=== PATIENT | female | born 1945 | race Caucasian/White ===

== ENCOUNTER → 2016-10-05 | Outpatient (CLI) | payer MEDICARE ==
[~2016-10-05] MED LIST: ALBU0.08 INH; ATOR10TA82 PO; ATV5 PO; CLOB-65 TOP; CLTP PO; FLUT0.15 NAE; IRBE1TAB50 PO; LEVAAER2 INH; LISI-461 PO; METO-217 PO; METO50TA7 PO; MULT-513 PO; NTRSLP4 SL; TIZA4CAP PO; VERA240T20 PO
--- NOTE | 2016-10-05 13:03 | DIAGNOSTIC IMAGING REPORT ---
CT SCAN OF THE PARANASAL SINUSES CLINICAL HISTORY: Chronic sinusitis. COMPARISON STUDY: CT scan of the paranasal sinuses dated 10/02/2008. TECHNIQUE: High-resolution CT scan of the paranasal sinuses is performed. Images are reviewed in the axial, sagittal, and coronal planes. IV contrast was not administered for this examination. The examination is performed using the fusion protocol. CT DOSE: 627.59 mGy.cm FINDINGS: Postoperative change: Findings suggest previous left maxillary antrectomy with antrostomy formation as well as bilateral ethmoid sinus resection. Maxillary antra: There is subtotal opacification of the left maxillary antrum which is somewhat hyperdense secretions. There is thickening and sclerosis of the sinus wall indicating chronicity. The right maxillary antrum is clear. Ethmoid cavities: Trace mucosal thickening is seen bilaterally. Sphenoid sinuses: Clear. Frontal sinuses: Trace mucosal thickening is similar right. Clear on the left. Ostiomeatal complexes: The left maxillary antrostomy is occluded. The right ostomy complex is patent. Frontoethmoidal and sphenoethmoidal recesses: Patent bilaterally. Carotid arteries: The carotid arteries are covered. The left carotid artery is protuberant. A septal attachment is seen on the right. Ethmoid roofs: There is slightly asymmetric elevation of the left ethmoid roof as compared to the right. Nasal turbinates: There is mild be bullosa of the right superior and middle nasal turbinates.. Nasal septum: There is rightward deviation of the bony nasal septum with a leftward projecting spur. Optic nerves: Covered. Orbits: The bony orbits are intact. Orbital contents are normal in appearance. Calvarium: The skeletal structures are osteopenic. The imaged calvarium is normal in appearance. Mastoid air cells: Well pneumatized. Brain parenchyma: Partially visualized brain parenchyma is within normal limits. IMPRESSION: 1. Chronic appearing left maxillary sinus disease as above. 2. No significant paranasal sinus disease is seen throughout the remaining paranasal sinuses. 3. Postoperative change as above. Electronically signed by: Marco Gonsales M.D. 10/05/2016 1:01 PM Dictated Date/Time: 10/05/2016 12:56 PM
[2016-10-05 16:47] LABS: BASO % 0.9 %; BASO ABS # 0.05 K/uL (0-0.2); COMPLETE YES; EOS % 3.6 %; HEMATOCRIT 42.1 % (37-47); IG% 0.2 %; LYMPH % 34.8 %; LYMPH ABS # 2.03 K/uL (1.2-3.4); MEAN CELL VOLUME 93.3 fL (80-100); MEAN CORPUSCULAR HEMOGLOBIN 31.5 pg (25-34); MEAN CORPUSCULAR HGB CONC 33.7 g/dl (32-36); MEAN PLATELET VOLUME 10.5 fL (7.4-10.4); MONO % 7.9 %; NEUT % 52.6 %; PLATELET COUNT 198 K/uL (130-400); RED BLOOD COUNT 4.51 M/uL (4.2-5.4); WHITE BLOOD COUNT 5.83 K/uL (4.8-10.8)
[2016-10-05 17:01] LABS: PROTHROMBIN TIME (PATIENT) 10.3 SECONDS (9.0-12.0)
[2016-10-05 17:16] LABS: POTASSIUM 3.7 mmol/L (3.5-5.1)
== END | disposition home or self-care (01) ==
LOC: C.CTS 12:35
DX: Z01.818 Encounter for other preprocedural examination (principal); J32.9 Chronic sinusitis, unspecified

== ENCOUNTER → 2016-10-16 | Day surgery (SDC) | payer MEDICARE, OTHER ==
[2016-10-12 08:47] VITALS: Ht 160 cm; Wt 97.7 kg
[~2016-10-16] VITALS: Ht 160 cm; Wt 97.7 kg
[~2016-10-16] MED LIST changes: -ATV5 PO; +CEFAZOLIN 2000 MG/60 ML D5W IV SCH; -CLOB-65 TOP; +DEXAMETHASONE SOD INJ 4 MG/ML VIAL ONE; +EpINEphrine INJ 1MG/ML AMP 1 MG/ML AMP ONE; +FENTANYL CITRATE INJ 50 MCG/1 ML 2 ML VIAL ONE; +HYDROCODONE/ACETAMOPHEN 5/325MG TAB PO PRN; +LACTATED RINGER'S 1000ML 1,000 ML IV SCH; +LIDOCAINE 4% MPF SOAK 5 ML = 1 DOSE TOP ONE; +LIDOCAINE HCL 2% 2 ML VIAL (20MG/ML) ONE; +LIDOCAINE/EPINEPHRINE 1% INJ 50 ML VIAL ONE; -LISI-461 PO; -METO50TA7 PO; +MIDAZOLAM HCL 1 MG/ML 2ML VIAL ONE; +ONDANSETRON INJ 2 MG/ML 2 ML VIAL IV PRN; +ONDANSETRON INJ 2 MG/ML 2 ML VIAL ONE; +OXYMETAZOLINE HCL 0.05% NA SPR 15 ML BTL PRN; +OXYMETAZOLINE HCL 0.05% NA SPR 15 ML BTL SCH; +PROPOFOL IV EMULSION 10 MG/ML 20 ML VIAL IV ONE; +SUCCINYLCHOLINE CHLORIDE 20 MG/ML 10 ML VIAL IV ONE
--- NOTE | 2016-10-16 07:30 | History & Physical Bridge - [place] ---
H&P Re-Evaluation Bridge Note: I have examined the patient, reviewed the History & Physical and in the interval since the performance of the History & Physical I have noted the following changes of clinical significance: No changes noted
--- NOTE | 2016-10-16 08:50 | Discharge Instructions ---
Discharge Instructions Date of Service October 16, 2016. Admission Reason for Admission: Chronic Sinusitis Discharge Discharge Diagnosis / Problem: SAME Discharge Goals Goal(s): Therapeutic intervention Activity Recommendations Activity Limitations: as noted below LIGHT ACTIVITY FOR 2WEEKS; NO NOSE BLOWING FOR 2WEEKS . Current Hospital Diet Patient's current hospital diet: Discharge Diet Recommended Diet: Regular Diet Procedures Procedures Performed: Left Maxillary Antrostomy Revision Pending Studies Studies pending at discharge: no Medical Emergencies . Who to Call and When: Medical Emergencies: If at any time you feel your situation is an emergency, please call 911 immediately. . Non-Emergent Contact Non-Emergency issues call your: Surgeon . . "Provider Documentation" section prepared by Ivan Torres. . VTE Core Measure Inpt VTE Proph given/why not?: SCD's
--- NOTE | 2016-10-16 09:24 | OPERATIVE REPORT ---
DATE OF OPERATION: 10/16/2016 PREOPERATIVE DIAGNOSIS: Left chronic maxillary sinusitis. POSTOPERATIVE DIAGNOSIS: Left chronic maxillary sinusitis. PROCEDURE: Revision left maxillary antrostomy with tissue removal. SURGEON: Ivan Torres MD ANESTHESIA: General endotracheal. ESTIMATED BLOOD LOSS: 50 mL. FINDINGS: Severely inflamed left maxillary sinus with purulence and inspissated secretions. SPECIMENS: 1. Left maxillary sinus mucosa for permanent pathological assessment. 2. Left maxillary sinus purulence for Gram stain, aerobic and anaerobic culture and sensitivity. COMPLICATIONS: None. INDICATIONS FOR THE PROCEDURE: The patient is a 71-year-old female with a history of chronic rhinosinusitis who underwent endoscopic sinus surgery by another physician in the past, still continued to have problems with left chronic maxillary sinusitis unresponsive to maximal medical therapy including systemic antibiotics and steroids. A posttreatment CT scan showed near total complete opacification of the left maxillary sinus with blockage of the left ostiomeatal complex. She presents for the above-mentioned procedure on an outpatient elective basis. DESCRIPTION OF PROCEDURE: After informed consent had been obtained from the patient, the patient was wheeled to the operating room and placed on the operating table in the supine position. Monitors were placed. After induction of general endotracheal anesthesia, the patient was prepped in the usual fashion for endoscopic sinus surgery. Lidocaine and epinephrine pledget was placed into the left nasal cavity and middle meatus. After allowing adequate time for vasoconstriction and anesthesia, the left-sided pledget was removed and a [place] elevator was used to medialize the left middle turbinate. The left middle turbinate and lateral nasal wall were injected with 1% lidocaine with 1:100,000 epinephrine. A lidocaine and epinephrine pledget was then placed into the left middle meatus. The left pledget was then removed and there was residual uncinate process, which was removed using a [place] elevator, straight Damir-Cut forceps, and powered instrumentation. The natural ostium of the left maxillary sinus was identified and this was enlarged anteriorly, posteriorly, and inferiorly using backbiting forceps and powered instrumentation. Immediately, there was abnormal left maxillary sinus mucosa, which was identified and several pieces of this were sent off for permanent pathological assessment due to the abnormal gross appearance of the mucosa. There is a large amount of purulence within the left maxillary sinus, which was trapped with a Lukens tube and sent off for Gram stain, aerobic and anaerobic culture and sensitivity. There was inspissated mucus, which was also embedded within the inferior aspect of the left maxillary sinus and it took a copious amount of irrigation and suction to remove the inspissated mucus in its entirety. A wide antrostomy was performed due to the severe findings, so that this can be cleaned out in the office as necessary. The sinonasal cavity on the left hand side was suctioned. Merogel was placed into the left ethmoid cavity and middle meatus. An orogastric tube was placed and the stomach was suctioned free of any stomach contents. This marked the end of the case. The patient tolerated the procedure well. There were no apparent complications. The patient was extubated and transferred to recovery room in stable condition. I attest to the content of the Intraoperative Record and any orders documented therein. Any exceptio ns are noted below.
[2016-10-16 09:33] VITALS: TEMP 36.1
--- NOTE | 2016-10-16 10:21 | Anesthesia Progress Nt - [facility] ---
Anesthesia Post Op Note Date & Time October 16, 2016 at 10:21 Vital Signs Pain Intensity: 4 Vital Signs Past 12 Hours Date Time Temp Pulse Resp B/P Pulse Ox O2 Delivery O2 Flow Rate FiO2 10/16/16 09:33 36.1 74 18 136/84 96 Room Air 10/16/16 09:30 101/54 10/16/16 09:26 72 13 97 10/16/16 09:26 72 13 10/16/16 09:25 36.6 95 Room Air 10/16/16 09:25 102/56 10/16/16 09:23 73 4 97 10/16/16 09:23 73 4 10/16/16 09:20 113/58 10/16/16 09:18 75 10 10/16/16 09:18 75 10 97 10/16/16 09:17 74 8 89 10/16/16 09:17 73 8 10/16/16 09:15 104/56 10/16/16 09:12 74 5 10/16/16 09:12 74 5 99 10/16/16 09:10 114/56 10/16/16 09:07 76 1 99 10/16/16 09:07 76 1 10/16/16 09:06 77 6 100 10/16/16 09:06 77 6 10/16/16 09:05 108/62 10/16/16 09:01 79 0 10/16/16 09:01 79 0 99 10/16/16 09:01 36 81 12 111/61 98 Mask 6 10/16/16 09:00 110/60 10/16/16 08:57 111/61 10/16/16 08:56 81 18 10/16/16 08:56 81 18 98 10/16/16 07:20 36.5 80 20 145/80 94 Room Air Notes Mental Status: alert / awake / arousable, participated in evaluation Pt Amnestic to Procedure: Yes Nausea / Vomiting: adequately controlled Pain: adequately controlled Airway Patency, RR, SpO2: stable & adequate BP & HR: stable & adequate Hydration State: stable & adequate Anesthetic Complications: no major complications apparent Pt doing well.
[2016-10-16 10:35] VITALS: BP 129/75; PULSE 76; O2SAT 94
== END | disposition home or self-care (01) ==
LOC: X.SURG 06:55
DX: J32.0 Chronic maxillary sinusitis (principal); I10 Essential (primary) hypertension; E78.5 Hyperlipidemia, unspecified; J45.909 Unspecified asthma, uncomplicated; K21.0 Gastro-esophageal reflux disease with esophagitis; F32.9 Major depressive disorder, single episode, unspecified; M81.0 Age-related osteoporosis without current pathological fracture; Z79.899 Other long term (current) drug therapy

== ENCOUNTER → 2017-03-05 | Outpatient (CLI) | payer MEDICARE ==
[~2017-03-05] MED LIST changes: -ATOR10TA82 PO; +ATOR10TA88 PO; -CEFAZOLIN 2000 MG/60 ML D5W IV SCH; -DEXAMETHASONE SOD INJ 4 MG/ML VIAL ONE; -EpINEphrine INJ 1MG/ML AMP 1 MG/ML AMP ONE; -FENTANYL CITRATE INJ 50 MCG/1 ML 2 ML VIAL ONE; -FLUT0.15 NAE; -HYDROCODONE/ACETAMOPHEN 5/325MG TAB PO PRN; -LACTATED RINGER'S 1000ML 1,000 ML IV SCH; -LIDOCAINE 4% MPF SOAK 5 ML = 1 DOSE TOP ONE; -LIDOCAINE HCL 2% 2 ML VIAL (20MG/ML) ONE; -LIDOCAINE/EPINEPHRINE 1% INJ 50 ML VIAL ONE; -MIDAZOLAM HCL 1 MG/ML 2ML VIAL ONE; -ONDANSETRON INJ 2 MG/ML 2 ML VIAL IV PRN; -ONDANSETRON INJ 2 MG/ML 2 ML VIAL ONE; -OXYMETAZOLINE HCL 0.05% NA SPR 15 ML BTL PRN; -OXYMETAZOLINE HCL 0.05% NA SPR 15 ML BTL SCH; -PROPOFOL IV EMULSION 10 MG/ML 20 ML VIAL IV ONE; -SUCCINYLCHOLINE CHLORIDE 20 MG/ML 10 ML VIAL IV ONE
== END | disposition home or self-care (01) ==
LOC: C.PATHSPEC 14:28
PROVIDERS: ATTEND Dermatology
DX: L57.0 Actinic keratosis (principal)

== ENCOUNTER 2024-07-18 09:47 | Inpatient (IN) ==
[2024-07-18] MEDS: SODIUM CHLORIDE 0.9% 500 ML IV ONE (10:47)
[2024-07-18 10:57] LABS: Basophils # (auto) 0.03 K/uL (0.00-0.20); Basophils % (auto) 0.4 %; Eosinophils # (auto) 0.15 K/uL (0.00-0.50); Hematocrit (blood only) 42.4 % (37.0-47.0); Hemoglobin 14.2 g/dl (12.0-16.0); Immature Granulocytes # (auto) 0.03 K/uL (0.01-0.20); Immature Granulocytes % (auto) 0.4 %; Lymphocytes % (auto) 20.5 %; Mean Corpuscular Hemoglobin 31.3 pg (25.0-34.0); Mean Corpuscular Hgb Conc 33.5 g/dL (32.0-36.0); Mean Corpuscular Volume 93.6 fL (80.0-100.0); Mean Platelet Volume 9.6 fL (9.4-12.4); Monocytes # (auto) 0.58 K/uL (0.11-0.59); Monocytes % (auto) 7.9 %; Neutrophils # (auto) 5.03 K/uL (1.40-6.50); Neutrophils % (auto) 68.8 %; Platelet Count 213 K/uL (130-400); RDW Coefficient of Variation 11.7 % (11.5-14.5); RDW Standard Deviation 40.5 fL (36.4-46.3); Red Blood Count 4.53 M/uL (4.20-5.40); White Blood Count 7.32 K/ul (4.8-10.8)
--- NOTE | 2024-07-18 11:00 | Emergency Department Note ---
Impression & Plan Acute pancreatitis ADMIT ED Provider Note HPI: History obtained from patient. The patient is a 79-year-old female who presents the emergency department with a chief complaint of abdominal pain. Patient states that on 07/04 she had a ultrasound-guided biopsy done of her pancreas at [facility]. Patient states that since she had her procedure she has had some abdominal pain that radiates to her left flank area. Patient states that her primary doctor was concerned that she might have a post biopsy pancreatitis and therefore she was referred to the ER for further management. Patient states she has had a CT scan done in the outpatient setting shortly after her procedure that did show evidence of pancreatitis. Patient denies any vomiting, on arrival here to the ED the patient is hypertensive but otherwise hemodynamically stable, she appears to be in no acute distress. ROS: - Per HPI Differential Diagnosis: Acute pancreatitis, gallstone pancreatitis, acute choledocholithiasis, acute gastritis, small bowel obstruction, abscess, hemorrhage from biopsy site, amongst other potential pathologies. *Outpatient medications and allergy history reviewed. PE: General: Alert HEENT: Normocephalic, trachea midline Eyes: Extraocular eye movement is intact, no scleral erythema Pulmonary: Clear to auscultation bilaterally, no wheezing Cardio: Regular rate and rhythm GI: Abdomen is soft to palpation, there is tenderness over the mid abdomen to palpation without guarding or rigidity : No suprapubic tenderness MSK: No evidence of trauma or malformation of the extremities, no edema Skin: No evidence of rash Neuro: Alert, no focal deficits Psychiatric: Cooperative INDEPENDENT INTERPRETATIONS: rework operator: (As interpreted by myself): - An order was placed for continuous cardiac monitoring - Patient was noted to be in sinus rhythm with a rate of 70 EKG: (As interpreted by myself): Rate: 72 Rhythm: Normal sinus rhythm Intervals: Within normal limits ST changes: No ST elevation Time: 1044 Interventions provided in ED: -IV fluid bolus, IV morphine, IV Zofran Medical Decision Making: IV was established lab work obtained, patient was placed on public administration teacher. Lab work shows no leukocytosis, hemoglobin is normal, platelet count is normal, CMP does not show any evidence of any critical findings, troponin is negative x 1. EKG shows normal sinus rhythm with a rate of [address] imaging of the abdomen pelvis with IV contrast was obtained, there is a nonspecific density of the pancreatic tail consistent with possible cystic lesion, pseudocyst, or postbiopsy fluid collection per the interpreting radiologist. There is also evidence of acute pancreatitis. Incidental note of pulmonary embolism in the segmental and subsegmental branches of the right lower lobe are also noted. On my reassessment the patient has some nausea but her pain is improved from previous. I discussed the patient's presentation and CT imaging findings with on-call gastroenterology, Dr. Ferreira. Following our discussion he does have suspicion that the nonspecific density noted on CT imaging is likely related to the patient's recent biopsy, this does correlate with her symptom onset as well. He recommends n.p.o. status, IV fluid resuscitation, and pain medicine as needed. At this time there is low suspicion that the density represents any acute hemorrhage therefore the patient would be considered safe for anticoagulation/heparinization given finding of pulmonary embolism on CT imaging. I discussed all of the above findings with the on-call PA for the admitting service for Beatriz Syed PA-C, the patient was placed for admission in stable condition to the service of Dr. Wallace. Will defer initiation and preferences for anticoagulation/heparinization to the admitting team following our discussion. Consultants/Discussions held with other healthcare providers: -Hospitalist, Dr. Wallace -Gastroenterology, Dr. Ferreira Disposition discussion held by myself with: -Patient Diagnosis: 1. Acute pancreatitis 2. Abdominal pain, acute 3. Pulmonary embolism, acute, right lower lobe Disposition: Admission Arian Montague DO Emergency Medicine Past Med/Surg History Problem List (Updated 07/18/24 @ 16:50 by Arian Montague DO) Acute pancreatitis (Acute) Pulmonary emboli Acute pancreatitis Cervical radiculopathy Cervicalgia Cervical postlaminectomy syndrome Cervical myofascial pain syndrome Encounter for pre-operative examination Osteoporosis (Chronic) Asthma, cough variant (Chronic) GERD (gastroesophageal reflux disease) (Chronic) Dysphagia (Chronic) HTN (hypertension) (Chronic) Dyslipidemia (Chronic) Migraine (Chronic) ACS (acute coronary syndrome) Medical History (Updated 07/18/24 @ 16:50 by Arian Montague DO) Nausea and vomiting after administration of anesthetic agent Skin cancer of breast left Pancreatitis GERD (gastroesophageal reflux disease) Migraine Gastric bezoar Hyperlipidemia Hypertension Asthma "stress induced" Surgical History Hx of Moh's micrographic surgery for skin cancer left breast skin cancer History of bilateral salpingo-oophorectomy (BSO) History of partial hysterectomy History of dilatation and curettage History of esophagogastroduodenoscopy (EGD) History of colonoscopy History of exploratory laparotomy x2 for lysis of adhesions History of Nathan fundoplication History of umbilical hernia repair History of colostomy reversal 12/2008 @ [facility] History of colectomy 10/2008--sigmoid colectomy and colostomy d/t perforation @ [facility] History of appendectomy History of cholecystectomy History of tonsillectomy and adenoidectomy History of endoscopic sinus surgery S/P cervical spinal fusion C2-5; normal ROM History of cardiac cath 2015, no stent follows with Dr. Hart Family History Aunt Breast cancer Cancer Uterine cancer Mother Parkinson disease Father Stroke Social History Smoking Status: Never smoker Second Hand Exposure: Yes (both parents smoked); Do You Dip or Chew Tobacco: No; Hx Alcohol Use: Yes Alcohol type: wine Hx Substance Use: No Preferred Language: Wolof Communication Ability: Effective Automatic Line Set Up Mechanic Required: No Beliefs That Will Affect Care: None marital status: Current Living Situation: Spouse current occupational status: retired Feels Safe at Home: Yes Assistive Devices: Glasses Allergies Allergies Allergy/AdvReac Type Severity Reaction Status Date / Time moxifloxacin [From Avelox] Allergy Severe Unknown Verified 06/09/24 09:40 barium sulfate AdvReac Severe RUPTURE OF Verified 06/09/24 09:40 BOWEL codeine AdvReac Unknown EFFECTS Verified 06/09/24 09:40 LAST ABOUT 1 WEEK LYNSEY Inhibitors AdvReac Cough Verified 06/09/24 09:40 ciprofloxacin [From Cipro] AdvReac tendon Verified 06/09/24 09:40 pain and weakness Home Meds Home Medications Medication Instructions Recorded Confirmed atorvastatin 20 mg tablet 20 mg PO PM 01/12/23 07/18/24 losartan 100 mg tablet 100 mg PO DAILY 01/12/23 07/18/24 metoprolol succinate 50 mg 50 mg PO DAILY 01/12/23 07/18/24 tablet,extended release 24 hr tizanidine 4 mg capsule 4 mg PO DAILY PRN muscle spasms 01/12/23 07/18/24 verapamil 240 mg tablet,extended 360 mg PO DAILY 02/27/24 07/18/24 release hydrocodone 5 mg-acetaminophen 325 1 tab PO Q8H 07/18/24 07/18/24 mg tablet pantoprazole 40 mg tablet,delayed 40 mg PO QAM 07/18/24 07/18/24 release Results & Data (ED) Vital Signs Vital Signs - 24 hr 07/18/24 09:52 07/18/24 10:44 07/18/24 10:44 Temperature 36.9 C Temperature Source Temporal Artery Scan Pulse Rate 79 Pulse Rate [Left Finger] 72 Respiratory Rate 18 17 Respiratory Effort / Characteristics Non-Labored Spontaneous Respiratory Depth Normal Respiratory Pattern Regular Blood Pressure 130/68 Blood Pressure [Left Arm] 159/91 H Blood Pressure Mean 88 Blood Pressure Mean [Left Arm] 113 Blood Pressure Position Sitting Blood Pressure Position [Left Arm] Pulse Oximetry 93 94 94 Oxygen Delivery Method Room Air Room Air Room Air Sepsis Recent Fever Within 48 Hours No Sepsis New/Unexplained Change in Mental Status N/A Sepsis Action Taken by Nursing No Action Required 07/18/24 12:05 07/18/24 13:13 Temperature Temperature Source Pulse Rate 64 Pulse Rate [Left Finger] 70 Respiratory Rate 16 Respiratory Effort / Characteristics Respiratory Depth Respiratory Pattern Blood Pressure Blood Pressure [Left Arm] 195/91 H Blood Pressure Mean Blood Pressure Mean [Left Arm] 125 Blood Pressure Position Blood Pressure Position [Left Arm] Semi-fowlers Pulse Oximetry 96 Oxygen Delivery Method Room Air Sepsis Recent Fever Within 48 Hours Sepsis New/Unexplained Change in Mental Status Sepsis Action Taken by Nursing Laboratory Data 07/18/24 10:34 07/18/24 10:34 Lab Results 07/18/24 07/18/24 Range/Units 10:34 12:06 WBC 7.32 (4.8-10.8) K/ul RBC 4.53 (4.20-5.40) M/uL Hgb 14.2 (12.0-16.0) g/dl Hct 42.4 (37.0-47.0) % MCV 93.6 (80.0-100.0) fL MCH 31.3 (25.0-34.0) pg MCHC 33.5 (32.0-36.0) g/dL RDW Std Deviation 40.5 (36.4-46.3) fL RDW Coeff of Nancy 11.7 (11.5-14.5) % Plt Count 213 (130-400) K/uL MPV 9.6 (9.4-12.4) fL Immature Gran % (Auto) 0.4 % Neut % (Auto) 68.8 % Lymph % (Auto) 20.5 % [place] % (Auto) 7.9 % Eos % (Auto) 2.0 % Baso % (Auto) 0.4 % Neut # (Auto) 5.03 (1.40-6.50) K/uL Lymph # (Auto) 1.50 (1.20-3.40) K/uL [place] # (Auto) 0.58 (0.11-0.59) K/uL Eos # (Auto) 0.15 (0.00-0.50) K/uL Baso # (Auto) 0.03 (0.00-0.20) K/uL Immature Gran # (Auto) 0.03 (0.01-0.20) K/uL Sodium 136 (136-145) mmol/L Potassium 4.0 (3.5-5.1) mmol/L Chloride 101 (98-107) mmol/L Carbon Dioxide 28 (21-32) mmol/L Anion Gap 7 (3-11) BUN 14 (6-23) mg/dl Creatinine 0.81 (0.6-1.2) mg/dl Est Cr Clr Drug Dosing Not Reportable eGFR 74.72 BUN/Creatinine Ratio 17.3 (10-20) Glucose 164 H (70-99(Fasting)) mg/dl Calcium 9.6 (8.6-10.3) mg/dl Total Bilirubin 0.6 (0.2-1.0) mg/dl AST 14 (13-39) U/L ALT 23 (7-52) U/L Alkaline Phosphatase 65 (34-104) U/L Troponin I High Sens 3.7 (0-14) pg/ml Total Protein 6.2 (6.0-8.3) gm/dl Albumin 3.8 (3.4-5.0) gm/dl Globulin 2.4 L (2.5-4.0) gm/dl Albumin/Globulin Ratio 1.6 (0.9-2) Lipase 15 (11-82) U/L Urine Color Dark Yellow Urine Appearance Cloudy A (Clear) Urine pH 7.0 (4.5-7.5) Ur Specific [place] 1.021 (1.000-1.030) Urine Protein 2+ H (Negative) Urine Glucose (UA) Negative (Negative) Urine Ketones Trace H (Negative) Urine Blood Negative (Negative) Urine Nitrite Negative (Negative) Urine Bilirubin Negative (Negative) Urine Urobilinogen Negative (Negative) Ur Leukocyte Esterase 1+ H (Negative) Urine WBC (Auto) 6-10 H (0-5) /hpf Urine RBC (Auto) 0-2 (0-2) /hpf U Hyaline Cast (Auto) 0-2 (0-2) /lpf U Epithel Cells (Auto) 11-20 H (0-2) /hpf Urine Bacteria (Auto) 2+ H (None Seen) Calcium Oxalate Crystal Present A (None Prsent) Urine Mucus Present A (None Prsent) Administered Medications Discontinued Medications Hydromorphone HCl (Hydromorphone Inj 0.5 Mg/0.5 Ml Syr) 0.5 mg IV NOW STA Stop: 07/18/24 13:32 Last Admin: 07/18/24 13:42 Dose: 0.5 mg Documented By: CEF Sodium Chloride (Nss) 500 mls @ 999 mls/hr IV .Q31M ONE Stop: 07/18/24 10:55 Last Infusion: 07/18/24 12:04 Dose: Infused Documented By: Admin: 07/18/24 10:47 Dose: 999 mls/hr Documented By: ML Sodium Chloride (Nss) 1,000 mls @ 999 mls/hr IV .Q1H1M ONE Stop: 07/18/24 13:55 Last Admin: 07/18/24 13:47 Dose: 999 mls/hr Documented By: CEF Ioversol (Optiray 320 100ml) 94 ml IV ONCE ONE Stop: 07/18/24 11:44 Last Admin: 07/18/24 11:43 Dose: 94 ml Documented By: SARAH Ioversol (Optiray 320 125ml) 112 ml IV ONCE ONE Stop: 07/18/24 13:59 Last Admin: 07/18/24 13:58 Dose: 112 ml Documented By: SARAH Morphine Sulfate (Morphine Sulfate 4 Mg/Ml 1 Ml Carp\\Vial) 4 mg IV NOW STA Stop: 07/18/24 10:59 Last Admin: 07/18/24 12:02 Dose: 4 mg Documented By: CEF Ondansetron HCl (Ondansetron Inj 2 Mg/Ml 2 Ml Vial) 4 mg IV NOW STA Stop: 07/18/24 10:59 Last Admin: 07/18/24 12:00 Dose: 4 mg Documented By: CEF Imaging Data Radiologist's Impression: Abdomen/Pelvis CT 07/18/24 11:[address] WITH IV CONTRAST CT DOSE: 1447.39 mGy.cm HISTORY: Acute epigastric abdominal pain with reported pancreatitis abd pain, recent pacreas biopsy TECHNIQUE: Multiaxial CT images of the abdomen and pelvis were performed following the IV administration of 94 cc of Optiray, A dose lowering technique was utilized adhering to the principles of ALARA. COMPARISON STUDY: 12/22/2022, 10/28/2022, 03/23/2009, chest CT 10/28/2018 FINDINGS: Segmental and subsegmental right lower lobe pulmonary emboli incidentally noted. Small Bochdalek hernias. No pneumatosis or pneumoperitoneum. Unremarkable spleen, adrenal glands and liver. Cholecystectomy with intrahepatic and extrahepatic biliary ductal dilation which is likely postsurgical. The common bile duct measures 1.4 cm. Ovoid circumscribed centrally hypodense lesion posterior to the pancreatic tail on image 121 series 3 redemonstrated in retrospect this is unchanged dating back to the 12/22/2022 study and is new from 10/28/2018. There is mild interstitial and peripancreatic inflammatory stranding adjacent to the pancreatic tail. Intermediate density 2.1 x 1.7 x 1.5 cm lesion involves the superior aspect of the pancreatic tail on image 107 series 3 which is new from the prior studies. This abuts the adjacent greater curvature of the stomach. No pancreatic ductal dilation. No drainable fluid collections. Mild nonspecific bilateral perinephric stranding. Mild cortical thinning of the kidneys without hydronephrosis. Probable small cyst of the lateral interpolar left kidney. Unremarkable urinary bladder. Hysterectomy. The aorta and IVC are unremarkable. No lymphadenopathy. Small hiatal hernia. Colonic diverticulosis without acute diverticulitis. Sigmoid colon anastomotic suture. Prior ventral abdominal wall herniorrhaphy repair. No acute fracture. IMPRESSION: 1. Right lower lobe segmental and subsegmental pulmonary emboli. 2. Findings suggestive of mild acute pancreatitis of the pancreatic tail with intermediate density 2.1 cm pancreatic tail lesion which is new from the prior exam abutting the adjacent greater curvature of the stomach. Differential considerations include a solid versus complex primary cystic pancreatic lesion, complex pseudocyst versus post-biopsy collection. Follow-up recommended. 3. Hypodense 1.9 cm lesion posterior to the pancreatic tail redemonstrated which is similar in appearance to the study from 12/22/2022. 4. No drainable peripancreatic fluid collections or pancreatic ductal dilation. 5. Colonic diverticulosis without acute diverticulitis. ACT 112: Negative or not required by law. The above report was generated using voice recognition software. It may contain grammatical, syntax or spelling errors. Electronically signed by: Esequiel Gaston M.D. 07/18/2024 12:28 PM Discharge Plan Visit Data Chief Complaint: Referred by Doctor Stated Complaint: PANCREATITIS, REF BY DR CRESPO ED Provider: Arian Montague Discharge Problem: Acute pancreatitis Patient Disposition: Admitted As Inpatient Discharge Instructions Interventions: ED Discharge Assessment Last Done: 07/18/24 14:51
[2024-07-18 11:07] LABS: Alanine Aminotransferase 23 U/L (7-52); Albumin Globulin Ratio 1.6 (0.9-2); Albumin Level 3.8 gm/dl (3.4-5.0); Alkaline Phosphatase 65 U/L (34-104); Anion Gap 7 (3-11); Aspartate Aminotransferase 14 U/L (13-39); BUN Creatinine Ratio 17.3 (10-20); Bilirubin,Total 0.6 mg/dl (0.2-1.0); Blood Urea Nitrogen 14 mg/dl (6-23); Calcium 9.6 mg/dl (8.6-10.3); Carbon Dioxide 28 mmol/L (21-32); Chloride 101 mmol/L (98-107); Globulin 2.4 gm/dl (2.5-4.0); Glucose 164 mg/dl (70-99(Fasting)); Lipase 15 U/L (11-82); Sodium 136 mmol/L (136-145); Total Protein 6.2 gm/dl (6.0-8.3)
[2024-07-18 11:13] LABS: Troponin I High Sensitivity 3.7 pg/ml (0-14)
[2024-07-18] MEDS: OPTIRAY 320 100ml IV ONE (11:43)
[2024-07-18] MEDS: ONDANSETRON INJ 2 MG/ML 2 ML VIAL IV STA (12:00)
[2024-07-18] MEDS: MoRPHine SULFATE 4 MG/ML 1 ML CARP\\VIAL IV STA (12:02)
--- NOTE | 2024-07-18 12:29 | CT Scan Report ---
ABDOMEN AND PELVIS CT WITH IV CONTRAST CT DOSE: 1447.39 mGy.cm HISTORY: Acute epigastric abdominal pain with reported pancreatitis abd pain, recent pacreas biopsy TECHNIQUE: Multiaxial CT images of the abdomen and pelvis were performed following the IV administrat ion of 94 cc of Optiray, A dose lowering technique was utilized adhering to the principles of ALARA. COMPARISON STUDY: 12/22/2022, 10/28/2022, 03/23/2009, chest CT 10/28/2018 FINDINGS: Segmental and subsegmental right lower lobe pulmonary emboli incidentally noted. Small Dwayne dalek hernias. No pneumatosis or pneumoperitoneum. Unremarkable spleen, adrenal glands and liver. Cholecystectomy with intrahepatic and extrahepatic vonnie iary ductal dilation which is likely postsurgical. The common bile duct measures 1.4 cm. Ovoid circum scribed centrally hypodense lesion posterior to the pancreatic tail on image 121 series 3 redemonstra narciso in retrospect this is unchanged dating back to the 12/22/2022 study and is new from 10/28/2018. Ther e is mild interstitial and peripancreatic inflammatory stranding adjacent to the pancreatic tail. Int ermediate density 2.1 x 1.7 x 1.5 cm lesion involves the superior aspect of the pancreatic tail on im age 107 series 3 which is new from the prior studies. This abuts the adjacent greater curvature of th e stomach. No pancreatic ductal dilation. No drainable fluid collections. Mild nonspecific bilateral perinephric stranding. Mild cortical thinning of the kidneys without hydro nephrosis. Probable small cyst of the lateral interpolar left kidney. Unremarkable urinary bladder. H ysterectomy. The aorta and IVC are unremarkable. No lymphadenopathy. Small hiatal hernia. Colonic div erticulosis without acute diverticulitis. Sigmoid colon anastomotic suture. Prior ventral abdominal w all herniorrhaphy repair. No acute fracture. IMPRESSION: 1. Right lower lobe segmental and subsegmental pulmonary emboli. 2. Findings suggestive of mild acute pancreatitis of the pancreatic tail with intermediate density 2. 1 cm pancreatic tail lesion which is new from the prior exam abutting the adjacent greater curvature of the stomach. Differential considerations include a solid versus complex primary cystic pancreatic lesion, complex pseudocyst versus post-biopsy collection. Follow-up recommended. 3. Hypodense 1.9 cm lesion posterior to the pancreatic tail redemonstrated which is similar in appear ance to the study from 12/22/2022. 4. No drainable peripancreatic fluid collections or pancreatic ductal dilation. 5. Colonic diverticulosis without acute diverticulitis. ACT 112: Negative or not required by law. The above report was generated using voice recognition software. It may contain grammatical, syntax o r spelling errors. Electronically signed by: Esequiel Gaston M.D. 07/18/2024 12:28 PM
--- NOTE | 2024-07-18 13:03 | History & Physical Report ---
Date of Service July 18, 2024 Assessment & Plan (1) Acute pancreatitis: (2) Pulmonary emboli: (3) HTN (hypertension): (4) Dyslipidemia: (5) GERD (gastroesophageal reflux disease): Plan -Admit to PCU with acute onset of new pulmonary emboli right lower lobe segmental and subsegmental -Obtain CT PE study -Initiate anticoagulation-Lovenox 1 mg/kgdoes not appear to have fluid collection of blood surrounding the pancreas status post biopsy on 06/30/2024. Will need to discuss DOAC therapy and CM to assist with dc planning with affordability. - Doppler BLE to r/o DVT - GI consulted-Appreciate recs - CT abdomen pelvis reviewed as above - Pain control with MS IV, oxycodone, will trial one dose of dilaudid with continued pain in the ER now - Cont LR 100mL/hr which NPO for now with pancreatitis. May have meds with sip of water. - UA appears infected, will start on ceftriaxone IV, await ucx sensitivities. DVT ppx: teds, scds, lovenox 1mg/kg Q12H Lines: PIV x 2 FEN/GI: N.p.o., IV NSS CODE: Full Dispo: From home, likely to remain in the hospital x 1-2 days A total of 78 minutes were spent with greater than 50% of that time face to face with the patient, personally reviewing all current laboratories, imaging studies, past medication reconciliation, outpatient chart review, and discussion with specialists to collaborate care for the patient with attending. Please see attending documentation for corrections and/or additions. History of Present Illness Chief Complaint: Abdominal pain Primary Care Provider: Carl Field MD This is a 79-year-old female with PMHx of acute pancreatitis, DM type II, CKD stage III, obesity, who presented to her family medicine practice this morning due to worsening abdominal pain over the past 2 weeks status post EGD with biopsy on 06/30/2024 for pancreatic cyst workup. CT on 07/04/24 confirmed mild acute pancreatitis. She has had previous episodes of pancreatitis precipitated by a gallbladder attack several years ago. She admits to being less active than normal since having biopsy completed. She has been spending a large portion of her time in recliner/seated.She has been attempting to manage in the outpatient setting with hydrocodone/acetaminophen for pain however it is progressively worsening. Epigastric, radiating to back and the left side. Today she is also noticing having R sided pain which is worsened with deep breaths. Also admits to nausea, fatigue recently also notes fever and elevated heart rate. Infrequent bowel movements which she attributes to poor p.o. intake due to pain and nausea. Patient had trial of dose of morphine sulfate in the ER, worked for some time but now is worn off. She reports that it did not affect the right sided chest pain with inspiration and is asking for a different pain medication. Patient's is present at bedside and supports the history. CT abd/pelvis reviewed this morning and has new findings of RLL pulmonary emboli segmental and subsegmental. Also shows mild acute pancreatitis of pancreatic tail with 2.1 cm pancreatic tail lesion which was evaluated by radiology on imaging and is suggestive of possible biopsy fluid collection. No drainable peripancreatic fluid collections or pancreatic ductal dilation. Colonic diverticulosis without acute diverticulitis. WBC is stable at 7.32, afebrile, lipase is 15 on admission. UA appears to be possibly infected with WBC 6-10, 1+ esterase, 2+ bacteria. Allergies Allergy/AdvReac Type Severity Reaction Status Date / Time moxifloxacin [From Avelox] Allergy Severe Unknown Verified 06/09/24 09:40 barium sulfate AdvReac Severe RUPTURE OF Verified 06/09/24 09:40 BOWEL codeine AdvReac Unknown EFFECTS Verified 06/09/24 09:40 LAST ABOUT 1 WEEK LYNSEY Inhibitors AdvReac Cough Verified 06/09/24 09:40 ciprofloxacin [From Cipro] AdvReac tendon Verified 06/09/24 09:40 pain and weakness Home Medications Medication Instructions Recorded Confirmed Type atorvastatin 20 mg tablet 20 mg PO PM 01/12/23 07/18/24 History losartan 100 mg tablet 100 mg PO DAILY 01/12/23 07/18/24 History metoprolol succinate 50 mg 50 mg PO DAILY 01/12/23 07/18/24 History tablet,extended release 24 hr tizanidine 4 mg capsule 4 mg PO DAILY PRN muscle spasms 01/12/23 07/18/24 History verapamil 240 mg tablet,extended 360 mg PO DAILY 02/27/24 07/18/24 History release hydrocodone 5 mg-acetaminophen 325 1 tab PO Q8H 07/18/24 07/18/24 History mg tablet pantoprazole 40 mg tablet,delayed 40 mg PO QAM 07/18/24 07/18/24 History release Past Med/Surg History Problem List (Updated 07/18/24 @ 16:50 by Arian Montague DO) Acute pancreatitis (Acute) Pulmonary emboli Acute pancreatitis Cervical radiculopathy Cervicalgia Cervical postlaminectomy syndrome Cervical myofascial pain syndrome Encounter for pre-operative examination Osteoporosis (Chronic) Asthma, cough variant (Chronic) GERD (gastroesophageal reflux disease) (Chronic) Dysphagia (Chronic) HTN (hypertension) (Chronic) Dyslipidemia (Chronic) Migraine (Chronic) ACS (acute coronary syndrome) Medical History (Updated 07/18/24 @ 16:50 by Arian Montague DO) Nausea and vomiting after administration of anesthetic agent Skin cancer of breast left Pancreatitis GERD (gastroesophageal reflux disease) Migraine Gastric bezoar Hyperlipidemia Hypertension Asthma "stress induced" Surgical History Hx of Moh's micrographic surgery for skin cancer left breast skin cancer History of bilateral salpingo-oophorectomy (BSO) History of partial hysterectomy History of dilatation and curettage History of esophagogastroduodenoscopy (EGD) History of colonoscopy History of exploratory laparotomy x2 for lysis of adhesions History of Nathan fundoplication History of umbilical hernia repair History of colostomy reversal 12/2008 @ [facility] History of colectomy 10/2008--sigmoid colectomy and colostomy d/t perforation @ [facility] History of appendectomy History of cholecystectomy History of tonsillectomy and adenoidectomy History of endoscopic sinus surgery S/P cervical spinal fusion C2-5; normal ROM History of cardiac cath 2016, no stent follows with Dr. Hart Family History Aunt Breast cancer Cancer Uterine cancer Mother Parkinson disease Father Stroke Social History Smoking Status: Never smoker Second Hand Exposure: Yes (both parents smoked); Do You Dip or Chew Tobacco: No; Hx Alcohol Use: No Hx Substance Use: No Preferred Language: Vietnamese Communication Ability: Effective [employer] Required: No Beliefs That Will Affect Care: None marital status: Current Living Situation: Spouse current occupational status: retired Other Information That Helps Us Care for You: No Feels Safe at Home: Yes Safety Concerns: Feels Safe At This Time Assistive Devices: None Review of Systems Review of Systems: Constitutional: No fever, sweats or chills Eyes: No diplopia, no worsening or blurred vision ENT: normal hearing, no trouble swallowing Respiratory: No cough, sputum, dyspnea at rest or on exertion, + pain in R chest with deep inspiration Cardiovascular: No chest pain, tightness or palpitations Abdomen: As per HPI, + epigastric pain radiating to back and Left flank, +nausea, no vomiting, no diarrhea or constipation Musculoskeletal: No joint pain, calf pain, swelling Neurologic: + generalized weakness, no numbness/tingling, or balance problems Psychiatric: No anxiety or depression Skin: No rash or itch Physical Exam Physical Exam: General: awake, alert, no apparent distress, Obese white female Head: Normocephalic, atraumatic ENT: PERRL, EOMI, no pharyngeal exudate, mucous membranes moist Chest: Clear to auscultation, on room air,O2 sats 97% no adventitious breath sounds Cardiac: Regular rate and rhythm, no murmur, no JVD, normal peripheral pulses, good capillary refill Abdominal: NABS x 4 quadrants, soft, nondistended, + Epigastric tenderness with palpation, no rebound or guarding Extremities: Normal inspection, RLE possible slightly larger than the LLE, no peripheral edema or erythema, calfs nontender to palpation Psych: Normal mood and affect Neuro: AAO x 3, strength intact bilaterally and rated 5/5, no motor deficits, speech is clear, no peripheral sensory deficits Results & Data Results & Data Vital Signs (Past 12 Hours) Vital Signs Temp Pulse Pulse Resp BP BP Pulse Ox 07/18/24 12:05 70 16 195/91 H 96 07/18/24 10:44 94 07/18/24 10:44 72 17 159/91 H 94 07/18/24 09:52 36.9 C 79 18 130/68 93 O2 Del Method 07/18/24 12:05 Room Air 07/18/24 10:44 Room Air 07/18/24 10:44 Room Air 07/18/24 09:52 Room Air Laboratory Results 07/18/24 10:34 WBC 7.32 RBC 4.53 Hgb 14.2 Hct 42.4 MCV 93.6 MCH 31.3 MCHC 33.5 RDW Std Deviation 40.5 RDW Coeff of Nancy 11.7 Plt Count 213 MPV 9.6 Immature Gran % (Auto) 0.4 Neut % (Auto) 68.8 Lymph % (Auto) 20.5 Pike % (Auto) 7.9 Eos % (Auto) 2.0 Baso % (Auto) 0.4 Neut # (Auto) 5.03 Lymph # (Auto) 1.50 Pike # (Auto) 0.58 Eos # (Auto) 0.15 Baso # (Auto) 0.03 Immature Gran # (Auto) 0.03 Sodium 136 Potassium 4.0 Chloride 101 Carbon Dioxide 28 Anion Gap 7 BUN 14 Creatinine 0.81 Est Cr Clr Drug Dosing Not Reportable eGFR 74.72 BUN/Creatinine Ratio 17.3 Glucose 164 H Calcium 9.6 Total Bilirubin 0.6 AST 14 ALT 23 Alkaline Phosphatase 65 Troponin I High Sens 3.7 Total Protein 6.2 Albumin 3.8 Globulin 2.4 L Albumin/Globulin Ratio 1.6 Lipase 15 Diagnostic Findings Abdomen/Pelvis CT 07/18/24 11:[address] WITH IV CONTRAST CT DOSE: 1447.39 mGy.cm HISTORY: Acute epigastric abdominal pain with reported pancreatitis abd pain, recent pacreas biopsy TECHNIQUE: Multiaxial CT images of the abdomen and pelvis were performed following the IV administration of 94 cc of Optiray, A dose lowering technique was utilized adhering to the principles of ALARA. COMPARISON STUDY: 12/22/2022, 10/28/2022, 03/23/2009, chest CT 10/28/2018 FINDINGS: Segmental and subsegmental right lower lobe pulmonary emboli inc identally noted. Small Bochdalek hernias. No pneumatosis or pneumoperitoneum. Unremarkable spleen, adrenal glands and liver. Cholecystectomy with intrahepatic and extrahepatic biliary ductal dilation which is likely postsurgical. The common bile duct measures 1.4 cm. Ovoid circumscribed centrally hypodense lesion posterior to the pancreatic tail on image 121 series 3 redemonstrated in retrospect this is unchanged dating back to the 12/22/2022 study and is new from 10/28/2018. There is mild interstitial and peripancreatic inflammatory stranding adjacent to the pancreatic tail. Intermediate density 2.1 x 1.7 x 1.5 cm lesion involves the superior aspect of the pancreatic tail on image 107 series 3 which is new from the prior studies. This abuts the adjacent greater curvature of the stomach. No pancreatic ductal dilation. No drainable fluid collections. Mild nonspecific bilateral perinephric stranding. Mild cortical thinning of the kidneys without hydronephrosis. Probable small cyst of the lateral interpolar left kidney. Unremarkable urinary bladder. Hysterectomy. The aorta and IVC are unremarkable. No lymphadenopathy. Small hiatal hernia. Colonic diverticulosis without acute diverticulitis. Sigmoid colon anastomotic suture. Prior ventral abdominal wall herniorrhaphy repair. No acute fracture. IMPRESSION: 1. Right lower lobe segmental and subsegmental pulmonary emboli. 2. Findings suggestive of mild acute pancreatitis of the pancreatic tail with intermediate density 2.1 cm pancreatic tail lesion which is new from the prior exam abutting the adjacent greater curvature of the stomach. Differential considerations include a solid versus complex primary cystic pancreatic lesion, complex pseudocyst versus post-biopsy collection. Follow-up recommended. 3. Hypodense 1.9 cm lesion posterior to the pancreatic tail redemonstrated which is similar in appearance to the study from 12/22/2022. 4. No drainable peripancreatic fluid collections or pancreatic ductal dilation. 5. Colonic diverticulosis without acute diverticulitis. ACT 112: Negative or not required by law. The above report was generated using voice recognition software. It may contain grammatical, syntax or spelling errors. Electronically signed by: Esequiel Gaston M.D. 07/18/2024 12:28 PM Code Status & VTE Plan Code Status Full code-discussed with the patient and her at bedside Supervising Physician Co-Signing Physician Notes Patient seen and examined independently. Discussed with above provider. Patient presents with abdominal pain secondary to pancreatitis for which she is on IV fluids, analgesics and bowel rest. She was incidentally found to have PE for which she was started on Lovenox. She had biopsy of the pancreas lesion done as outpatient on June 30; reached out to so that he can discuss results with her. Inpatient GI consulted for comanagement. I have reviewed the advanced practitioner's documentation, and I agree with, and take responsibility for the plan of care I spent a total of 30 minutes coordinating, documenting, and providing care for this patient excluding time spent in the performance of separately billed services. All of the aforementioned completed while collaborating with the assigned advanced practitioner for a full treatment plan
[2024-07-18 13:15] LABS: Appearance Urine Cloudy (Clear); Bacteria Urine Automated 2+ (None Seen); Bilirubin Urine Negative (Negative); Blood Urine Negative (Negative); Calcium Oxalate Crystals Urine Present (None Prsent); Cast Urine Automated 0-2 /lpf (0-2); Color Urine Dark Yellow; Glucose Urine UA Negative (Negative); Ketones Urine Trace (Negative); Leukocyte Esterase Urine 1+ (Negative); Mucus Urine Present (None Prsent); Nitrite Urine Negative (Negative); Protein Urine 2+ (Negative); RBC Urine Automated 0-2 /hpf (0-2); Specific Gravity Urine 1.021 (1.000-1.030); Urobilinogen Urine Negative (Negative)
[2024-07-18] MEDS: HYDROmorphone INJ 0.5 MG/0.5 ML SYR IV STA (13:42)
[2024-07-18] MEDS: SODIUM CHLORIDE 0.9% 1,000 ML IV ONE (13:47)
[2024-07-18] MEDS: OPTIRAY 320 125ml IV ONE (13:58)
--- OUTSIDE RECORDS SUMMARY | 2024-07-18 14:15 | External Medical Summary | Summary of Care ---
Author Name Unknown Organization [facility] Address [address] [facility] [place] [address] Phone [phone] Care Team Providers Care Salon Assistant Name Role Phone Anderson Harshadmerrick JULIUS Primary Care Provider Reason for Visit * Reason Onset Date Comments Test Results 07/04/2024 Encounter Details Date Type Department Care Team (Late st Contact Info) Description 07/04/2024 Telephone Family Practice [facility] [address] [place] [address] Jamie Del Castillo MD [address] [place] [address] Test Results Allergies Active Allergy Reactions Criticality Noted Date Comments Alex Inhibitors Cough 11/25/2015 Barium Sulfate 12/14/2008 Secondary bowel obstruction following barium swallow Ciprofloxacin 08/30/2018 Tendon pain/weakness x2 Morphine And Codeine 07/22/1997 sleepy documented as of this encounter (statuses as of 07/04/2024) Medications CALCIUM + D 600-200 MG-UNIT PO TABS Take by mouth every evening. Active Multiple Vitamin (MULTIVITAMINS) Capsule Take 1 Capsule by mouth every evening. Active Tylenol PM Extra Strength 500-25 MG Oral Tablet (diphenhydrAMINE -APAP (sleep)) Take 1 Tablet by mouth as needed for Sleep. Uses around three times a week Active Atorvastatin Calcium 20 MG Oral Tablet (Lipitor)Indicat ions:Hyperlipide michael, unspecified TAKE 1 TABLET BY MOUTH EVERY DAY 90 Tablet 3 4 Active Additional Information Patient taking differently: TAKE 1 TABLET BY MOUTH EVERY DAY-in evening, Reported on 07/04/2024 Clobetasol Propionate 0.05 % External Cream (Temovate)Indica tions:Lichenific ation,Eczema, unspecified type Apply thin layer topically to affected area twice daily as needed. 60 g 1 4 Active Verapamil HCl ER 240 MG Oral Tablet Extended Release (Isoptin SR) TAKE 1.5 TABLETS BY MOUTH IN THE MORNING 135 Tablet 1 4 Active Losartan Potassium 100 MG Oral Tablet (Cozaar)Indicati ons:Essential hypertension with goal blood pressure less than 140/90 TAKE 1 TABLET BY MOUTH EVERY DAY 90 Tablet 3 4 Active tiZANidine HCl 4 MG Oral CapsuleIndicatio ns:Cervicalgia TAKE 1 CAPSULE BY MOUTH EVERY DAY NEEDED FOR MUSCLE SPASMS 90 Capsule 1 4 Active Pantoprazole Sodium 40 MG Oral Tablet Delayed Release (Protonix)Indica tions:Gastroesop hageal reflux disease with esophagitis without hemorrhage Take 1 Tablet by mouth in the morning. 180 Tablet 3 4 Active Metoprolol Succinate ER 50 MG Oral Tablet Extended Release 24 Hour (toPROL XL)Indications:E ssential hypertension with goal blood pressure less than 140/90 TAKE 1 TABLET BY MOUTH EVERY DAY 90 Tablet 3 4 Active HYDROcodone-Acet aminophen 5-325 MG Oral Tablet Take 1 Tablet by mouth every 8 hours as needed for Pain, Mild or Pain, Breakthrough. 12 Tablet 5 Active Ondansetron HCl 4 MG Oral Tablet Take 1 Tablet by mouth every 8 hours as needed for Nausea. 20 Tablet 5 Active Hospital, Clinic, or Other Facility Administered Medication Ordered Dose Route Frequency Start Date End Date Status sodium chloride 0.9 % flush/inj 10 mL 10 mL IV PUSH ONCE 07/04/2024 07/05/2024 Active documented as of this encounter (statuses as of 07/04/2024) Active Problems Problem Noted Date Diagnosed Date Erythema migrans (Lyme disease) 12/20/2022 Malaise and fatigue 12/20/2022 Coronary artery disease invo lving [place] coronary artery of [place] heart without angina pectoris 08/03/2021 Chronic kidney disease, stage 3a 02/28/2021 Overview: Per CKD protocol [place] (myocardial infarction) 01/28/2021 Gastric dysmotility 07/26/2020 History of colon polyps 08/20/2018 Palpitations 07/10/2018 Well adult exam 02/28/2018 Overview (04/28/2024): 05/11 EGD suspic for Richard's==PATH metaplasia only 04/09 EGD-+hyperplastic polyp w/metaplasia. Mild-mod active gastritis. 02/07 TTE normal EF + Grade 2 DDys. EGD + hyperplastic polyp--rec removal. 01/06 DEXA osteopenia 09/06 FOB WNL 06/07 EGD mild chronic carditis 2008 Needed emergency surgery post barium swallow-"peritonitis"/ hardened barium. 07/26/20 FOB WNL. Scan. 06/06 EGD , dilated. Swallow study. [facility] Board. 08/2019 FOB/FIT WNL 06/06 EGD hyperplastic polyps. 11/03 FOB WNL 2016 had elev a1c AFTER rounds of steroids. Repeat 2018 6.3 Hx bezoar, fundiplication. 2008 Needed emergency surgery post barium swallow-"peritonitis"/ hardened barium. 2008 colonoscopy WNL. Type 2 diabetes mellitus wit h hemoglobin A1c goal of less than 8.0% 02/28/2018 Dyslipidemia, goal LDL below 100 04/03/2017 Severe obesity with body mas s index (BMI) of 35.0 to 39.9 with serious comorbidity 04/12/2016 Overview (04/03/2018): ICD-10 update of inactive diagnosis Essential hypertension with goal blood pressure less than 140/90 07/13/2015 Asthma (cough variant) 03/28/2004 Diaphragmatic hernia 09/03/2002 GERD (gastroesophageal reflux disease) 3 Dysphagia 06/23/2002 Overview (09/21/2015): ICD-10 update of inactive term CIRCUMSCRIBE SCLERODERMA 03/09/2000 COMMON MIGRAINE WITHOUT MENTION OF INTRACTABLE M IGRAINE Adopted documented as of this encounter (statuses as of 07/04/2024) Resolved Problems Problem Noted Date Diagnosed Date Resolved Date More than 50 percent stenosi s of right internal carotid artery 03/28/2023 03/28/2023 Subclavian arterial stenosis 03/28/2023 03/28/2023 NSTEMI (non-ST elevated myoc ardial infarction) 11/19/2015 12/16/2015 Dyslipidemia, goal LDL below 100 11/17/2010 09/27/2016 Asthma with severity to be determined 12/09/2009 07/15/2013 Overview (09/27/2015): Per Asthma Taxonomy ICD-10 update of inactive term ADVANCE DIRECTIVE INFORMATION 11/03/2008 04/21/2024 Overview (11/03/2008): Yes, Patient instructed to provide copy of advance directive for provider to review and to be scanned into Electronic Medical Record BENIGN NEOPLASM LG BOWEL 05/03/200510/2018 DIVERTICULITIS OF COLON 05/03/200509/16 Abdominal pain, epigastric 03/28/2004 0 10/30/2016 EXTRINSIC ASTHMA, UNSPEC 02/24/2004 HYPERPLASTIC COLON POLYP 06/25/200205/2017 HTN, goal below 130/80 09/27 documented as of this encounter (statuses as of 07/04/2024) Immunizations Name Administration Dates Next Due COVID-19 mRNA, LNP-s, No Pre serve, 2-Dose Series ([employer]) 05/05/2021,08/02/2020,07/12/2020 COVID-19, MRNA-LNP, PF, 30 M CG/0.3 mL, 12 YRS AND ABOVE, IM ([facility]) 04/02/2023 Covid-19, Mrna, Lnp-s, Pf, B ivalent, 30 Mcg, IM, 12 yrs and above ([employer]) 04/13/2022 PPD 06/25/2006 Pneumococcal Conjugate Vacc, 13 Valent (Prevnar) 02/28/2015 Pneumococcal Polysaccharide PPV23 (Pneumovax) 03/29/2016,02/17/2011,04/01/2006 Season Influenza, Quad, PF, Adjuvanted, 65+ Yrs, IM (FLUAD) 04/13/2020 Seasonal Influenza Vac., MDV , IM, 0.5 mL (Fluzone) 02/28/2015,04/18/2014,03/24/2013,04/17,02/17/2011,03/22/2010,03/22/2009 ,03/18/2008,05/07/2007,04/01/2006 Seasonal Influenza, High Dos e, Trivalent, PF, IM (Fluzone HD) 05/01/2024 Seasonal Influenza, PF, 6 M & above, IM , (FluLaval or Fluzone) 02/28/2018,04/03/2017 Seasonal Influenza, Quadriva lent Hd (Fluzone Hd) 03/27/2023,04/12/2022,03/16/2021 Seasonal Influenza, Quadriva lent, No Preserve, IM 03/29/2016 Seasonal Influenza, Trivalen t, Adjuvanted, 65+ YRS, PF, (Fluad) 03/25/2019 TDAP (age 10 and older)(Boostrix) 08/03/2021 TDAP, Age 7 and older, IM (Adacel) 06/30/2011 Tetanus Toxid Adsorbed 02/23/2006 Varicella Zoster Vaccine (Adult) 07/01/2012 Zoster Vaccine Recombinant (Shingrix) 04/30/2019 ,03/31/2019,02/11/2019 documented as of this encounter Social History Tobacco Use Types Packs/Day Years Used Date Smoking Tobacco: Never Smokeless Tobacco: Never Alcohol Use Standard Drinks/Week Comments Yes 0 (1 standard drink = 0.6 oz pur e alcohol) 2-3 /month if that PHQ-2 Answer Date Recorded PHQ Adult Total Score 0 11/02/2023 Hunger Vital Sign Answer Date Recorded Within the past 12 months, y ou worried that your food would run out before you got the money to buy more. Never true 04/17/20 24 Within the past 12 months, t he food you bought just didn't last and you didn't have money to get more. Never true 04/17/2024 Childcare Answer Date Recorded Do you feel overwhelmed with taking care of a child, family member or friend? No 04/17/2024 Does your family need help f inding childcare? (Household - for ages 0-17 years) Not on file 04/17/2024 Clothing Answer Date Recorded Have you been unable to get clothing when it was really needed? No 04/17/2024 Is your family able to get c lothes or diapers when needed? (Household - for ages 0-17 years) Not on file 04/17/2024 Personal Safety Answer Date Recorded Do you feel unsafe or have concerns for your saf ety? No 04/17/2024 Do you have concerns for you r family's safety? (Household - for ages 0-17 years) Not on file 04/17/2024 Utilities Answer Date Recorded Do you have trouble paying y our heating, water, or electric bill? No 04/17/2024 Is your family able to pay t he heat, water, or electric bill? (Household - for ages 0-17 years) Not on file 04/17/2024 Does your family have access to good internet? (Household - for ages 0-17 years) Not on file 04/17/2024 Employment Status Answer Date Recorded Are you unemployed or without regular income? No 04/17/2024 Does the household have a [facility] source of income? (Household - for ages 0-17 years) Not on file 04/17/2024 Social Connections Answer Date Recorded How often do you feel lonely or isolated from th ose around you? Never 04/17/2024 Financial Resource Strain Answer Date R ecorded Do you have any trouble payi ng for your medications, or do you think you might in the future? No 04/17/2024 Does your family have troubl e paying for medicine? (Household - for ages 0-17 years) Not on file 04/17/2024 Transportation Needs Answer Date Record ed Do you have trouble getting a ride to medical visits or work? (Adult - for ages 18 years and over) Not on file 04/17/2024 Does your family have a hard time getting a ride to doctors visits? (Household - for ages 0-17 years) Not on file 04/17/2024 Has lack of transportation k ept you from medical appointments, meetings, work, or from getting things needed for daily living? Check all that apply. No 04/17/2024 Do you (or your family) have trouble finding or paying for a ride (transportation)? (Household - for ages 0-17 years) Not on file 04/17/2024 Housing Stability Answer Date Recorded Do you currently live in a s helter or have no steady place to sleep at night? No 04/17/2024 Do you think you are at risk of becoming homeless? (Adult - for ages 18 years and over) Not on file 04/17/2024 Does your family worry about paying for your home or becoming homeless? (Household - for ages 0-17 years) Not on file 1 Are you homeless or worried that you might be in the future? No 04/17/2024 Are you (or your family) srinath eless or worried that you might be in the future? (Household - for ages 0-17 years) Not on file Food Insecurity Answer Date Recorded Do you need food for this week? No 04/17/2024 Are you able to get enough f ood for your family? (Household - for ages 0-17 years) Not on file 04/17/2024 Does your family need food t his week? (Household - for ages 0-17 years) Not on file 04/17/2024 Do you always have enough fo od for your family? (Household - for ages 0-17 years) Not on file 04/17/2024 Comments No Sex and Gender Information Value Date Recorded Sex Assigned at Female 07/26/2020 9:08 AM EST Legal Sex Female 5:56 AM EST Gender Identity Female 07/26/2020 9:08 AM EST Sexual Orientation Straight 07/26/2020 9: 08 AM EST Occupation Industry Job Start Date Job End Date retired Not on file Not on file [facility] Not on file Not on file Not on file documented as of this encounter Miscellaneous Notes * Telephone Encounter - Jamie Del Castillo MD - 07/04/2024 2:49 PM EST I sent patient a [employer] message but in case she has not checked it can you please call her with the below message: Myranda - Your CT report is back and you do indeed have some pancreatitis at the tail of your pancreas. This is from the biopsy. It is mild and should resolve in a week or so. Please take the pain medication and anti-nausea meds and let me know if things worsen (or call the compliance professional team over the weekend). Your labs looked fine - with no elevated white count (the lipase level is still pending but id expect it to be mildly elevated). documented in this encounter Plan of Treatment Upcoming Encounters Date Type Department Care Team (Late st Contact Info) Description 08/13/2024 10:30 AM EST Office Visit Gastroenterology, [facility] [address] [address] Jenni Simons CRNP [address] [place] [address] 11/13/2024 10:00 AM EDT Office Visit Family Practice [facility] [address] [place] [address] Carl Field MD [address] [place] [address] 06/05/2025 10:00 AM EST Imaging Radiology [facility] [address] [place] [phone] Health Maintenance Due Date Last Done Comments Adult Wellness Visit 09/10/2015 09/09/2014 FOBT ANNUALLY,AGES 18-90 08/23/2023 023, 09/07/2021, 07/26/2020, Additional history exists HbA1c 10/27/2024 04/29/2024, 10/16, 01/23/2023, Additional history exists Albumin/Creatinine Ratio 10/29/2024 024, 08/09/2022, 08/09/2021 Depression Screening 11/01/2024 11/02/2023 Diabetic Foot Exam 11/01/2024 11/02/2023, 0 02/03/2022, 12/24/2017 GFR 01/01/2025 07/04/2024, 04/18, 10/30/2023, Additional history exists CKD PHOS USE SMARTSET 51767 04/29/202504/18, 04/29/2024, 08/04/2022 Diabetic Eye Exam 05/01/2025 05/01/2024, 07/25/2022 Mammogram 06/04/2025 06/04/2024, 05/18, 04/27/2022, Additional history exists CKD HGB USE SMARTSET 24746 07/04/202507/04, 07/04/2024, 12/20/2022, Additional history exists DXA Scan 01/10/2029 01/10/2022, 07/19, 07/28/2013, Additional history exists DTap/Tdap Vaccines (3 - Td or Tdap) 08/03/2031 08/03/2021, 06/30/2011, 11/26/1997 Colonoscopy Discontinued 12/30/2008, 11/2004, 05/27/2002 Pneumococcal Vaccine: 50+ Years Completed 03/29/2016, 02/28/2015, 02/17/2011, Additional history exists Zoster Vaccines Completed 04/30/2019, 03/18, 02/11/2019, Additional history exists Fecal Occult Blood Test Discontinued 08/23/19, 09/07/2021, 07/26/2020, Additional history exists COVID-19 Vaccine Discontinued 04/02/2023, , 05/05/2021, Additional history exists Influenza Vaccine (FLU shot) Completed 05/01/2024, 03/27/2023, 04/12/2022, Additional history exists HPV (Gardasil) Vaccine Aged Out No lo nger eligible based on patient's age to complete this topic Hepatitis B Vaccine Aged Out No longe r eligible based on patient's age to complete this topic MENINGOCOCCAL (MENACTRA/MENVEO) Aged Out No longer eligible based on patient's age to complete this topic documented as of this encounter Medical Devices Implanted Type Area Sales Support Associate Device Identifier Shelf Expiration Date Model / Serial / Lot Hemostatic Clip Res 235cm - [id number] Implanted:Qty: 4 on 04/12/2023 by Amalia Vance MD at ENDOSCOPY [facility] : ENDOSCOPY 02/05/2026 [id number] / / documented as of this encounter Care Teams Salon Assistant Relationship Specialty Start Date End Date Bhavna Barron CRNP [address] [place] [address] PCP - General Nurse Practitioner 06/25/24 documented as of this encounter
--- OUTSIDE RECORDS SUMMARY | 2024-07-18 14:15 | External Medical Summary | Summary of Care ---
Author Name Unknown Organization [facility] Address [address] [facility] [place] [address] Phone [phone] Care Team Providers Care Rn Internship Name Role Phone Anderson Harshadmerrick JULIUS Primary Care Provider [phone] Reason for Visit * Reason Onset Date Comments Test Results 07/04/2024 Encounter Details Date Type Department Care Team (Late st Contact Info) Description 07/04/2024 Telephone Family Practice [facility] [address] [place] [address] Jamie Del Castillo MD [address] [place] [id number] Test Results Allergies Active Allergy Reactions Criticality Noted Date Comments Alex Inhibitors Cough 11/25/2015 Barium Sulfate 12/14/2008 Secondary bowel obstruction following barium swallow Ciprofloxacin 08/30/2018 Tendon pain/weakness x2 Morphine And Codeine 07/22/1997 sleepy documented as of this encounter (statuses as of 07/07/2024) Medications CALCIUM + D 600-200 MG-UNIT PO [...] 10 mL IV PUSH ONCE 07/04/2024 07/05/2024 Ended documented as of this encounter (statuses as of 07/07/2024) Active Problems Problem Noted Date Diagnosed Date Erythema migrans (Lyme disease) 12/20/2022 Malaise and fatigue 12/20/2022 Coronary artery disease invo lving [place] coronary artery of [place] heart without angina pectoris 08/03/2021 Chronic kidney disease, stage 3a 02/28/2021 Overview: Per CKD protocol [place] (myocardial infarction) 01/28/2021 Gastric dysmotility 07/26/2020 History [...] Scan. 06/06 EGD , dilated. Swallow study. [facility] Board. 08/2019 FOB/FIT WNL 06/06 EGD [...] as of this encounter (statuses as of 07/07/2024) Resolved Problems Problem Noted Date Diagnosed Date [...] as of this encounter (statuses as of 07/07/2024) Immunizations Name Administration Dates Next Due COVID-19 mRNA, LNP-s, No Pre serve, 2-Dose Series ([employer]) 05/05/2021,08/02/2020,07/12/2020 COVID-19, MRNA-LNP, PF, 30 M CG/0.3 mL, 12 YRS AND ABOVE, IM ([facility]) 04/02/2023 Covid-19, Mrna, Lnp-s, Pf, B ivalent, 30 Mcg, IM, 12 yrs and above ([employer]) 04/13/2022 Diptheria/Tetanus (Adult) 11/26/1997 PPD 06/25/2006 Pneumococcal Conjugate Vacc, 13 Valent (Prevnar) 02/28/2015 Pneumococcal Polysaccharide PPV23 (Pneumovax) 03/29/2016,02/17/2011,04/01/2006,03/18 Season Influenza, Quad, PF, Adjuvanted, 65+ Yrs, IM (FLUAD) 04/13/2020 Seasonal Influenza Vac., MDV , IM, 0.5 mL (Fluzone) 02/28/2015,04/18/2014,03/24/2013,04/17,02/17/2011,03/22/2010,03/22/2009 ,03/18/2008,05/07/2007,04/01/2006,03/19,04/27/2004,03/24/2003 Seasonal Influenza, High Dos e, Trivalent, PF, [...] No 04/17/2024 Does the household have a re lar source of income? (Household - for ages [...] file Not on file Not on file [facility] board. Not on file Not on file Not on file documented as of this encounter Miscellaneous Notes * Telephone Encounter - Pamela Rodriguez LPN - 07/07/2024 8:53 AM EST Pt read myg message. * Telephone Encounter - Jamie Del Castillo MD - 07/04/2024 2:49 PM EST I sent patient a [employer] message but in case she has not [...] know if things worsen (or call the higher education administrator team over the weekend). Your labs looked fine - with no elevated white count (the lipase level is still pending but id expect it to be mildly elevated). documented in this encounter Plan of Treatment Upcoming Encounters Date Type Department Care Team (Late st Contact Info) Description 08/13/2024 10:30 AM EST Office Visit Gastroenterology, [facility] [address] [address] Jenni Simons CRNP [address] [address] 11/13/2024 10:00 AM EDT Office Visit Family Practice [facility] [address] [address] Carl Field MD [address] [place] [address] 06/05/2025 10:00 AM EST Imaging Radiology [address] [place] [phone] Health Maintenance Due Date Last Done Comments Adult Wellness Visit 09/10/2015 09/09/2014 FOBT ANNUALLY,AGES 18-90 08/23/2023 023, 09/07/2021, 07/26/2020, Additional history exists HbA1c 10/27/2024 04/29/2024, 10/16, 01/23/2023, Additional history exists Albumin/Creatinine Ratio 10/29/2024 024, 08/09/2022, 08/09/2021 Depression Screening 11/01/2024 11/02/2023 Diabetic Foot Exam 11/01/2024 11/02/2023, 0 02/03/2022, 12/24/2017 GFR 01/01/2025 07/04/2024, 04/18, 10/30/2023, Additional history exists CKD PHOS USE SMARTSET 80594 04/29/202504/18, 04/29/2024, 08/04/2022 Diabetic Eye Exam 05/01/2025 05/01/2024, 07/25/2022 Mammogram 06/04/2025 06/04/2024, 05/18, 04/27/2022, Additional history exists CKD HGB USE SMARTSET 68463 07/04/202507/04, 07/04/2024, 12/20/2022, Additional history exists DXA Scan 01/10/2029 01/10/2022, 07/19, 07/28/2013, Additional history exists DTap/Tdap Vaccines (3 - Td or Tdap) 08/03/2031 08/03/2021, 06/30/2011, 11/26/1997 Colonoscopy Discontinued 12/30/2008, 11/2004, 05/27/2002 Pneumococcal Vaccine: 50+ Years Completed 03/29/2016, 02/28/2015, 02/17/2011, Additional history exists Zoster Vaccines Completed 04/30/2019, 03/18, 02/11/2019, Additional history exists Fecal Occult Blood Test Discontinued 08/23/19 23, 09/07/2021, 07/26/2020, Additional history exists COVID-19 Vaccine [...] this encounter Medical Devices Implanted Type Area Sewing Machine Operator Semiautomatic Device Identifier Shelf Expiration Date Model / Serial / Lot Hemostatic Clip Res 235cm - [id number] Implanted:Qty: 4 on 04/12/2023 by Amalia Vance MD at ENDOSCOPY [facility] : ENDOSCOPY 02/05/2026 [id number] / / documented as of this encounter Care Teams Rn Internship Relationship Specialty Start Date End Date Bhavna Barron CRNP [address] [place] [address] PCP - General Nurse Practitioner 06/25/24 documented as of this encounter
--- OUTSIDE RECORDS SUMMARY | 2024-07-18 14:15 | External Medical Summary | Summary of Care ---
Author Name Unknown Organization [facility] Address [address] [facility] [place] [address] Phone [phone] Care Team Providers Care Polls Or Surveys Interviewer Name Role Phone Bhavna Barron Primary Care Provider [phone] Reason for Visit * Reason Comments Outpatient Testing Encounter Details Date Type Department Care Team (Late st Contact Info) Description 07/04/2024 1:10 PM EST Laboratory Laboratory, [facility] [address] [facility] [place] [id number] [facility] [address] Acute epigastric pain; Abdominal pain with radiation to back; History of pancreatitis Allergies Active Allergy Reactions Criticality Noted Date [...] needed for Nausea. 20 Tablet 5 Active documented as of this encounter (statuses as of 07/04/2024) Active Problems Problem Noted Date Diagnosed Date Erythema migrans (Lyme disease) 12/20/2022 Malaise and fatigue 12/20/2022 Coronary artery disease invo lving [place] coronary artery of [place] heart without angina pectoris 08/03/2021 Chronic kidney disease, stage 3a 02/28/2021 Overview: Per CKD protocol Old [place] (myocardial infarction) 01/28/2021 Gastric dysmotility 07/26/2020 History [...] Scan. 06/06 EGD , dilated. Swallow study. [facility] Board. 08/2019 FOB/FIT WNL 06/06 EGD hyperplastic [...] mRNA, LNP-s, No Pre serve, 2-Dose Series ([employer]) 05/05/2021,08/02/2020,07/12/2020 COVID-19, MRNA-LNP, PF, 30 M CG/0.3 mL, 12 YRS AND ABOVE, IM ([facility]) 04/02/2023 Covid-19, Mrna, Lnp-s, Pf, B ivalent, 30 Mcg, IM, 12 yrs and above ([employer]) 04/13/2022 PPD 06/25/2006 Pneumococcal Conjugate Vacc, 13 [...] Not on file Not on file president Count includes the [facility]. Not on file Not on file Not on file documented as of this encounter Plan of Treatment Upcoming Encounters Date Type Department Care Team (Late st Contact Info) Description 07/04/2024 2:15 PM EST Imaging Radiology [facility] 1st Floor, [place] [address] [place] [phone] Arrived 08/13/2024 10:30 AM EST Office Visit Gastroenterology, [facility] [address] [place] [address] Jenni Simons CRNP [address] [place] [address] 11/13/2024 10:00 AM EDT Office Visit Family Practice [facility] [address] [place] [phone] Carl Field MD [address] [place] [phone] 06/05/2025 10:00 AM EST Imaging Radiology [address] [place] [phone] Pending Results Name Type Priority Associated Diagnoses Date /Time LIPASE Lab STAT Acute epigastric pain Abdominal pain with radiation to back 07/04/2024 1:13 PM EST COMPREHENSIVE METABOLIC PANEL Lab STAT Acute epigastric pain Abdominal pain with radiation to back 07/04/2024 1:13 PM EST Health Maintenance Due Date Last Done Comments Adult Wellness Visit 09/10/2015 09/09/2014 FOBT ANNUALLY,AGES 18-90 08/23/2023 023, 09/07/2021, 07/26/2020, Additional history exists GFR 10/27/2024 04/29/2024, 10/16, 12/20/2022, Additional history exists HbA1c 10/27/2024 04/29/2024, 10/16, 01/23/2023, Additional history exists Albumin/Creatinine Ratio 10/29/2024 024, 08/09/2022, 08/09/2021 Depression Screening 11/01/2024 11/02/2023 Diabetic Foot Exam 11/01/2024 11/02/2023, 0 02/03/2022, 12/24/2017 CKD PHOS USE SMARTSET 36941 04/29/202504/18, 04/29/2024, 08/04/2022 Diabetic Eye Exam 05/01/2025 05/01/2024, 07/25/2022 Mammogram 06/04/2025 06/04/2024, 05/18, 04/27/2022, Additional history exists CKD HGB USE SMARTSET 18637 07/04/202507/04, 07/04/2024, 12/20/2022, Additional history exists DXA Scan 01/10/2029 01/10/2022, 07/19, 07/28/2013, Additional history exists DTap/Tdap Vaccines (3 - Td or Tdap) 08/03/2031 08/03/2021, 06/30/2011, 11/26/1997 Colonoscopy Discontinued 12/30/2008, 1211/2004, 05/27/2002 Pneumococcal Vaccine: 50+ Years Completed 03/29/2016, [...] this encounter Medical Devices Implanted Type Area Bridge Crane Operator Device Identifier Shelf Expiration Date Model / Serial / Lot Hemostatic Clip Res 235cm - [id number] Implanted:Qty: 4 on 04/12/2023 by Amalia Vance MD at ENDOSCOPY [facility] : ENDOSCOPY 02/05/2026 [id number] / / documented as of this encounter Procedures Procedure Name Priority Date/Time Associated Diagnosis Comments DIFFERENTIAL, AUTOMATED STAT 07/04/2024 1:13 PM EST Acute epigastric pain Abdominal pain with radiation to back CBC STAT 07/04/2024 1:13 PM EST Acute epigastric pain Abdominal pain with radiation to back CBC STAT 07/04/2024 1:13 PM EST Acute epigastric pain Abdominal pain with radiation to back documented in this encounter Results * DIFFERENTIAL, AUTOMATED (07/04/2024 1:13 PM EST) WBC 7.26 4.00 - 10.80 K/uL 07/04/2024 1:23 PM EST [facility] [place] [facility] Neutrophils % 69.3 40.0 - 75.0 % 07/04/2024 1:23 PM EST [facility] [place] [facility] Lymphocytes % 18.6 18.0 - 42.0 % 07/04/2024 1:23 PM EST [facility] [place] [facility] Monocytes % 9.2 1.0 - 11.0 % 07/04/2024 1:23 PM EST [facility] [place] [facility] Eosinophils % 2.8 0.0 - 6.0 % 07/04/2024 1:23 PM EST [facility] [place] [facility] Basophils % 0.1 0.0 - 2.0 % 07/04/2024 1:23 PM EST [facility] [place] [facility] Absolute Neutrophils 5.03 1.80 - 7.70 K/uL 07/04/2024 1:23 PM EST [facility] [place] [facility] Absolute Lymphocytes 1.35 1.00 - 4.80 K/ul 07/04/2024 1:23 PM EST [facility] [place] [facility] Absolute Monocytes 0.67 0.00 - 1.10 K/uL 07/04/2024 1:23 PM EST [facility] [place] [facility] Absolute Eosinophils 0.20 0.00 - 0.70 K/uL 07/04/2024 1:23 PM EST [facility] [place] [facility] Absolute Basophils 0.01 0.00 - 0.20 K/uL 07/04/2024 1:23 PM EST [facility] [place] [facility] Blood Venous blood specimen / Unknown Venipuncture / Unknown 07/04/2024 1:13 PM EST 07/04/2024 1:13 PM EST us Jamie Del Castillo MD LAB BLOOD ORDERABLES F inal Result [facility] [place] [facility] [address] [facility] [place] [id number] * CBC (07/04/2024 1:13 PM EST) WBC 7.26 4.00 - 10.80 K/uL 07/04/2024 1:23 PM EST [facility] [place] [facility] RBC 4.32 3.85 - 5.15 M/uL 07/04/2024 1:23 PM EST [facility] [place] [facility] HGB 14.0 12.0 - 15.3 g/dL 07/04/2024 1:23 PM EST [facility] [place] [facility] HCT 41.9 36.0 - 45.2 % 07/04/2024 1:23 PM EST [facility] [place] [facility] MCV 97.0 81.5 - 97.5 fL 07/04/2024 1:23 PM EST [facility] [place] [facility] MCH 32.4 27.0 - 34.0 pg 07/04/2024 1:23 PM EST [facility] [place] [facility] MCHC 33.4 32.0 - 36.0 g/dL 07/04/2024 1:23 PM EST [facility] [place] [facility] RDW 11.9 11.5 - 15.5 % 07/04/2024 1:23 PM EST [facility] [place] [facility] PLT 168 140 - 400 K/uL 07/04/2024 1:23 PM EST [facility] [place] [facility] MPV 9.6 6.6 - 11.1 fL 07/04/2024 1:23 PM EST [facility] [place] [facility] Blood Venous blood specimen / Unknown Venipuncture / Unknown 07/04/2024 1:13 PM EST 07/04/2024 1:13 PM EST us Jamie Del Castillo MD LAB BLOOD ORDERABLES F inal Result [facility] [place] [facility] [address] [facility] [place] [id number] documented in this encounter Visit Diagnoses Diagnosis Acute epigastric pain Abdominal pain, epigastric Abdominal pain with radiation to back History of pancreatitis Personal history of other diseases of digestive system Screening mammogram for breast cancer documented in this encounter Care Teams Polls Or Surveys Interviewer Relationship Specialty Start Date End Date Bhavna Barron CRNP [address] [place] [address] PCP - General Nurse Practitioner 06/25/24 documented as of this encounter
--- OUTSIDE RECORDS SUMMARY | 2024-07-18 14:16 | External Medical Summary | Summary of Care ---
Author Name Unknown Organization [facility] Address [address] [facility] [place] [address] Phone [phone] Care Team Providers Care Trade Clerk Name Role Phone Bhavna Barron Primary Care Provider Reason for Referral * Precert (Within 24 hrs (call dept; emergent)) - Authorized Specialty Diagnoses / Procedures Referred By Contac t Referred To Contact Radiology Diagnoses Acute epigastric pain Abdominal pain with radiation to back History of pancreatitis Procedures CT ABD/PELVIS W IV CONTRAST - WO ORAL CONTRAST Jamie Del Castillo MD [address] [place] [address] Phone: tel: fax: Referral ID Status Reason Start Date Expiration Date V isits Requested Visits Authorized [id number] Authorized 07/04/2024 999 999 Reason for Visit * Reason Comments Acute Pt here for c/o left sided abdominal pain that wraps around to back. Pt denies any trauma to the area. Pt had an endoscopy on Sunday not sure if related. Pt states that it is painful to take a deep breath Encounter Details Date Type Department Care Team (Late st Contact Info) Description 07/04/2024 11:40 AM EST Office Visit [facility] [address] [place] [phone] Jamie Del Castillo MD [address] [place] [address] Acute epigastric pain*; Abdominal pain with radiation to back; History of pancreatitis; Severe obesity with body mass index (BMI) of 35.0 to 39.9 with serious comorbidity (HCC); Type 2 diabetes mellitus with hemoglobin A1c goal of less than 8.0% ([facility]); Chronic kidney disease, stage 3a ([facility]) Allergies Active Allergy Reactions Criticality Noted Date [...] BY MOUTH EVERY DAY 90 Tablet 3 08/07/19 24 Active Additional Information Patient taking differently: TAKE 1 TABLET BY MOUTH EVERY DAY-in evening, Reported on 07/04/2024 Clobetasol Propionate 0.05 % External Cream (Temovate)Indica tions:Lichenific ation,Eczema, unspecified type Apply thin layer topically to affected area twice daily as needed. 60 g 1 08/16/19 24 Active Verapamil HCl ER 240 MG Oral Tablet Extended Release (Isoptin SR) TAKE 1.5 TABLETS BY MOUTH IN THE MORNING 135 Tablet 1 02/14/20 24 Active Losartan Potassium 100 MG Oral Tablet (Cozaar)Indicati ons:Essential hypertension with goal blood pressure less than 140/90 TAKE 1 TABLET BY MOUTH EVERY DAY 90 Tablet 3 02/19/20 24 Active tiZANidine HCl 4 MG Oral CapsuleIndicatio ns:Cervicalgia TAKE 1 CAPSULE BY MOUTH EVERY DAY NEEDED FOR MUSCLE SPASMS 90 Capsule 1 04/11/20 24 Active Pantoprazole Sodium 40 MG Oral Tablet Delayed Release (Protonix)Indica tions:Gastroesop hageal reflux disease with esophagitis without hemorrhage Take 1 Tablet by mouth in the morning. 180 Tablet 3 05/01/20 24 Active Metoprolol Succinate ER 50 MG Oral Tablet Extended Release 24 Hour (toPROL XL)Indications:E ssential hypertension with goal blood pressure less than 140/90 TAKE 1 TABLET BY MOUTH EVERY DAY 90 Tablet 3 05/16/20 24 Active HYDROcodone-Acet aminophen 5-325 MG Oral Tablet Take 1 Tablet by mouth every 8 hours as needed for Pain, Mild or Pain, Breakthrough. 12 Tablet 07/04/19 25 Active Ondansetron HCl 4 MG Oral Tablet Take 1 Tablet by mouth every 8 hours as needed for Nausea. 20 Tablet 07/04/19 25 Active LORazepam 1 MG Oral Tablet (Ativan) Take 1 Tablet by mouth as needed for Anxiety or Other (1 tab 1 hour before MRI repeat if needed.). 2 Tablet 01/15/20 24 025 Discontin ued(Medic ation List Clean Up) Lubiprostone 24 MCG Oral Capsule (Amitiza) Take 1 Capsule by mouth 2 times a day with morning and evening meals. 60 Capsule 3 02/06/20 24 025 Discontin ued(Medic ation List Clean Up) documented as of this encounter (statuses as of 07/04/2024) Active Problems Problem Noted Date Diagnosed Date Erythema migrans (Lyme disease) 12/20/2022 Malaise and fatigue 12/20/2022 Coronary artery disease invo lving [place] coronary artery of [place] heart without angina pectoris 08/03/2021 Chronic kidney disease, stage 3a 02/28/2021 Overview: Per CKD protocol Old [place] (myocardial infarction) 01/28/2021 Gastric dysmotility 07/26/2020 History [...] Scan. 06/06 EGD , dilated. Swallow study. [facility] Board. 08/2019 FOB/FIT WNL 06/06 EGD hyperplastic [...] mRNA, LNP-s, No Pre serve, 2-Dose Series ([employer]) 05/05/2021,08/02/2020,07/12/2020 COVID-19, MRNA-LNP, PF, 30 M CG/0.3 mL, 12 YRS AND ABOVE, IM ([facility]) 04/02/2023 Covid-19, Mrna, Lnp-s, Pf, B ivalent, 30 Mcg, IM, 12 yrs and above ([employer]) 04/13/2022 PPD 06/25/2006 Pneumococcal Conjugate Vacc, 13 [...] Date Smoking Tobacco: Never Smokeless Tobacco: Never Tobacco Cessation:Counseling Given: Not Answered Alcohol Use Standard Drinks/Week Comments Yes 0 [...] 04/17/2024 Does the household have a re gular source of income? (Household - for ages [...] Not on file Not on file president [facility] board. Not on file Not on file Not on file documented as of this encounter Last Filed Vital Signs Vital Sign Reading Time Taken Comments Blood Pressure 160/90 07/04/2024 12:05 PM EST Pulse 81 07/04/2024 12:05 PM EST Temperature 36.6 C (97.9 F) 07/04/2024 12:[address] Respiratory Rate 16 07/04/2024 12:05 PM EST Oxygen Saturation 95% 07/04/2024 12:05 PM EST Inhaled Oxygen Concentration - - Weight 97.1 kg (214 lb) 07/04/2024 12:05 PM EST Height 160 cm (5' 2.99") 07/04/2024 12:05 PM EST Body Mass Index 37.92 07/04/2024 12:05 PM EST documented in this encounter Progress Notes * Jamie Del Castillo MD - 07/04/2024 12:44 PM EST Images from the original note were not included. History of Present Illness Myranda Duran is a 79 year old female that presents for Acute (Pt here for c/o left sided abdominalpain that wraps around to back. Pt denies any trauma to the area. Pt had an endoscopy on Sunday notsure if related. 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 A few days after procedure she had a loose bowel movement but has had no BM since. She trypically has bowel movements daily. She has not had much appetite at all. She is drinking fluids ok. She does have some pain that is worse with positioning. Most of the pain is upper abdominal, more on the left side and radiating through and around to her back. No vomiting. Physical Exam BP 160/90 (BP Site: Left Arm, BP Position: Sitting, BP Cuff Size: Regular) | Pulse 81 | Temp 97.9 F (36.6 C) (Tympanic) | Resp 16 | Ht 5' 2.99" (1.6 m) | Wt 214 lb (97.1 kg) | SpO2 95% | BMI 37.92 kg/m | BSA 2.08 m AAOx3 Mild ill appearing Uncomfortable appearance in setting, slow to stand from seated position NCAT/ PERRL Neck supple Throat clear RRR Lungs CTABL Abdomen soft with bloating + tenderness in epigastrium and in left upper quadrant Ext warm and well perfused No gross neuro deficits I have reviewed most recent labs None Assessment and Plan Acute epigastric pain - - LIPASE; Future - COMPREHENSIVE METABOLIC PANEL; Future - CBC WITH WBC DIFFERENTIAL; Future - CT ABD/PELVIS W IV CONTRAST - WO ORAL CONTRAST - CREATININE; Future Abdominal pain with radiation to back - - LIPASE; Future - COMPREHENSIVE METABOLIC PANEL; Future - CBC WITH WBC DIFFERENTIAL; Future - CT ABD/PELVIS W IV CONTRAST - WO ORAL CONTRAST - CREATININE; Future History of pancreatitis - remote hx of gallstone pancreatitis s/o leah - this feels quite similar - CT ABD/PELVIS W IV CONTRAST - WO ORAL CONTRAST - CREATININE; Future Severe obesity with body mass index (BMI) of 35.0 to 39.9 with serious comorbidity (HCC) - same Type 2 diabetes mellitus with hemoglobin A1c goal of less than 8.0% (HCC) - RF for pancreatitis Chronic kidney disease, stage 3a (HCC) - check renal function prior to CT with contrast. Labs - lipase, CMP, CBC w/ diff CT of A/P w/ IV contrast Pain control - hydrocodone Anti-emetics Liquid diet over weekend Await results I will communicate with other staff/special education assistant doc tonight If she develops fever or cannot tolerate PO should present to hospital Wrap-Up Tbd based on results Time: I spent a total of 30-39 minutes (exact time 35 mins) on the date of service in preparation, delivery, and documentation of the care provided to Myranda Duran excluding any time spent in the performance of separately billed services. documented in this encounter Plan of Treatment Upcoming Encounters Date Type Department Care Team (Late st Contact Info) Description 08/13/2024 10:30 AM EST Office Visit Gastroenterology, [facility] [address] [place] [phone] Jenni Simons CRNP [address] [place] [address] 11/13/2024 10:00 AM EDT Office Visit Family Practice [facility] [address] [place] [address] Carl Field MD [address] [place] [address] 06/05/2025 10:00 AM EST Imaging Radiology [facility] 1st Floor, [place] [address] [place] [phone] Pending Results Name Type Priority Associated Diagnoses Date /Time LIPASE Lab STAT Acute epigastric pain Abdominal pain with radiation to back 07/04/2024 1:13 PM EST COMPREHENSIVE METABOLIC PANEL Lab STAT Acute epigastric pain Abdominal pain with radiation to back 07/04/2024 1:13 PM EST CBC WITH WBC DIFFERENTIAL Lab STAT Acute epigastric pain Abdominal pain with radiation to back 07/04/2024 1:13 PM EST Scheduled Orders Name Type Priority Associated Diagnoses Orde r Schedule LIPASE Lab STAT Acute epigastric pain Abdominal pain with radiation to back Expected: 07/04/2024 (Approximate), Expires: 07/04/2025 COMPREHENSIVE METABOLIC PANEL Lab STAT Acute epigastric pain Abdominal pain with radiation to back Expected: 07/04/2024 (Approximate), Expires: 07/04/2025 CBC WITH WBC DIFFERENTIAL Lab STAT Acute epigastric pain Abdominal pain with radiation to back Expected: 07/04/2024 (Approximate), Expires: 07/04/2025 CT ABD/PELVIS W IV CONTRAST - WO ORAL CONTRAST Medical Imaging STAT Acute epigastric pain Abdominal pain with radiation to back History of pancreatitis Ordered: 07/04/2024 Health Maintenance Due Date Last Done Comments Adult Wellness Visit 09/10/2015 09/09/2014 FOBT ANNUALLY,AGES 18-90 08/23/2023 023, 09/07/2021, 07/26/2020, Additional history exists CKD HGB USE SMARTSET 63308 12/21/202312/20, 12/20/2022, 08/04/2022, Additional history exists GFR 10/27/2024 04/29/2024, 10/16, 12/20/2022, Additional history exists HbA1c 10/27/2024 04/29/2024, 10/16, 01/23/2023, Additional history exists Albumin/Creatinine Ratio 10/29/2024 024, 08/09/2022, 08/09/2021 Depression Screening 11/01/2024 11/02/2023 Diabetic Foot Exam 11/01/2024 11/02/2023, 0 02/03/2022, 12/24/2017 CKD PHOS USE SMARTSET 65905 04/29/202504/18, 04/29/2024, 08/04/2022 Diabetic Eye Exam 05/01/2025 05/01/2024, 07/25/2022 Mammogram 06/04/2025 06/04/2024, 05/18, 04/27/2022, Additional history exists DXA Scan 01/10/2029 01/10/2022, 07/19, 07/28/2013, Additional history exists DTap/Tdap Vaccines (3 - Td or Tdap) 08/03/2031 08/03/2021, 06/30/2011, 11/26/1997 Colonoscopy Discontinued 12/30/2008, 12/11/2004, 05/27/2002 Pneumococcal Vaccine: 50+ Years Completed 03/29/2016, [...] this encounter Medical Devices Implanted Type Area Plant Senior Manager Device Identifier Shelf Expiration Date Model / Serial / Lot Hemostatic Clip Res 235cm - [id number] Implanted:Qty: 4 on 04/12/2023 by Amalia Vance MD at ENDOSCOPY [facility] : ENDOSCOPY 02/05/2026 [id number] / / documented as of this encounter Visit Diagnoses Diagnosis Acute epigastric pain- Primary Abdominal pain, epigastric Abdominal pain with radiation to back History of pancreatitis Personal history of other diseases of digestive system Severe obesity with body mass index (BMI) of 35.0 to 39.9 with serious comorbidity (HCC) Type 2 diabetes mellitus with hemoglobin A1c goal of less than 8.0% (HCC) Chronic kidney disease, stage 3a (HCC) Screening mammogram for breast cancer documented in this encounter Care Teams Trade Clerk Relationship Specialty Start Date End Date Bhavna Barron CRNP [address] [place] [address] PCP - General Nurse Practitioner 06/25/24 documented as of this encounter
--- OUTSIDE RECORDS SUMMARY | 2024-07-18 14:16 | External Medical Summary ---
Author Name Unknown Address Unknown Organization [id number] [address] [place] [address] Laboratory Report Ordering Provider Test Date Status IHSAN SILVA 07/04/2024 13:13:50 Final Observation Date Value Abnormality Reference (Units ) Status WBC, Total 07/04/2024 13:13:50 7.26 4.00-10.8 0 (K/uL) Final RBC 07/04/2024 13:13:50 4.32 3.85-5.15 (M/uL) Final Hemoglobin 07/04/2024 13:13:50 14.0 12.0-15.3 (g/dL) Final HCT 07/04/2024 13:13:50 41.9 36.0-45.2 (%) Final MCV 07/04/2024 13:13:50 97.0 81.5-97.5 (fL) Final MCH 07/04/2024 13:13:50 32.4 27.0-34.0 (pg) Final MCHC 07/04/2024 13:13:50 33.4 32.0-36.0 (g/dL) Final RDW 07/04/2024 13:13:50 11.9 11.5-15.5 (%) Final Platelets 07/04/2024 13:13:50 168 140-400 (K /uL) Final MPV 07/04/2024 13:13:50 9.6 6.6-11.1 ( fL) Final Performing Location [facility] [address] [place] [address]
--- OUTSIDE RECORDS SUMMARY | 2024-07-18 14:16 | External Medical Summary | Summary of Care ---
Author Name Unknown Organization [facility] Address [address] [facility] [place] [address] Phone [phone] Care Team Providers Care Warper Tender Name Role Phone Bhavna Barron Primary Care Provider [phone] Reason for Visit * Auth/Cert Specialty Diagnoses / Procedures Referred By Haley ochoa Referred To Contact Diagnoses Gastric polyps Intestinal metaplasia of stomach Gastric polyps [K31.7] Intestinal metaplasia of stomach [K31.A0] Procedures EGD, W/ENDOSCOPIC US EGD, FLEXIBLE, DIAGNOSTIC ESOPHAGOGASTRODUODENOSCOPY (EGD), FLEXIBLE, TRANSORAL, ENDOSCOPIC ULTRASOUND ESOPHAGOGASTRODUODENOSCOPY (EGD), FLEXIBLE, TRANSORAL, DIAGNOSTIC Amalia Vance MD [address] [facility] [place] [address] Phone: tel: fax: ENDO [facility], Endoscopy Room OSS [address] [facility] [place] [address] Phone: tel: Referral ID Status Reason Start Date Expiration Date Visits Re quested Visits Authorized [id number] Encounter Details Date Type Department Care Team (Latest Contact Info) Description 06/30/2024 9:08 AM EST - 06/30/2024 11:04 AM EST Hospital Encounter ENDO [facility], Endoscopy Room [facility] [address] [facility] [place] [phone] Amalia Vance MD [address] [facility] [place] [address] Upper Endoscopic US Discharge Disposition: Home - Self Care Allergies Active Allergy Reactions Criticality Noted Date Comments Alex Inhibitors Cough 11/25/2015 Barium Sulfate 12/14/2008 Secondary bowel obstruction following barium swallow Ciprofloxacin 08/30/2018 Tendon pain/weakness x2 Morphine And Codeine 07/22/1997 sleepy documented as of this encounter (statuses as of 06/30/2024) Medications CALCIUM + D 600-200 MG-UNIT PO [...] BY MOUTH EVERY DAY-in evening, Reported on 06/30/2024 Clobetasol Propionate 0.05 % External Cream (Temovate)Indica tions:Lichenific ation,Eczema, unspecified type Apply thin layer topically to affected area twice daily as needed. 60 g 1 4 Active LORazepam 1 MG Oral Tablet (Ativan) Take 1 Tablet by mouth as needed for Anxiety or Other (1 tab 1 hour before MRI repeat if needed.). 2 Tablet 4 Active Lubiprostone 24 MCG Oral Capsule (Amitiza) Take 1 Capsule by mouth 2 times a day with morning and evening meals. 60 Capsule 3 4 Active Additional Information Patient not taking.Reported on 06/30/2024 Verapamil HCl ER 240 MG Oral Tablet [...] EVERY DAY 90 Tablet 3 4 Active documented as of this encounter (statuses as of 06/30/2024) Active Problems Problem Noted Date Diagnosed Date Erythema migrans (Lyme disease) 12/20/2022 Malaise and fatigue 12/20/2022 Coronary artery disease invo lving barrow coronary artery of barrow heart without angina pectoris 08/03/2021 Chronic kidney disease, stage 3a 02/28/2021 Overview: Per CKD protocol Old IA (myocardial infarction) 01/28/2021 Gastric dysmotility 07/26/2020 History [...] Scan. 06/06 EGD , dilated. Swallow study. [facility] [place] [facility]. 08/2019 FOB/FIT WNL 06/06 EGD hyperplastic [...] as of this encounter (statuses as of 06/30/2024) Resolved Problems Problem Noted Date Diagnosed Date [...] as of this encounter (statuses as of 06/30/2024) Immunizations Name Administration Dates Next Due COVID-19 mRNA, LNP-s, No Pre serve, 2-Dose Series ([facility]) 05/05/2021,08/02/2020,07/12/2020 COVID-19, MRNA-LNP, PF, 30 M CG/0.3 mL, 12 YRS AND ABOVE, IM ([facility]) 04/02/2023 Covid-19, Mrna, Lnp-s, Pf, B ivalent, 30 Mcg, IM, 12 yrs and above (Pfizer) 04/13/2022 PPD 06/25/2006 Pneumococcal Conjugate Vacc, 13 [...] Not on file Not on file president [facility]. Not on file Not on file Not on file documented as of this encounter Last Filed Vital Signs Vital Sign Reading Time Taken Comments Blood Pressure 148/79 06/30/2024 10:49 AM EST Pulse 71 06/30/2024 10:49 AM EST Temperature 36.1 C (97 F) 06/30/2024 10:49 AM EST Respiratory Rate 16 06/30/2024 10:49 AM EST Oxygen Saturation 97% 06/30/2024 10:49 AM EST Inhaled Oxygen Concentration - - Weight - - Height - - Body Mass Index - - documented in this encounter H&P Notes * Amalia Vance MD - 06/30/2024 9:14 AM EST Endoscopy Pre-Procedure Assessment Name: Myranda Duran Date: 06/30/2024 Time: 9:14 AM Procedure(s): Endoscopic Ultrasound; with Indication(s) of evaluation and management of pancreatic cysts Endoscopy Pre-Procedure Assessment: Prior to the procedure, the patient was identified. The patient's history, medications and allergies were reviewed as per the Anesthesia Assessment. The patient is competent. The risks and benefits of the proposed procedure and the planned sedation were discussed with the patient. All questions were answered and informed consent for the procedure was obtained. There were no vitals taken for this visit. Review of patient's allergies indicates: Allergen Reactions Alex Inhibitors Cough Barium Sulfate Secondary bowel obstruction following barium swallow Ciprofloxacin Tendon pain/weakness x2 Morphine And Codeine sleepy Prior to Admission medications Medication Sig Last Dose Discont. Metoprolol Succinate ER 50 MG Oral Tablet Extended Release 24 Hour (toPROL XL) TAKE 1 TABLET BY MOUTH EVERY DAY 06/25/2024 Bedtime Pantoprazole Sodium 40 MG Oral Tablet Delayed Release (Protonix) Take 1 Tablet by mouth in the morning. 06/26/2024 Morning tiZANidine HCl 4 MG Oral Capsule TAKE 1 CAPSULE BY MOUTH EVERY DAY NEEDED FOR MUSCLE SPASMS PastMonth Losartan Potassium 100 MG Oral Tablet (Cozaar) TAKE 1 TABLET BY MOUTH EVERY DAY 06/25/2024 Bedtime Verapamil HCl ER 240 MG Oral Tablet Extended Release (Isoptin SR) TAKE 1.5 TABLETS BY MOUTH IN THE MORNING 06/26/2024 Atorvastatin Calcium 20 MG Oral Tablet (Lipitor) TAKE 1 TABLET BY MOUTH EVERY DAY Patient taking differently: TAKE 1 TABLET BY MOUTH EVERY DAY-in evening 06/25/2024 Evening Tylenol PM Extra Strength 500-25 MG Oral Tablet (diphenhydrAMINE-APAP (sleep)) Take 1 Tablet by mouth as needed for Sleep. Uses around three times a week 06/25/2024 Multiple Vitamin (MULTIVITAMINS) Capsule Take 1 Capsule by mouth every evening. 06/25/2024 CALCIUM + D 600-200 MG-UNIT PO TABS Take by mouth every evening. 06/25/2024 Lubiprostone 24 MCG Oral Capsule (Amitiza) Take 1 Capsule by mouth 2 times a day with morning and evening meals. Patient not taking: Reported on 04/15/2024 LORazepam 1 MG Oral Tablet (Ativan) Take 1 Tablet by mouth as needed for Anxiety or Other (1 tab 1 hour before MRI repeat if needed.). Over 30 Days Clobetasol Propionate 0.05 % External Cream (Temovate) Apply thin layer topically to affected area twice daily as needed. Physical Exam: Mental Status Examination: alert and oriented. Airway Examination: normal oropharyngeal airway and neck mobility. Respiratory Examination: clear to auscultation. CV Examination: Regular rate and rythm, no murmurs. ASA Grade: II - A patient with mild systemic disease. After reviewing the risks and benefits, the patient was deemed in satisfactory condition to undergothe procedure. The anesthesia plan was to use sedation. Patient was explained in detail regarding risks, benefits, limitations and alternatives of the above endoscopic procedure. Risks of intravenous sedation used for procedure were also explained. Risks include, but not limited to perforation, bleeding, infection, respiratory distress, cardiac arrest and . Risk of acute pancreatitis and necrosis if ERCP is done. Patient is also aware about the possibility of missed lesion. Patient's questions were answered. The patient verbalized understandingthe information and agreed to undergo the procedure. Discussed with the patient that he/she is at an explicit higher risk for complications in comparison to other patients Amalia Vance MD 06/30/2024 documented in this encounter Procedure Notes * Bhavna Barron CRNP - 06/30/2024 9:14 AM ESTAssociated Order(s): UPPER ENDOSCOPIC [facility] Patient Name: Myranda Duran Procedure Date: 06/30/2024 9:14 AM Date of : 1945 Admit Type: Outpatient Note Status: Finalized Date of : 1945 Admit Type: Outpatient Age: 79 Room: Advanced Endo Gender: Female Note Status: Finalized Procedure: Upper EUS Indications: Pancreatic cyst on MRI Providers: Amalia Vance MD (Doctor), Carl Andres RN Referring MD: Bhavna Barron (Referring MD) Medicines: Propofol per Anesthesia Complications: No immediate complications. Procedure: Pre-Anesthesia Assessment: - Prior to the procedure, a History and Physical was performed, and patient medications, allergies and sensitivities were reviewed. The patient's tolerance of previous anesthesia was reviewed. - The risks and benefits of the procedure and the sedation options and risks were discussed with the patient. All questions were answered and informed consent was obtained. - Patient identification and proposed procedure were verified prior to the procedure by the physician and the nurse. The procedure was verified in the procedure room. - Pre-procedure physical examination revealed no contraindications to sedation. After obtaining informed consent, the endoscope was passed under direct vision. All instruments were visually inspected immediately before and after removal from the patient to ensure they are fully intact. Throughout the procedure, the patient's blood pressure, pulse, and oxygen saturations were monitored continuously. The Endoscope was introduced through the mouth, and advanced to the second part of duodenum. The upper EUS was accomplished without difficulty. The patient tolerated the procedure well. Findings & Specimens: ENDOSONOGRAPHIC FINDING: : There was no sign of significant endosonographic abnormality in the ampulla. No masses were identified. There was no sign of significant endosonographic abnormality in the common bile duct. The maximum diameter of the duct was 6 mm. Evidence of a previous cholecystectomy was identified endosonographically. There was no sign of significant endosonographic abnormality in the visualized portion of the liver. Homogeneous parenchyma was identified. There was no sign of significant endosonographic abnormality in the entire pancreas. The pancreatic duct measured up to 2 mm in diameter. An anechoic lesion suggestive of a cyst was identified in the pancreatic tail. The lesion measured 14 mm by 10 mm in maximal cross-sectional diameter. There was a single compartment without septae. The outer wall of the lesion was thin. There was no associated mass. There was no internal debris within the fluid-filled cavity. Diagnostic needle aspiration for fluid was performed. Color Doppler imaging was utilized prior to needle puncture to confirm a lack of significant vascular structures within the needle path. One pass was made with the 19 gauge needle using a transgastric approach. A stylet was used. The amount of fluid collected was 1 mL. The fluid was clear and viscous. Sample(s) were sent for cytology. Verification of patient identification for the specimen was done by the physician and nurse using the patient's name and date. Impression: - There was no sign of significant pathology in the ampulla. - There was no sign of significant pathology in the common bile duct. - Evidence of a cholecystectomy. - There was no evidence of significant pathology in the visualized portion of the liver. - There was no sign of significant pathology in the entire pancreas. 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 Fine needle aspiration for fluid performed. Recommendation: - Discharge patient to home. - Await cytology results. - Perform magnetic resonance imaging (MRI) in 1 year for surveillance. - Return to referring physician. Amalia Vance MD 06/30/2024 10:00:28 AM This report has been signed electronically. documented in this encounter Nursing Notes * Kina Leroy RN - 06/30/2024 11:08 AM EST Patient is alert, pain free, passing flatus and tolerating po fluids prior to discharge. Patient has been visited by Dr. Vance. Patient has received and demonstrates understanding of discharge instructions. Patient ambulated to private auto accompanied by endo staff. * Kina Leroy RN - 06/30/2024 10:40 AM EST VSS, Pt/spouse spoke to Dr. Vance. Pt denies pain or nausea and tolerating po fluids. * Kina Leroy RN - 06/30/2024 10:04 AM EST Patient transferred to post endo s/p EUS/EGD. Patient awake Respirations are even and unlabored on room air. NSR in the 70s on the monitor. Abdomen soft and non distended. Vital signs stable. * Carl Andres RN - 06/30/2024 9:58 AM EST See anesthesia record for medication administered during procedure. Carl Andres RN Specimen(s) and location(s) verified with physician post procedure 9:58 AM Carl Andres RN Pre cleaning of scope at the bedside started by senior service technician. FNA performed on pancreatic cyst by Dr Griffin using a [employer] 19 gauge needle. One pass made, specimen collected for cytology per order. Pt tolerated well. * Tereza Black RN - 06/30/2024 9:26 AM EST The following pt discharge instructions reviewed with pt prior to prodedure: No driving today. No alcohol today. No signing of legal documents. Rest as much as possible today and can return to normal activities tomorrow. No operating any heavy equipment today. Diet as tolerated. Pt verbalized understanding. documented in this encounter Plan of Treatment Upcoming Encounters Date Type Department Care Team (Late st Contact Info) Description 08/13/2024 10:30 AM EST Office Visit Gastroenterology, [facility] [address] [place] [address] Jenni Simons CRNP [address] [place] [address] 11/13/2024 10:00 AM EDT Office Visit Family Practice [facility] [address] [place] [phone] Carl Field MD [address] [place] [address] 06/05/2025 10:00 AM EST Imaging Radiology [address] [place] [phone] Pending Results Name Type Priority Associated Diagnoses Date /Time CYTOLOGY Pathology Routine 06/30/2024 10: 00 AM EST Scheduled Orders Name Type Priority Associated Diagnoses Orde r Schedule CYTOLOGY Pathology Routine One Time for 1 Occurrences starting 06/30/2024 until 06/30/2024 Scheduled Procedures Name Priority Associated Diagnoses Date/Ti me ESOPHAGOGASTRODUODENOSCOPY ( EGD), FLEXIBLE, TRANSORAL, ENDOSCOPIC ULTRASOUND Recall Gastric polyps Intestinal metaplasia of stomach 06/30/2024 9:43 AM EST ESOPHAGOGASTRODUODENOSCOPY ( EGD), FLEXIBLE, TRANSORAL, DIAGNOSTIC Recall Gastric polyps Intestinal metaplasia of stomach 06/30/2024 9:43 AM EST Health Maintenance Due Date Last Done Comments Adult Wellness Visit 09/10/2015 09/09/2014 FOBT ANNUALLY,AGES 18-90 08/23/20232 023, 09/07/2021, 07/26/2020, Additional history exists CKD HGB USE SMARTSET 63069 12/21/202312/20, 12/20/2022, 08/04/2022, Additional history exists COVID-19 Vaccine ( season) 2024 04/02/2023, 04/13/2022, 05/05/2021, Additional history exists GFR 10/27/2024 04/29/2024, 10/16, 12/20/2022, Additional history exists HbA1c 10/27/2024 04/29/2024, 10/16, 01/23/2023, Additional history exists Albumin/Creatinine Ratio 10/29/2024 024, 08/09/2022, 08/09/2021 Depression Screening 11/01/2024 11/02/2023 Diabetic Foot Exam 11/01/2024 11/02/2023, 0 02/03/2022, 12/24/2017 CKD PHOS USE SMARTSET 91187 04/29/202504/18, 04/29/2024, 08/04/2022 Diabetic Eye Exam 05/01/2025 [...] Discontinued 08/23/19, 09/07/2021, 07/26/2020, Additional history exists Influenza Vaccine (FLU shot) [...] this encounter Medical Devices Implanted Type Area Ug Designer Device Identifier Shelf Expiration Date Model / Serial / Lot Hemostatic Clip Res 235cm - [id number] Implanted:Qty: 4 on 04/12/2023 by Amalia Vance MD at ENDOSCOPY [facility] : ENDOSCOPY 02/05/2026 [id number] / / documented as of this encounter Procedures Procedure Name Priority Date/Time Associated Diagnosis Comments UPPER ENDOSCOPIC U/S 06/30/2024 9:14 AM EST documented in this encounter Results * UPPER ENDOSCOPIC U/S (06/30/2024 9:14 AM EST) 06/30/2024 9:14 AM EST Narrative Procedure Note Bhavna Barron CRNP - 06/30/2024 9:14 AM EST [facility] Patient Name: Myranda Duran Procedure Date: 06/30/2024 9:14 AM Date of : 1945 Admit Type: Outpatient Note Status:Finalized Date of : 1945 Admit Type: Outpatient Age: 79 Room: Advanced Endo Gender: Female Note Status: Finalized Procedure: Upper EUS Indications: Pancreatic cyst on MRI Providers: Amalia Vance MD (Doctor), Carl Andres RN Referring MD: Bhavna Barron (Referring MD) Medicines: Propofol per Anesthesia Complications: No immediate complications. Procedure: Pre-Anesthesia Assessment: - Prior to the procedure, a History and Physicalwas performed, and patient medications, allergies and sensitivities werereviewed. The patient's tolerance of previous anesthesia was reviewed. - The risks and benefits of the procedure and thesedation options and risks were discussed with the patient. All questions wereanswered and informed consent was obtained. - Patient identification and proposed procedurewere verified prior to the procedure by the physician and the nurse. The procedure wasverified in the procedure room. - Pre-procedure physical examination revealed nocontraindications to sedation. After obtaining informed consent, the endoscope waspassed under direct vision. All instruments were visually inspected immediatelybefore and after removal from the patient to ensure they are fully intact. Throughout the procedure, the patient's bloodpressure, pulse, and oxygen saturations were monitored continuously. The Endoscope wasintroduced through the mouth, and advanced to the second part of duodenum. The upperEUS was accomplished without difficulty. The patient tolerated the procedurewell. Findings & Specimens: ENDOSONOGRAPHIC FINDING: : There was no sign of significant endosonographic abnormality in theampulla. No masses were identified. There was no sign of significant endosonographic abnormality in thecommon bile duct. The maximum diameter of the duct was 6 mm. Evidence of a previous cholecystectomy was identifiedendosonographically. There was no sign of significant endosonographic abnormality in thevisualized portion of the liver. Homogeneous parenchyma was identified. There was no sign of significant endosonographic abnormality in theentire pancreas. The pancreatic duct measured up to 2 mm in diameter. An anechoic lesion suggestive of a cyst was identified in thepancreatic tail. The lesion measured 14 mm by 10 mm in maximal cross-sectional diameter. There was a singlecompartment without septae. The outer wall of the lesion was thin. There was no associated mass.There was no internal debris within the fluid-filled cavity. Diagnostic needle aspiration for fluid wasperformed. Color Doppler imaging was utilized prior to needle puncture to confirm a lack ofsignificant vascular structures within the needle path. One pass was made with the 19 gauge needle using atransgastric approach. A stylet was used. The amount of fluid collected was 1 mL. The fluid was clear andviscous. Sample(s) were sent for cytology. Verification of patient identification for the specimen wasdone by the physician and nurse using the patient's name and date. Impression: - There was no sign of significant pathology in theampulla. - There was no sign of significant pathology in thecommon bile duct. - Evidence of a cholecystectomy. - There was no evidence of significant pathology inthe visualized portion of the liver. - There was no sign of significant pathology in theentire pancreas. - A 14 mm cyst was seen in the pancreatic taillikely a side branch IPMN. Fine needle aspiration for fluid performed. Recommendation: - Discharge patient to home. - Await cytology results. - Perform magnetic resonance imaging (MRI) in 1year for surveillance. - Return to referring physician. Amalia Vance MD 06/30/2024 10:00:28 AM This report has been signed electronically. Bhavna MADRID GASTRO UPPER Final Result documented in this encounter Visit Diagnoses Diagnosis Pancreatic cyst- Primary Cyst and pseudocyst of pancreas Screening mammogram for breast cancer documented in this encounter Administered Medications Inactive Administered Medications - up to 3 most recent administrations Medication Order MAR Action Action Date Dose Rate Site Acetaminophen (Tylenol) tab 650 mg 650 mg, Oral, PRN Pain, Mild, Starting on Sun06/30/24 at 1010, Until Sun06/30/24 at 1509, For 1 dose, Maximum of 4 grams (4000 mg) per day., Post-op Isolyte-S pH 7.4 infusion Intravenous, at 100 mL/hr, Plasma-LYTE 148, isolyte-S, and isolyte-S pH 7.4 are considered equivalent - including for MAR barcode scanning., CONTINUOUS, Starting on Sun06/30/24 at 1015, Until Sun06/30/24 at 1509, Pre-Op Continue from Pre-Op 06/30/2024 9:42 AM EST 100 mL/hr New Bag 06/30/2024 9:34 AM EST 100 mL/hr documented in this encounter Active and Recently Administered Medications Times are shown in EST. Scheduled Medication Order 06/28/2024 06/29/2024 06/30/2024 ceFAZolin in dextrose (Ancef) ivpb 2 g (COMPLETED) 2 g, IV Piggyback, ONCE, 1 dose, On Sun06/30/24 at 0945 0952 (Given - Provid er: Rodney Higginbotham CRNA) Continuous Medication Order 06/28/2024 06/29/2024 06/30/2024 Isolyte-S pH 7.4 infusion Intravenous, at 100 mL/hr, Plasma-LYTE 148, isolyte-S, and isolyte-S pH 7.4 are considered equivalent - including for MAR barcode scanning., CONTINUOUS, Starting on Sun06/30/24 at 1015, Until Sun06/30/24 at 1509, Pre-Op 0934 (New Bag - Prov ider: Tereza Black RN)0942 (Continue from Pre-Op - Provider: Rodney Higginbotham CRNA)1001 (Anes Intra-Op Fluid - Provider: Rodney Higginbotham CRNA) PRN Medication Order 06/28/2024 06/29/2024 06/30/2024 Acetaminophen (Tylenol) tab 650 mg 650 mg, Oral, PRN Pain, Mild, Starting on Sun06/30/24 at 1010, Until Sun06/30/24 at 1509, For 1 dose, Maximum of 4 grams (4000 mg) per day., Post-op documented in this encounter Care Teams Warper Tender Relationship Specialty Start Date End Date Bhavna Barron CRNP [address] [place] [id number] PCP - General Nurse Practitioner 06/25/24 documented as of this encounter
--- OUTSIDE RECORDS SUMMARY | 2024-07-18 14:16 | External Medical Summary ---
Author Name Unknown Address Unknown Organization [id number]:[facility] [place] [address] [place] [address] Laboratory Report Ordering Provider Test Date Status IHSAN SILVA 07/04/2024 13:13:50 Final Observation Date Value Abnormality Reference (Units ) Status Lipase 07/04/2024 13:13:50 38 13-60 (U/L ) Final Performing Location LABORATORY [facility] - [address] [place] [address]
--- OUTSIDE RECORDS SUMMARY | 2024-07-18 14:16 | External Medical Summary ---
Author Name Unknown Address Unknown Organization [id number]:[facility] [place] [address] - [address] [place] [address] Laboratory Report Ordering Provider Test Date Status IHSAN SILVA 07/04/2024 13:13:50 Final Observation Date Value Abnormality Reference (Units ) Status SYNC LEUKOCYTES IN BLOOD BY AUTOMATED COUNT 07/04/2024 13:13:50 7.26 4.00-10.80 (K/uL) Final Segs 07/04/2024 13:13:50 69.3 40.0-75.0 (%) Final Lymphs % 07/04/2024 13:13:50 18.6 18.0-42.0 (%) Final Monos 07/04/2024 13:13:50 9.2 1.0-11.0 (%) Final Eosinophils 07/04/2024 13:13:50 2.8 0.0-6.0 (%) Final Basos 07/04/2024 13:13:50 0.1 0.0-2.0 (%) Final Absolute Segs 07/04/2024 13:13:50 5.03 1.80-7.70 (K/uL) Final Lymphs, absolute 07/04/2024 13:13:50 1.35 1.00-4.80 (K/ul) Final Monos, Abs 07/04/2024 13:13:50 0.67 0.00-1.10 (K/uL) Final Eos, Abs 07/04/2024 13:13:50 0.20 0.00-0.70 (K/uL) Final Basos, Abs 07/04/2024 13:13:50 0.01 0.00-0.20 (K/uL) Final [facility] [address] [place] [address]
--- OUTSIDE RECORDS SUMMARY | 2024-07-18 14:16 | External Medical Summary ---
Author Name Unknown Address Unknown Organization [id number] [address] [place] [address] Laboratory Report Ordering Provider Test Date Status IHSAN SILVA 07/04/2024 13:13:50 Final Observation Date Value Abnormality Reference (Units ) Status BUN 07/04/2024 13:13:50 15 6-20 (mg/dL) Final Creatinine 07/04/2024 13:13:50 0.9 0.5-1.0 (mg/dL) Final Glomerular filtration rate/1.73 sq M.predicted [Volume Rate/Area] in Serum, Plasma or Blood by Creatinine-based formula (CKD-EPI) 07/04/2024 13:13:50 70 >=60 (mL/min) Final eGFR is calculated based on the CKD-EPI 2020 equation. Sodium 07/04/2024 13:13:50 135 135-146 (m mol/L) Final Potassium 07/04/2024 13:13:50 4.7 3.5-5.1 (m mol/L) Final Cl 07/04/2024 13:13:50 100 98-107 (mm ol/L) Final CO2 07/04/2024 13:13:50 26 22-32 (mmo l/L) Final Anion gap 07/04/2024 13:13:50 9 7-15 (mmol /L) Final Glucose 07/04/2024 13:13:50 209 Above high normal 70 -120 (mg/dL) Final Albumin 07/04/2024 13:13:50 3.7 Below low normal 3.8 -5.0 (g/dL) Final AST (Aspartate aminotransferase) 07/04/2024 13:13:50 13 10-35 (U/L) Fin al Alk Phos 07/04/2024 13:13:50 72 35-130 (U/ L) Final Bilirubin, Total 07/04/2024 13:13:50 0.4 <=1 .2 (mg/dL) Final Calcium 07/04/2024 13:13:50 9.8 8.4-10.2 ( mg/dL) Final Protein 07/04/2024 13:13:50 6.3 6.0-8.3 (g /dL) Final ALT (Alanine aminotransferase) 07/04/2024 13:13:50 23 10-35 (U/L) Hugo reyes Performing Location [facility] [address] [place] [address]
--- NOTE | 2024-07-18 14:18 | CT Scan Report ---
CT angio chest PE protocol CT DOSE: 966.48 mGy.cm HISTORY: PE. TECHNIQUE: Multiple CTA images of the chest were obtained after the intravenous administration of 112 ml Optiray. Coronal and sagittal MIPS were obtained from the axial data set and were submitted for review. All measurements were obtained according to NASCET criteria. A dose lowering technique was u tilized adhering to the principles of ALARA. COMPARISON STUDY: 10/28/2018 FINDINGS: There is no pulmonary consolidation or pleural effusion. No pneumothorax. No enlarged adeno shikha. No pericardial effusion. No thoracic aortic dissection or aneurysm. There is small volume acut e pulmonary embolism at a few subsegmental right upper and lower lobe pulmonary artery branches. RV L V ratio is less than 1. No acute osseous findings. IMPRESSION: Small volume acute pulmonary embolism with no evidence of right heart strain. ACT 112: Negative or not required by law. The above report was generated using voice recognition software. It may contain grammatical, syntax o r spelling errors. Electronically signed by: Robson Frank M.D. 07/18/2024 2:15 PM
--- NOTE | 2024-07-18 14:44 | Electrocardiogram Report ---
Test Reason : Blood Pressure : */* mmHG Vent. Rate : 72 BPM Atrial Rate : 72 BPM P-R Int : 186 ms QRS Dur : 76 ms QT Int : 414 ms P-R-T Axes : 10 -4 24 degrees QTcB Int : 453 ms Normal sinus rhythm Normal ECG When compared with ECG of 12-Jan-2023 12:53, No significant change was found Confirmed by Tip Morrell ([id number]) on 07/18/2024 2:43:25 PM Referred By: Carl Field Confirmed By: Tip Morrell
--- NOTE | 2024-07-18 14:45 | Gastrointestinal Consultation ---
Date of Consultation July 18, 2024 Assessment & Plan (1) Acute pancreatitis: 79-year-old female with PMHx of acute pancreatitis, DM type II, CKD stage III, obesity, who presented to her family medicine practice this morning due to worsening abdominal pain over the past 2 weeks status post EUS FNA at [facility] facility on 06/30/2024. Patient states that she has had cystic lesions and has been followed by MRCP. She was scheduled at [facility] in June 30 for a follow-up of these pancreatic cystic lesion 1.9 cm. She underwent an EUS FNA in the tail and mid body of the pancreas (we actually do not have the actual report). Postop had some pain which worsened over time. LFTs amylase lipase normal but CT here shows pancreatitis with a small fluid collection in the pancreatic tail abutting the greater curvature consistent with likely a postbiopsy pancreatitis/phlegmon. She also was found to have an acute PE and a UTI. She is safe for anticoagulation from a GI perspective. For now I would keep her n.p.o. with IV fluids lactated Ringer's between 100- 150 cc/h and we will reasse ss tomorrow to see if she can tolerate a liquid diet. Supportive care for the pancreatitis with pain control and IV fluids. (2) Pulmonary emboli: As per primary team History of Present Illness Reason for Consultation: Acute pancreatitis History of Present Illness 79-year-old female with PMHx of acute pancreatitis, DM type II, CKD stage III, obesity, who presented to her family medicine practice this morning due to worsening abdominal pain over the past 2 weeks status post EUS FNA at [facility] facility on 06/30/2024. Patient states that she has had cystic lesions and has been followed by MRCP. She was scheduled at [facility] in June 30 for a follow-up of these pancreatic cystic lesion 1.9 cm. She underwent an EUS FNA in the tail and mid body of the pancreas (we actually do not have the actual report). Postop had some pain which worsened over time -- went to see her PCP. CT on 07/04/24 confirmed mild acute pancreatitis. She has had previous episodes of pancreatitis precipitated by a gallbladder attack several years ago. Over the week went on liquid diet but still had pain. The pain progressively worsened until she came in today with some nausea and epigastric right-sided and left-sided abdominal pain radiating into her back. She was found to have an acute PE, UTI and findings consistent with pancreatitis. CT done here showed: Findings suggestive of mild acute pancreatitis of the pancreatic tail with intermediate density 2.1 cm pancreatic tail lesion which is new from the prior exam abutting the adjacent greater curvature of the stomach. Appears to be a post-biopsy collection. 3. Hypodense 1.9 cm lesion posterior to the pancreatic tail redemonstrated which is similar in appearance to the study from 12/22/2022. 4. No drainable peripancreatic fluid collections or pancreatic ductal dilation. Allergies Allergy/AdvReac Type Severity Reaction Status Date / Time moxifloxacin [From Avelox] Allergy Severe Unknown Verified 06/09/24 09:40 barium sulfate AdvReac Severe RUPTURE OF Verified 06/09/24 09:40 BOWEL codeine AdvReac Unknown EFFECTS Verified 06/09/24 09:40 LAST ABOUT 1 WEEK LYNSEY Inhibitors AdvReac Cough Verified 06/09/24 09:40 ciprofloxacin [From Cipro] AdvReac tendon Verified 06/09/24 09:40 pain and weakness Home Medications Medication Instructions Recorded Confirmed Type atorvastatin 20 mg tablet 20 mg PO PM 01/12/23 07/18/24 History losartan 100 mg tablet 100 mg PO DAILY 01/12/23 07/18/24 History metoprolol succinate 50 mg 50 mg PO DAILY 01/12/23 07/18/24 History tablet,extended release 24 hr tizanidine 4 mg capsule 4 mg PO DAILY PRN muscle spasms 01/12/23 07/18/24 History verapamil 240 mg tablet,extended 360 mg PO DAILY 02/27/24 07/18/24 History release hydrocodone 5 mg-acetaminophen 325 1 tab PO Q8H 07/18/24 07/18/24 History mg tablet pantoprazole 40 mg tablet,delayed 40 mg PO QAM 07/18/24 07/18/24 History release Patient History Medical History (Updated 07/18/24 @ 12:59 by Yvonne Cannon PA-C) Nausea and vomiting after administration of anesthetic agent Skin cancer of breast left Pancreatitis GERD (gastroesophageal reflux disease) Migraine Gastric bezoar Hyperlipidemia Hypertension Asthma "stress induced" Surgical History Hx of Moh's micrographic surgery for skin cancer left breast skin cancer History of bilateral salpingo-oophorectomy (BSO) History of partial hysterectomy History of dilatation and curettage History of esophagogastroduodenoscopy (EGD) History of colonoscopy History of exploratory laparotomy x2 for lysis of adhesions History of Nathan fundoplication History of umbilical hernia repair History of colostomy reversal 12/2008 @ [facility] History of colectomy 10/2008--sigmoid colectomy and colostomy d/t perforation @ [facility] History of appendectomy History of cholecystectomy History of tonsillectomy and adenoidectomy History of endoscopic sinus surgery S/P cervical spinal fusion C2-5; normal ROM History of cardiac cath 2016, no stent follows with Dr. Hart Family History Aunt Breast cancer Cancer Uterine cancer Mother Parkinson disease Father Stroke Social History Smoking Status: Never smoker Second Hand Exposure: Yes (both parents smoked); Do You Dip or Chew Tobacco: No; Hx Alcohol Use: Yes Alcohol type: wine Hx Substance Use: No Preferred Language: Mosotho Communication Ability: Effective Wheel Presser Required: No Beliefs That Will Affect Care: None marital status: Current Living Situation: Spouse current occupational status: retired Feels Safe at Home: Yes Assistive Devices: Glasses Review of Systems Review of Systems: All systems reviewed & are unremarkable except as noted in HPI & below Physical Exam Physical Exam: Physical Exam: General: Well nourished and well developed in NAD HEENT: EOMI, PERRL Neck: trachea midline, no lad Lungs: CTA b, bilateral bs present Heart: RRR, no M and no edema Abd: soft, tender in the periumbilical epigastric region, mild-moderate distention normal active bowel sounds Musculoskeletal: no c/c/e, normal strength B Neuro: CN2-12 intact, normal gait, normal strength Psych: normal affect and mood, euthymic. Results & Data Vital Signs (Past 12 Hours) Vital Signs Temp Pulse Pulse Resp BP BP Pulse Ox 07/18/24 14:30 68 15 159/67 H 92 07/18/24 14:23 152/66 H 07/18/24 13:13 64 07/18/24 12:05 70 16 195/91 H 96 07/18/24 10:44 94 07/18/24 10:44 72 17 159/91 H 94 07/18/24 09:52 36.9 C 79 18 130/68 93 O2 Del Method O2 Flow Rate 07/18/24 14:30 Nasal Cannula 2 07/18/24 14:23 07/18/24 13:13 07/18/24 12:05 Room Air 07/18/24 10:44 Room Air 07/18/24 10:44 Room Air 07/18/24 09:52 Room Air Laboratory Results Lab Results 07/18/24 07/18/24 Range/Units 10:34 12:06 WBC 7.32 (4.8-10.8) K/ul RBC 4.53 (4.20-5.40) M/uL Hgb 14.2 (12.0-16.0) g/dl Hct 42.4 (37.0-47.0) % MCV 93.6 (80.0-100.0) fL MCH 31.3 (25.0-34.0) pg MCHC 33.5 (32.0-36.0) g/dL RDW Std Deviation 40.5 (36.4-46.3) fL RDW Coeff of Nancy 11.7 (11.5-14.5) % Plt Count 213 (130-400) K/uL MPV 9.6 (9.4-12.4) fL Immature Gran % (Auto) 0.4 % Neut % (Auto) 68.8 % Lymph % (Auto) 20.5 % [place] % (Auto) 7.9 % Eos % (Auto) 2.0 % Baso % (Auto) 0.4 % Neut # (Auto) 5.03 (1.40-6.50) K/uL Lymph # (Auto) 1.50 (1.20-3.40) K/uL [place] # (Auto) 0.58 (0.11-0.59) K/uL Eos # (Auto) 0.15 (0.00-0.50) K/uL Baso # (Auto) 0.03 (0.00-0.20) K/uL Immature Gran # (Auto) 0.03 (0.01-0.20) K/uL Sodium 136 (136-145) mmol/L Potassium 4.0 (3.5-5.1) mmol/L Chloride 101 (98-107) mmol/L Carbon Dioxide 28 (21-32) mmol/L Anion Gap 7 (3-11) BUN 14 (6-23) mg/dl Creatinine 0.81 (0.6-1.2) mg/dl Est Cr Clr Drug Dosing Not Reportable eGFR 74.72 BUN/Creatinine Ratio 17.3 (10-20) Glucose 164 H (70-99(Fasting)) mg/dl Calcium 9.6 (8.6-10.3) mg/dl Total Bilirubin 0.6 (0.2-1.0) mg/dl AST 14 (13-39) U/L ALT 23 (7-52) U/L Alkaline Phosphatase 65 (34-104) U/L Troponin I High Sens 3.7 (0-14) pg/ml Total Protein 6.2 (6.0-8.3) gm/dl Albumin 3.8 (3.4-5.0) gm/dl Globulin 2.4 L (2.5-4.0) gm/dl Albumin/Globulin Ratio 1.6 (0.9-2) Lipase 15 (11-82) U/L Urine Color Dark Yellow Urine Appearance Cloudy A (Clear) Urine pH 7.0 (4.5-7.5) Ur Specific [place] 1.021 (1.000-1.030) Urine Protein 2+ H (Negative) Urine Glucose (UA) Negative (Negative) Urine Ketones Trace H (Negative) Urine Blood Negative (Negative) Urine Nitrite Negative (Negative) Urine Bilirubin Negative (Negative) Urine Urobilinogen Negative (Negative) Ur Leukocyte Esterase 1+ H (Negative) Urine WBC (Auto) 6-10 H (0-5) /hpf Urine RBC (Auto) 0-2 (0-2) /hpf U Hyaline Cast (Auto) 0-2 (0-2) /lpf U Epithel Cells (Auto) 11-20 H (0-2) /hpf Urine Bacteria (Auto) 2+ H (None Seen) Calcium Oxalate Crystal Present A (None Prsent) Urine Mucus Present A (None Prsent) Diagnostic Findings Abdomen/Pelvis CT 07/18/24 11:[address] WITH IV CONTRAST CT DOSE: 1447.39 mGy.cm HISTORY: Acute epigastric abdominal pain with reported pancreatitis abd pain, recent pacreas biopsy TECHNIQUE: Multiaxial CT images of the abdomen and pelvis were performed following the IV administration of 94 cc of Optiray, A dose lowering technique was utilized adhering to the principles of ALARA. COMPARISON STUDY: 12/22/2022, 10/28/2022, 03/23/2009, chest CT 10/28/2018 FINDINGS: Segmental and subsegmental right lower lobe pulmonary emboli incidentally noted. Small Bochdalek hernias. No pneumatosis or pneumoperitoneum. Unremarkable spleen, adrenal glands and liver. Cholecystectomy with intrahepatic and extrahepatic biliary ductal dilation which is likely postsurgical. The common bile duct measures 1.4 cm. Ovoid circumscribed centrally hypodense lesion posterior to the pancreatic tail on image 121 series 3 redemonstrated in retrospect this is unchanged dating back to the 12/22/2022 study and is new from 10/28/2018. There is mild interstitial and peripancreatic inflammatory stranding adjacent to the pancreatic tail. Intermediate density 2.1 x 1.7 x 1.5 cm lesion involves the superior aspect of the pancreatic tail on image 107 series 3 which is new from the prior studies. This abuts the adjacent greater curvature of the stomach. No pancreatic ductal dilation. No drainable fluid collections. Mild nonspecific bilateral perinephric stranding. Mild cortical thinning of the kidneys without hydronephrosis. Probable small cyst of the lateral interpolar left kidney. Unremarkable urinary bladder. Hysterectomy. The aorta and IVC are unremarkable. No lymphadenopathy. Small hiatal hernia. Colonic diverticulosis without acute diverticulitis. Sigmoid colon anastomotic suture. Prior ventral abdominal wall herniorrhaphy repair. No acute fracture. IMPRESSION: 1. Right lower lobe segmental and subsegmental pulmonary emboli. 2. Findings suggestive of mild acute pancreatitis of the pancreatic tail with intermediate density 2.1 cm pancreatic tail lesion which is new from the prior exam abutting the adjacent greater curvature of the stomach. Differential considerations include a solid versus complex primary cystic pancreatic lesion, complex pseudocyst versus post-biopsy collection. Follow-up recommended. 3. Hypodense 1.9 cm lesion posterior to the pancreatic tail redemonstrated which is similar in appearance to the study from 12/22/2022. 4. No drainable peripancreatic fluid collections or pancreatic ductal dilation. 5. Colonic diverticulosis without acute diverticulitis. ACT 112: Negative or not required by law. The above report was generated using voice recognition software. It may contain grammatical, syntax or spelling errors. Electronically signed by: Esequiel Gaston M.D. 07/18/2024 12:28 PM Chest CTA 07/18/24 13:27 CT angio chest PE protocol CT DOSE: 966.48 mGy.cm HISTORY: PE. TECHNIQUE: Multiple CTA images of the chest were obtained after the intravenous administration of 112 ml Optiray. Coronal and sagittal MIPS were obtained from the axial data set and were submitted for review. All measurements were obtained according to NASCET criteria. A dose lowering technique was utilized adhering to the principles of ALARA. COMPARISON STUDY: 10/28/2018 FINDINGS: There is no pulmonary consolidation or pleural effusion. No pneumothorax. No enlarged adenopathy. No pericardial effusion. No thoracic aortic dissection or aneurysm. There is small volume acute pulmonary embolism at a few subsegmental right upper and lower lobe pulmonary artery branches. RV LV ratio is less than 1. No acute osseous findings. IMPRESSION: Small volume acute pulmonary embolism with no evidence of right heart strain. ACT 112: Negative or not required by law. The above report was generated using voice recognition software. It may contain grammatical, syntax or spelling errors. Electronically signed by: Robson Frank M.D. 07/18/2024 2:15 PM PG Care Time/CCT Total # of Minutes Spent Total Time Spent with Patient: Total time spent is greater than 50% in coordination of care (as documented) at patient's floor/unit and/or counseling patient: Coding Level of Care Code 57939 INT INP/OBS CARE 2/55MIN Diagnoses Acute pancreatitis K85.90 Pulmonary emboli I26.99
--- NOTE | 2024-07-18 15:47 | Ultrasound Report ---
BILATERAL LOWER EXTREMITY VENOUS DOPPLER HISTORY: Screening the patient with pulmonary emboli Eval for DVT, confirmed PE COMPARISON STUDY: CTA chest of same day FINDINGS: There is normal compressibility, flow, and augmentation within the bilateral lower extremit y deep venous systems. IMPRESSION: No DVT within the right or left lower extremity. ACT 112: Negative or not required by law. Electronically signed by: Esequiel Gaston M.D. 07/18/2024 3:46 PM
[2024-07-18] MEDS ORDERED: ENOXAPARIN 1 MG/KG SQ SCH (17:00)
[2024-07-18] MEDS ORDERED: MoRPHine SULFATE 2 MG/ML CARP IV PRN (17:00)
[2024-07-18] MEDS: LACTATED RINGER'S 1,000 ML IV SCH (17:26)
[2024-07-18] MEDS: ONDANSETRON INJ 2 MG/ML 2 ML VIAL IV PRN (17:49)
[2024-07-18] MEDS: cefTRIAXone SODIUM 1,000 MG/50 ML BAG IV SCH (17:49)
[2024-07-18] MEDS: ENOXAPARIN 100 MG/1ML SYR SQ SCH (17:49)
[2024-07-18] MEDS: oxyCODONE HCL IR 5 MG TAB (IMMEDIATE RELEASE) PO PRN (19:49)
[2024-07-18] MEDS: ATORVASTATIN 20 MG TAB PO SCH (19:49)
[2024-07-19] MEDS: ACETAMINOPHEN 325 MG TAB PO PRN (03:04)
--- OUTSIDE RECORDS SUMMARY | 2024-07-19 04:07 | External Medical Summary | Summary of Care ---
Author Name Unknown Organization [facility] Address [address] [facility] [place] [address] Phone [phone] Care Team Providers Care Dyer Helper Name Role Phone Bhavna Barron Primary Care Provider [phone] Reason for Visit * Reason Comments Acute Pancreatitis, dx 06/18 3. Severe abdominal pain, nausea Encounter Details Date Type Department Care Team (Late st Contact Info) Description 07/18/2024 8:40 AM EST Office Visit Family [facility] [address] [place] [address] Bhavna Barron CRNP [address] [place] [address] Other acute pancreatitis, unspecified complication status*; Abdominal pain with radiation to back; Pancreas cyst; Type 2 diabetes mellitus with hemoglobin A1c goal of less than 8.0% ([facility]); Severe obesity with body mass index (BMI) of 35.0 to 39.9 with serious comorbidity ([facility]); Chronic kidney disease, stage 3a ([facility]) Allergies Active Allergy Reactions Criticality Noted Date Comments Alex Inhibitors Cough 11/25/2015 Barium Sulfate 12/14/2008 Secondary bowel obstruction following barium swallow Ciprofloxacin 08/30/2018 Tendon pain/weakness x2 Morphine And Codeine 07/22/1997 sleepy documented as of this encounter (statuses as of 07/18/2024) Medications CALCIUM + D 600-200 MG-UNIT PO [...] BY MOUTH EVERY DAY-in evening, Reported on 07/18/2024 Clobetasol Propionate 0.05 % External Cream (Temovate)Indica [...] as of this encounter (statuses as of 07/18/2024) Active Problems Problem Noted Date Diagnosed Date Erythema migrans (Lyme disease) 12/20/2022 Malaise and fatigue 12/20/2022 Coronary artery disease invo lving [place] coronary artery of [place] heart without angina pectoris 08/03/2021 Chronic kidney disease, stage 3a 02/28/2021 Overview: Per CKD protocol Old ID (myocardial infarction) 01/28/2021 Gastric dysmotility 07/26/2020 History [...] Scan. 06/06 EGD , dilated. Swallow study. [facility] Board. 08/2019 FOB/FIT WNL 06/06 EGD [...] as of this encounter (statuses as of 07/18/2024) Resolved Problems Problem Noted Date Diagnosed Date [...] as of this encounter (statuses as of 07/18/2024) Immunizations Name Administration Dates Next Due COVID-19 mRNA, LNP-s, No Pre serve, 2-Dose Series ([employer]) 05/05/2021,08/02/2020,07/12/2020 COVID-19, MRNA-LNP, PF, 30 M CG/0.3 mL, 12 YRS AND ABOVE, IM ([employer]) 04/02/2023 Covid-19, Mrna, Lnp-s, Pf, B ivalent, 30 Mcg, IM, 12 yrs and above ([employer]) 04/13/2022 PPD 06/25/2006 Pneumococcal Conjugate Vacc, 13 [...] No 04/17/2024 Does the household have a [facility] source [facility] income? (Household - for ages [...] Not on file Not on file president [facility] board. Not on file Not on file Not on file documented as of this encounter Last Filed Vital Signs Vital Sign Reading Time Taken Comments Blood Pressure 148/82 07/18/2024 8:30 AM EST Pulse 100 07/18/2024 8:30 AM EST Temperature 37.2 C (99 F) 07/18/2024 8:30 AM EST Respiratory Rate - - Oxygen Saturation 96% 07/18/2024 8:30 AM EST Inhaled Oxygen Concentration - - Weight 95.3 kg (210 lb 1.6 oz) 07/18/2024 8:30 A M EST Height 160 cm (5' 3") 07/18/2024 8:30 AM EST Body Mass Index 37.22 07/18/2024 8:30 AM EST documented in this encounter Progress Notes * Bhavna Barron CRNP - 07/18/2024 8:51 AM EST Images from the original note were not included. Subjective Myranda Duran is a 79 year old female that presents for Acute (Pancreatitis, dx 06/30. Severe abdominal pain, nausea) History of Present Illness The patient presents with worsening abdominal pain over the past two weeks since EGD with biopsy on06/30/24. CT on 07/04/24 confirmed acute pancreatitis. She reports that the pain is similar to her previous episode of pancreatitis, which was precipitated by a gallbladder attack several years ago. She was given hydrocodone-acetaminophen for pain. However, the pain is progressively worse. Pain islocated in the middle of her back, radiating around to the left side of her upper abdomen and occasionally up to her shoulder blades. She also reports feeling nauseated and having a lack of energy, to the point where she struggles to walk from her living room to her kitchen. She also reports havinga fever and a fast heart rate. She has been having infrequent bowel movements, which she attributesto not eating much due to the pain and nausea. When she does have a bowel movement, it is often difficult and hard, and she has had two episodes of diarrhea. Objective Vitals: 07/18/24 0830 Temp: 99 F (37.2 C) Pulse: 100 SpO2: 96% BP: 148/82 BMI: 37.23 Physical Exam VITALS: T- 99F, P- fast ABDOMEN: Tenderness in the left upper quadrant and back Physical Exam Constitutional: Appearance: Normal appearance. HENT: Head: Normocephalic. Cardiovascular: Rate and Rhythm: Normal rate and regular rhythm. Pulmonary: Effort: Pulmonary effort is normal. Breath sounds: Normal breath sounds. Abdominal: General: Bowel sounds are normal. Tenderness: There is abdominal tenderness in the left upper quadrant. There is left CVA tenderness. Musculoskeletal: General: No swelling. Cervical back: Neck supple. Skin: General: Skin is warm. Neurological: Mental Status: She is alert and oriented to person, place, and time. Psychiatric: Mood and Affect: Mood normal. I have reviewed the following results: Results RADIOLOGY CT scan: Diagnosed pancreatitis (07/04/2024) DIAGNOSTIC Endoscopic ultrasound: Performed biopsies from the pancreas (06/30/2024) Assessment and Plan Assessment & Plan Pancreatitis Persistent abdominal pain for two weeks, worse than initial presentation. History of pancreatitis secondary to gallstones. Recent endoscopy with ultrasound and biopsies from pancreas. Pain is uncontrolled with hydrocodone. Mild fever and tachycardia present. -Recommend to go ER for further management, pt will go [facility] -Offered ambulance, pt declined - will drive. Constipation Infrequent bowel movements with occasional hard stools and episodes of diarrhea. Likely secondary to decreased oral intake and pancreatitis. General Fatigue Decreased energy and inability to perform usual activities. Likely secondary to ongoing illness anddecreased oral intake. -Management to be addressed during hospital admission. Other acute pancreatitis, unspecified complication status (Primary) Abdominal pain with radiation to back Pancreas cyst Type 2 diabetes mellitus with hemoglobin A1c goal of less than 8.0% (HCC) Severe obesity with body mass index (BMI) of 35.0 to 39.9 with serious comorbidity (HCC) Chronic kidney disease, stage 3a (HCC) Wrap-Up Time: I spent a total of 20-29 minutes (exact time 25 mins) on the date of service in preparation, delivery, and documentation of the care provided to Myranda Duran excluding any time spent in the performance of separately billed services. Text in this note was generated using an ambient documentation service. I discussed the use of a device to record and summarize our discussion today. All persons present during the encounter consented to its use. documented in this encounter Nursing Notes * Ariana Van CMA - 07/18/2024 8:30 AM EST The patient has been properly identified by confirmation of name and date of . Chief Complaint Patient presents with Acute Pancreatitis, dx 06/30. Severe abdominal pain, nausea documented in this encounter Plan of Treatment Upcoming Encounters Date Type Department Care Team (Late st Contact Info) Description 08/13/2024 10:30 AM EST Office Visit Gastroenterology, [facility] [address] [place] [address] Jenni Simons CRNP [address] [place] [address] 11/13/2024 10:00 AM EDT Office Visit Family Practice [facility] [address] [place] [address] Carl Field MD [address] [place] [address] 06/05/2025 10:00 AM EST Imaging Radiology [facility] 1st [facility] [place] [address] [place] [phone] Health Maintenance Due Date Last Done Comments Adult Wellness Visit 09/10/2015 09/09/2014 FOBT ANNUALLY,AGES 18-90 08/23/2023 023, 09/07/2021, 07/26/2020, Additional history exists HbA1c 10/27/2024 04/29/2024, 10/16, 01/23/2023, Additional history exists Albumin/Creatinine Ratio 10/29/2024 024, 08/09/2022, 08/09/2021 Depression Screening 11/01/2024 11/02/2023 Diabetic Foot Exam 11/01/2024 11/02/2023, 0 02/03/2022, 12/24/2017 GFR 01/01/2025 07/04/2024, 04/18, 10/30/2023, Additional history exists CKD PHOS USE SMARTSET 04265 04/29/202504/18, 04/29/2024, 08/04/2022 Diabetic Eye Exam 05/01/2025 05/01/2024, 07/25/2022 Mammogram 06/04/2025 06/04/2024, 05/18, 04/27/2022, Additional history exists CKD HGB USE SMARTSET 54224 07/04/202507/04, 07/04/2024, 12/20/2022, Additional history exists DXA [...] this encounter Medical Devices Implanted Type Area Street Inspector Device Identifier Shelf Expiration Date Model / Serial / Lot Hemostatic Clip Res 235cm - [id number] Implanted:Qty: 4 on 04/12/2023 by Amalia Vance MD at ENDOSCOPY [facility] : ENDOSCOPY 02/05/2026 [id number] / / documented as of this encounter Visit Diagnoses Diagnosis Other acute pancreatitis, unspecified complication status- Primary Abdominal pain with radiation to back Pancreas cyst Cyst and pseudocyst of pancreas Type 2 diabetes mellitus with hemoglobin A1c goal of less than 8.0% (HCC) Severe obesity with body mass index (BMI) of 35.0 to 39.9 with serious comorbidity (HCC) Chronic kidney disease, stage 3a (HCC) Screening mammogram for breast cancer documented in this encounter Care Teams Dyer Helper Relationship Specialty Start Date End Date Bhavna Barron CRNP [address] [place] [address] PCP - General Nurse Practitioner 06/25/24 documented as of this encounter
--- OUTSIDE RECORDS SUMMARY | 2024-07-19 04:07 | External Medical Summary | Summary of Care ---
Author Name Unknown Organization [facility] Address [address] [facility] [place] [address] Phone [phone] Care Team Providers Care Bessemer Regulator Name Role Phone Bhavna Barron Primary Care Provider [phone] Reason for Visit * Reason Comments Acute Pancreatitis, dx 06/18 3. Severe abdominal pain, nausea Encounter Details Date Type Department Care Team (Late st Contact Info) Description 07/18/2024 8:40 AM EST Office Visit Family [facility] [address] [place] [address] Bhavna Barron CRNP [address] [place] [address] Other acute pancreatitis, unspecified complication status*; Abdominal pain with radiation to back; Pancreas cyst; Type 2 diabetes mellitus with hemoglobin A1c goal of less than 8.0% ([facility]); Severe obesity with body mass index (BMI) of 35.0 to 39.9 with serious comorbidity ([facility]); Chronic kidney disease, stage 3a ([facility]) Allergies Active Allergy Reactions Criticality Noted Date [...] fatigue 12/20/2022 Coronary artery disease invo lving [place] coronary artery of [place] heart without angina pectoris 08/03/2021 Chronic kidney disease, stage 3a 02/28/2021 Overview: Per CKD protocol Old [place] (myocardial infarction) 01/28/2021 Gastric dysmotility 07/26/2020 History [...] 06/06 EGD , dilated. Swallow study. [facility] Board. 08/2019 FOB/FIT WNL 06/06 EGD [...] mRNA, LNP-s, No Pre serve, 2-Dose Series ([employer]) 05/05/2021,08/02/2020,07/12/2020 COVID-19, MRNA-LNP, PF, 30 M CG/0.3 mL, 12 YRS AND ABOVE, IM ([employer]) 04/02/2023 Covid-19, Mrna, Lnp-s, Pf, B ivalent, 30 Mcg, IM, 12 yrs and above ([employer]) 04/13/2022 PPD 06/25/2006 Pneumococcal Conjugate Vacc, 13 [...] No 04/17/2024 Does the household have a [facility]? (Household - [...] Not on file Not on file [facility] board. Not on file [...] ER for further management, pt will go [facility] -Offered ambulance, pt declined - will drive. [...] 08/13/2024 10:30 AM EST Office Visit Gastroenterology, [facility] [address] [place] [address] Jenni Simons CRNP [address] [place] [phone] 11/13/2024 10:00 AM EDT Office Visit Family Practice [facility] [address] [place] [address] Carl Field MD [address] [place] [address] 06/05/2025 10:00 AM EST Imaging Radiology [facility]st [facility] [address] [place] [phone] Health Maintenance Due Date Last Done Comments Adult Wellness Visit 09/10/2015 09/09/2014 FOBT ANNUALLY,AGES 18-90 08/23/2023 023, 09/07/2021, 07/26/2020, Additional history exists HbA1c 10/27/2024 04/29/2024, 10/16, 01/23/2023, Additional history exists Albumin/Creatinine Ratio 10/29/2024 024, 08/09/2022, 08/09/2021 Depression Screening 11/01/2024 11/02/2023 Diabetic Foot Exam 11/01/2024 11/02/2023, 0 02/03/2022, 12/24/2017 GFR 01/01/2025 07/04/2024, 04/18, 10/30/2023, Additional history exists CKD PHOS USE SMARTSET 62429 04/29/202504/18, 04/29/2024, 08/04/2022 Diabetic Eye Exam 05/01/2025 05/01/2024, 07/25/2022 Mammogram 06/04/2025 06/04/2024, 05/18, 04/27/2022, Additional history exists CKD HGB USE SMARTSET 16007 07/04/202507/04, 07/04/2024, 12/20/2022, Additional history exists DXA [...] this encounter Medical Devices Implanted Type Area Rabbit Fancier Device Identifier Shelf Expiration Date Model / Serial / Lot Hemostatic Clip Res 235cm - [id number] Implanted:Qty: 4 on 04/12/2023 by Amalia Vance MD at ENDOSCOPY [facility] : ENDOSCOPY 02/05/2026 [id number] / / documented as of this encounter [...] cancer documented in this encounter Care Teams Bessemer Regulator Relationship Specialty Start Date End Date Bhavna Barron CRNP [address] [place] [address] PCP - General Nurse Practitioner 06/25/24 documented as of this encounter
[2024-07-19 07:26] LABS: Hematocrit (blood only) 37.3 % (37.0-47.0); Hemoglobin 12.4 g/dl (12.0-16.0); Mean Corpuscular Hemoglobin 31.4 pg (25.0-34.0); Mean Corpuscular Hgb Conc 33.2 g/dL (32.0-36.0); Mean Corpuscular Volume 94.4 fL (80.0-100.0); Mean Platelet Volume 9.8 fL (9.4-12.4); Platelet Count 172 K/uL (130-400); RDW Coefficient of Variation 11.9 % (11.5-14.5); RDW Standard Deviation 41.5 fL (36.4-46.3); Red Blood Count 3.95 M/uL (4.20-5.40); White Blood Count 3.58 K/ul (4.8-10.8)
[2024-07-19 07:43] LABS: BUN Creatinine Ratio 15.3 (10-20); Calcium 8.9 mg/dl (8.6-10.3); Creatinine Clr Calc Pharmacy 87.4 ml/min; Potassium 3.8 mmol/L (3.5-5.1)
--- NOTE | 2024-07-19 07:57 | Hospitalist Progress Note ---
Date of Service July 19, 2024 Assessment & Plan (1) Acute pancreatitis: (2) Pulmonary emboli: (3) HTN (hypertension): (4) Dyslipidemia: (5) GERD (gastroesophageal reflux disease): Plan PE -Admitted to PCU with acute onset of new pulmonary emboli right lower lobe segmental and subsegmental -Lovenox 1 mg/kg started on admission, will continue -does not appear to have fluid collection of blood surrounding the pancreas status post biopsy on 06/30/2024. Will need to discuss DOAC therapy and CM to assist with dc planning with affordability. - Doppler BLE to r/o DVT - no DVT Pancreatitis - GI consulted-Appreciate recs - CT abdomen pelvis reviewed as above - Pain control, IVF, npo poss. UTI - UA concerning for UTI - ceftriaxone started on admission, will cont. for now - follow ucx DVT ppx: teds, scds, lovenox 1mg/kg Q12H FEN/GI: N.p.o., IV NSS CODE: Full Dispo: From home, likely to remain in the hospital x 1-2 days Admission and Anticipated Discharge Date Admission Date: July 18, 2024 Subjective Pt seen in follow up of PE and pancreatitis s/p procedure w/ GI earlier in June Currently sitting up in bed in [facility], pt's present at the bedside Continues to have abd. discomfort radiating to back No shortness of breath No fever, chills Review of Systems Review of Systems: All systems reviewed & are unremarkable except as noted in Subjective Physical Exam Physical Exam: General: awake, alert, no apparent distress, Obese white female Head: Normocephalic, atraumatic ENT: PERRL, EOMI, mucous membranes moist Chest: Clear to auscultation, on room air Cardiac: Regular rate and rhythm, no murmur Abdominal: NABS x 4 quadrants, soft, nondistended, + Epigastric tenderness with palpation, no rebound or guarding Extremities: Normal inspection, moves extremities Psych: Normal mood and affect Neuro: AAO x 3, strength intact bilaterally and rated 5/5, no motor deficits, speech is clear Results & Data Results & Data Vital Signs (Past 12 Hours) Vital Signs Temp Pulse Pulse Resp BP Pulse Ox O2 Del Method 07/19/24 07:30 36.6 C 84 19 181/78 H 96 Room Air 07/19/24 03:13 36.7 C 75 18 184/82 H 96 Room Air 07/18/24 23:40 36.7 C 75 16 178/72 H 92 Room Air 07/18/24 22:04 93 H 07/18/24 20:00 Room Air Laboratory Results 07/19/24 07/18/24 07/18/24 Range/Units 06:47 12:06 10:34 WBC 3.58 L 7.32 (4.8-10.8) K/ul RBC 3.95 L 4.53 (4.20-5.40) M/uL Hgb 12.4 14.2 (12.0-16.0) g/dl Hct 37.3 42.4 (37.0-47.0) % MCV 94.4 93.6 (80.0-100.0) fL MCH 31.4 31.3 (25.0-34.0) pg MCHC 33.2 33.5 (32.0-36.0) g/dL RDW Std Deviation 41.5 40.5 (36.4-46.3) fL RDW Coeff of Nancy 11.9 11.7 (11.5-14.5) % Plt Count 172 213 (130-400) K/uL MPV 9.8 9.6 (9.4-12.4) fL Immature Gran % (Auto) 0.4 % Neut % (Auto) 68.8 % Lymph % (Auto) 20.5 % Delta % (Auto) 7.9 % Eos % (Auto) 2.0 % Baso % (Auto) 0.4 % Neut # (Auto) 5.03 (1.40-6.50) K/uL Lymph # (Auto) 1.50 (1.20-3.40) K/uL Delta # (Auto) 0.58 (0.11-0.59) K/uL Eos # (Auto) 0.15 (0.00-0.50) K/uL Baso # (Auto) 0.03 (0.00-0.20) K/uL Immature Gran # (Auto) 0.03 (0.01-0.20) K/uL Sodium 137 136 (136-145) mmol/L Potassium 3.8 4.0 (3.5-5.1) mmol/L Chloride 103 101 (98-107) mmol/L Carbon Dioxide 28 28 (21-32) mmol/L Anion Gap 6 7 (3-11) BUN 9 14 (6-23) mg/dl Creatinine 0.59 L 0.81 (0.6-1.2) mg/dl Est Cr Clr Drug Dosing 87.4 Not Reportable eGFR 92.76 74.72 BUN/Creatinine Ratio 15.3 17.3 (10-20) Glucose 102 H 164 H (70-99(Fasting)) mg/dl Calcium 8.9 9.6 (8.6-10.3) mg/dl Total Bilirubin 0.6 (0.2-1.0) mg/dl AST 14 (13-39) U/L ALT 23 (7-52) U/L Alkaline Phosphatase 65 (34-104) U/L Troponin I High Sens 3.7 (0-14) pg/ml Total Protein 6.2 (6.0-8.3) gm/dl Albumin 3.8 (3.4-5.0) gm/dl Globulin 2.4 L (2.5-4.0) gm/dl Albumin/Globulin Ratio 1.6 (0.9-2) Lipase 15 (11-82) U/L Urine Color Dark Yellow Urine Appearance Cloudy A (Clear) Urine pH 7.0 (4.5-7.5) Ur Specific Douglass 1.021 (1.000-1.030) Urine Protein 2+ H (Negative) Urine Glucose (UA) Negative (Negative) Urine Ketones Trace H (Negative) Urine Blood Negative (Negative) Urine Nitrite Negative (Negative) Urine Bilirubin Negative (Negative) Urine Urobilinogen Negative (Negative) Ur Leukocyte Esterase 1+ H (Negative) Urine WBC (Auto) 6-10 H (0-5) /hpf Urine RBC (Auto) 0-2 (0-2) /hpf U Hyaline Cast (Auto) 0-2 (0-2) /lpf U Epithel Cells (Auto) 11-20 H (0-2) /hpf Urine Bacteria (Auto) 2+ H (None Seen) Calcium Oxalate Crystal Present A (None Prsent) Urine Mucus Present A (None Prsent) Medications Administered Current Inpatient Medications Acetaminophen (Acetaminophen 325 Mg Tab) 650 mg PO Q4H PRN PRN Reason: Moderate Pain (Scale 4, 5, 6) Stop: 08/17/24 16:59 Last Admin: 07/19/24 03:04 Dose: 650 mg Atorvastatin Calcium (Atorvastatin 20 Mg Tab) 20 mg PO PM [facility] Stop: 08/17/24 20:59 Last Admin: 07/18/24 19:49 Dose: 20 mg Enoxaparin Sodium (Enoxaparin 100 Mg/1ml Syr) 100 mg SQ Q12H [facility] Stop: 08/17/24 17:14 Last Admin: 07/19/24 04:42 Dose: 100 mg Lactated Ringer's (Lr) 1,000 mls @ 100 mls/hr IV .Q10H [facility] Stop: 07/19/24 12:59 Last Infusion: 07/19/24 07:18 Dose: Infused Ceftriaxone Sodium (Rocephin) 1,000 mg in 50 mls @ 100 mls/hr IV Q24H [facility] Stop: 07/23/24 16:59 Last Infusion: 07/18/24 18:19 Dose: Infused Losartan Potassium (Losartan Potassium 50 Mg Tab) 100 mg PO DAILY [facility] Stop: 08/18/24 08:59 Metoprolol Succinate (Metoprolol Succ 50mg Ext Rel Tab) 50 mg PO DAILY [facility] Stop: 08/18/24 08:59 Morphine Sulfate (Morphine Sulfate 2 Mg/Ml Carp) 2 mg IV Q4H PRN PRN Reason: Severe Pain (Scale 7, 8, 9,10) Stop: 08/01/24 16:59 Ondansetron HCl (Ondansetron Inj 2 Mg/Ml 2 Ml Vial) 4 mg IV Q4H PRN PRN Reason: Nausea And Vomiting Stop: 08/17/24 16:59 Last Admin: 07/18/24 22:20 Dose: 4 mg Oxycodone HCl (Oxycodone Hcl Ir 5 Mg Tab (Immediate Release)) 5 mg PO Q4H PRN PRN Reason: Moderate Pain (Scale 4, 5, 6) Stop: 08/01/24 16:59 Last Admin: 07/18/24 19:49 Dose: 5 mg Pantoprazole Sodium (Pantoprazole 40 Mg Tab) 40 mg PO QAM [facility] Stop: 08/18/24 08:59 Verapamil HCl (Verapamil Hcl 180 Mg Tabcr) 360 mg PO DAILY [facility] Stop: 08/18/24 08:59
[2024-07-19] MEDS: LOSARTAN POTASSIUM 50 MG TAB PO SCH (08:42)
[2024-07-19] MEDS: METOPROLOL SUCC 50MG EXT REL TAB PO SCH (08:42)
[2024-07-19] MEDS: VERAPAMIL HCL 180 MG TABCR PO SCH (08:42)
[2024-07-19] MEDS: PANTOprazole 40 MG TAB PO SCH (08:42)
--- NOTE | 2024-07-19 08:55 | Gastroenterology Progress Note ---
Date of Service July 19, 2024 Assessment & Plan (1) Acute pancreatitis: Plan: Back pain could be pancreatic or it could be from laying in bed. A little worried about drop in H/H so need to watch this. Would keep her NPO for today and have her get out of bed some to see what happens with back pain. Will reassess in am. Admission and Anticipated Discharge Date Admission Date: July 18, 2024 Subjective Belly feels better but having left back and flank pain. She says this started after procedure also. H/H down a little Physical Exam Physical Exam: She looks well Constitutional: WD/WN, vitals as above Results & Data Vital Signs (Past 12 Hours) Vital Signs Temp Pulse Pulse Resp BP Pulse Ox O2 Del Method 07/19/24 07:30 36.6 C 84 19 181/78 H 96 Room Air 07/19/24 03:13 36.7 C 75 18 184/82 H 96 Room Air 07/18/24 23:40 36.7 C 75 16 178/72 H 92 Room Air 07/18/24 22:04 93 H
[2024-07-19] MEDS ORDERED: tiZANidine HCL 4 MG TABLET PO PRN (13:45)
[2024-07-19] MEDS: HYDROCODONE/ACETAMOPHEN 5/325MG TAB PO SCH (14:14)
[2024-07-19] MEDS: SODIUM CHLORIDE 0.9% 1,000 ML IV ONE (14:15)
[2024-07-20] MEDS: hydrALAZINE HCL 20 MG/ML VIAL IV ONE ×2 (05:03→23:45)
[2024-07-20 07:44] LABS: Hematocrit (blood only) 41.7 % (37.0-47.0); Hemoglobin 13.8 g/dl (12.0-16.0); Mean Corpuscular Hemoglobin 31.2 pg (25.0-34.0); Mean Corpuscular Hgb Conc 33.1 g/dL (32.0-36.0); Mean Corpuscular Volume 94.1 fL (80.0-100.0); Mean Platelet Volume 9.6 fL (9.4-12.4); Platelet Count 194 K/uL (130-400); RDW Standard Deviation 41.6 fL (36.4-46.3); Red Blood Count 4.43 M/uL (4.20-5.40); White Blood Count 4.18 K/ul (4.8-10.8)
[2024-07-20 08:12] LABS: Albumin Globulin Ratio 1.4 (0.9-2); Albumin Level 3.6 gm/dl (3.4-5.0); BUN Creatinine Ratio 12.3 (10-20); Bilirubin,Total 0.6 mg/dl (0.2-1.0); Calcium 9.4 mg/dl (8.6-10.3); Creatinine Clr Calc Pharmacy 90.5 ml/min; Globulin 2.5 gm/dl (2.5-4.0); Magnesium 1.7 mg/dl (1.7-2.4); Phosphorus 2.9 mg/dl (2.5-4.9); Potassium 3.9 mmol/L (3.5-5.1); Total Protein 6.1 gm/dl (6.0-8.3)
--- NOTE | 2024-07-20 08:32 | Hospitalist Progress Note ---
Date of Service July 20, 2024 Assessment & Plan (1) Acute pancreatitis: (2) Pulmonary emboli: (3) HTN (hypertension): (4) Dyslipidemia: (5) GERD (gastroesophageal reflux disease): Plan PE -Admitted to PCU with acute onset of new pulmonary emboli right lower lobe segmental and subsegmental -Lovenox 1 mg/kg started on admission, will continue -does not appear to have fluid collection of blood surrounding the pancreas s/p biopsy on 06/30/2024. Will need to discuss DOAC therapy and CM to assist with dc planning with affordability. - Doppler BLE to r/o DVT - no DVT Pancreatitis - GI consulted-Appreciate recs - CT abdomen pelvis reviewed as above - Pain control, IVF, npo -> start clear liquids poss. UTI - UA concerning for UTI - ceftriaxone started on admission, will cont. for now - follow ucx DVT ppx: teds, scds, lovenox 1mg/kg Q12H CODE: Full Dispo: From home, likely to remain in the hospital x 1-2 days Admission and Anticipated Discharge Date Admission Date: July 18, 2024 Subjective Pt seen in follow up of PE and pancreatitis s/p procedure w/ GI earlier in June Currently sitting up in chair in [facility], pt's present at the bedside Abd. pain much improved - pain also taking hydrocodone No shortness of breath No fever, chills Seen by GI - started on clear liquid diet Review of Systems Review of Systems: All systems reviewed & are unremarkable except as noted in Subjective Physical Exam Physical Exam: General: awake, alert, no apparent distress, Obese white female Head: Normocephalic, atraumatic ENT: PERRL, EOMI, mucous membranes moist Chest: Clear to auscultation, on room air Cardiac: Regular rate and rhythm, no murmur Abdominal: NABS x 4 quadrants, soft, nondistended, + Epigastric tenderness with palpation - much improved, no rebound or guarding Extremities: Normal inspection, moves extremities Psych: Normal mood and affect Neuro: AAO x 3, strength intact bilaterally and rated 5/5, no motor deficits, speech is clear Results & Data Results & Data Vital Signs (Past 12 Hours) Vital Signs Temp Pulse Pulse Resp BP Pulse Ox O2 Del Method 07/20/24 07:53 36.7 C 79 19 192/84 H 96 Room Air 07/20/24 05:40 75 16 185/84 H 07/20/24 04:37 76 188/98 H 07/20/24 04:30 77 190/102 H 07/20/24 03:00 36.7 C 77 16 192/79 H 94 Room Air 07/19/24 22:37 36.8 C 72 17 180/81 H 94 Room Air 07/19/24 21:49 73 Laboratory Results 07/20/24 Range/Units 07:18 WBC 4.18 L (4.8-10.8) K/ul RBC 4.43 (4.20-5.40) M/uL Hgb 13.8 (12.0-16.0) g/dl Hct 41.7 (37.0-47.0) % MCV 94.1 (80.0-100.0) fL MCH 31.2 (25.0-34.0) pg MCHC 33.1 (32.0-36.0) g/dL RDW Std Deviation 41.6 (36.4-46.3) fL RDW Coeff of Nancy 12.0 (11.5-14.5) % Plt Count 194 (130-400) K/uL MPV 9.6 (9.4-12.4) fL Sodium 137 (136-145) mmol/L Potassium 3.9 (3.5-5.1) mmol/L Chloride 102 (98-107) mmol/L Carbon Dioxide 26 (21-32) mmol/L Anion Gap 9 (3-11) BUN 7 (6-23) mg/dl Creatinine 0.57 L (0.6-1.2) mg/dl Est Cr Clr Drug Dosing 90.5 ml/min eGFR 93.54 BUN/Creatinine Ratio 12.3 (10-20) Glucose 74 (70-99(Fasting)) mg/dl Calcium 9.4 (8.6-10.3) mg/dl Phosphorus 2.9 (2.5-4.9) mg/dl Magnesium 1.7 (1.7-2.4) mg/dl Total Bilirubin 0.6 (0.2-1.0) mg/dl AST 82 H (13-39) U/L ALT 243 H (7-52) U/L Alkaline Phosphatase 102 (34-104) U/L Total Protein 6.1 (6.0-8.3) gm/dl Albumin 3.6 (3.4-5.0) gm/dl Globulin 2.5 (2.5-4.0) gm/dl Albumin/Globulin Ratio 1.4 (0.9-2) Medications Administered Current Inpatient Medications Acetaminophen (Acetaminophen 325 Mg Tab) 650 mg PO Q4H PRN PRN Reason: Moderate Pain (Scale 4, 5, 6) Stop: 08/17/24 16:59 Last Admin: 07/19/24 08:46 Dose: 650 mg Hydrocodone Bitart/Acetaminophen (Hydrocodone/Acetamophen 5/325mg Tab) 1 tab PO Q8H [facility] Stop: 08/02/24 13:44 Last Admin: 07/20/24 04:26 Dose: 1 tab Atorvastatin Calcium (Atorvastatin 20 Mg Tab) 20 mg PO PM [facility] Stop: 08/17/24 20:59 Last Admin: 07/19/24 20:55 Dose: 20 mg Enoxaparin Sodium (Enoxaparin 100 Mg/1ml Syr) 100 mg SQ Q12H [facility] Stop: 08/17/24 17:14 Last Admin: 07/20/24 04:27 Dose: 100 mg Ceftriaxone Sodium (Rocephin) 1,000 mg in 50 mls @ 100 mls/hr IV Q24H [facility] Stop: 07/23/24 16:59 Last Infusion: 07/19/24 17:33 Dose: Infused Losartan Potassium (Losartan Potassium 50 Mg Tab) 100 mg PO DAILY [facility] Stop: 08/18/24 08:59 Last Admin: 07/20/24 07:06 Dose: 100 mg Metoprolol Succinate (Metoprolol Succ 50mg Ext Rel Tab) 50 mg PO DAILY [facility] Stop: 08/18/24 08:59 Last Admin: 07/20/24 07:06 Dose: 50 mg Morphine Sulfate (Morphine Sulfate 2 Mg/Ml Carp) 2 mg IV Q4H PRN PRN Reason: Severe Pain (Scale 7, 8, 9,10) Stop: 08/01/24 16:59 Ondansetron HCl (Ondansetron Inj 2 Mg/Ml 2 Ml Vial) 4 mg IV Q4H PRN PRN Reason: Nausea And Vomiting Stop: 08/17/24 16:59 Last Admin: 07/19/24 20:55 Dose: 4 mg Pantoprazole Sodium (Pantoprazole 40 Mg Tab) 40 mg PO QAM [facility] Stop: 08/18/24 08:59 Last Admin: 07/20/24 07:06 Dose: 40 mg Tizanidine HCl (Tizanidine Hcl 4 Mg Tablet) 4 mg PO DAILY PRN PRN Reason: muscle spasms Stop: 08/18/24 13:44 Verapamil HCl (Verapamil Hcl 180 Mg Tabcr) 360 mg PO DAILY [facility] Stop: 08/18/24 08:59 Last Admin: 07/20/24 07:06 Dose: 360 mg
--- NOTE | 2024-07-20 09:27 | Gastroenterology Progress Note ---
Date of Service July 20, 2024 Assessment & Plan (1) Acute pancreatitis: Plan: She seems to be improving from pancreatitis standpoint. Nausea may be related to meds. Will start liquids Admission and Anticipated Discharge Date Admission Date: July 18, 2024 Subjective Feeling better with regards to pain. It is all gone. Now with nausea. Wants to try liquids. Labs are good Physical Exam Physical Exam: She looks well Constitutional: WD/WN, vitals as above Results & Data Vital Signs (Past 12 Hours) Vital Signs Temp Pulse Pulse Resp BP Pulse Ox O2 Del Method 07/20/24 08:29 85 07/20/24 07:53 36.7 C 79 19 192/84 H 96 Room Air 07/20/24 05:40 75 16 185/84 H 07/20/24 04:37 76 188/98 H 07/20/24 04:30 77 190/102 H 07/20/24 03:00 36.7 C 77 16 192/79 H 94 Room Air 07/19/24 22:37 36.8 C 72 17 180/81 H 94 Room Air 07/19/24 21:49 73
[2024-07-20] MEDS: HYDROCODONE/ACETAMOPHEN 5/325MG TAB PO PRN (18:34)
[2024-07-21 06:08] LABS: Hemoglobin 13.9 g/dl (12.0-16.0); Mean Corpuscular Hemoglobin 31.2 pg (25.0-34.0); Mean Corpuscular Hgb Conc 33.9 g/dL (32.0-36.0); Mean Corpuscular Volume 92.1 fL (80.0-100.0); Mean Platelet Volume 9.5 fL (9.4-12.4); Platelet Count 187 K/uL (130-400); RDW Coefficient of Variation 11.9 % (11.5-14.5); Red Blood Count 4.45 M/uL (4.20-5.40); White Blood Count 4.31 K/ul (4.8-10.8)
[2024-07-21 06:21] LABS: Albumin Globulin Ratio 1.5 (0.9-2); Albumin Level 3.5 gm/dl (3.4-5.0); BUN Creatinine Ratio 12.3 (10-20); Bilirubin,Total 0.4 mg/dl (0.2-1.0); Calcium 9.2 mg/dl (8.6-10.3); Globulin 2.3 gm/dl (2.5-4.0); Magnesium 1.7 mg/dl (1.7-2.4); Phosphorus 2.7 mg/dl (2.5-4.9); Potassium 3.3 mmol/L (3.5-5.1); Total Protein 5.8 gm/dl (6.0-8.3)
[2024-07-21] MEDS: PROMETHAZINE 6.25 MG/50.25 ML BAG IV STA (08:51)
[2024-07-21] MEDS: POTASSIUM CHLORIDE / WTR 10 MEQ/100 ML PLCT IV SCH (09:11)
--- NOTE | 2024-07-21 11:44 | Hospitalist Progress Note ---
Date of Service July 21, 2024 Assessment & Plan (1) Acute pancreatitis: (2) Pulmonary emboli: (3) HTN (hypertension): (4) Dyslipidemia: (5) GERD (gastroesophageal reflux disease): Plan PE -Admitted to PCU with acute onset of new pulmonary emboli right lower lobe segmental and subsegmental -Lovenox 1 mg/kg started on admission, will continue -does not appear to have fluid collection of blood surrounding the pancreas s/p biopsy on 06/30/2024. Will need to discuss DOAC therapy and CM to assist with dc planning with affordability. - Doppler BLE to r/o DVT - no DVT Pancreatitis - GI consulted-Appreciate recs - CT abdomen pelvis reviewed as above - Pain control, IVF, npo -> started clear liquids, ghada w/ nausea poss. UTI - UA concerning for UTI - ceftriaxone started on admission, will cont. for now - follow ucx DVT: lovenox 1mg/kg Q12H CODE: Full Dispo: From home, likely to remain in the hospital x 1-2 days Admission and Anticipated Discharge Date Admission Date: July 18, 2024 Subjective Pt seen in follow up of PE and pancreatitis s/p procedure w/ GI earlier in June Currently laying in bed Abd. pain much improved - but pt has a lot of nausea No shortness of breath No fever, chills Seen by GI - started on clear liquid diet yesterday LFTs up from previous but stable from yesterday - contacted GI again to discuss Review of Systems Review of Systems: All systems reviewed & are unremarkable except as noted in Subjective Physical Exam Physical Exam: General: awake, alert, no apparent distress, Obese white female Head: Normocephalic, atraumatic ENT: PERRL, EOMI, mucous membranes moist Chest: Clear to auscultation, on room air Cardiac: Regular rate and rhythm, no murmur Abdominal: NABS x 4 quadrants, soft, nondistended, + mild Epigastric tenderness with palpation - much improved, no rebound or guarding Extremities: Normal inspection, moves extremities Psych: Normal mood and affect Neuro: AAO x 3, strength intact bilaterally and rated 5/5, no motor deficits, speech is clear Results & Data Results & Data Vital Signs (Past 12 Hours) Vital Signs Temp Pulse Pulse Resp BP Pulse Ox O2 Del Method 07/21/24 11:29 36.8 C 84 18 145/73 H 91 Room Air 07/21/24 07:53 36.8 C 90 19 180/94 H 95 Room Air 07/21/24 07:14 88 07/21/24 03:35 36.6 C 80 17 173/78 H 95 Room Air 07/21/24 00:32 180/81 H 07/21/24 00:11 65 Laboratory Results 07/21/24 Range/Units 05:43 WBC 4.31 L (4.8-10.8) K/ul RBC 4.45 (4.20-5.40) M/uL Hgb 13.9 (12.0-16.0) g/dl Hct 41.0 (37.0-47.0) % MCV 92.1 (80.0-100.0) fL MCH 31.2 (25.0-34.0) pg MCHC 33.9 (32.0-36.0) g/dL RDW Std Deviation 40.0 (36.4-46.3) fL RDW Coeff of Nancy 11.9 (11.5-14.5) % Plt Count 187 (130-400) K/uL MPV 9.5 (9.4-12.4) fL Sodium 136 (136-145) mmol/L Potassium 3.3 L (3.5-5.1) mmol/L Chloride 103 (98-107) mmol/L Carbon Dioxide 26 (21-32) mmol/L Anion Gap 7 (3-11) BUN 7 (6-23) mg/dl Creatinine 0.57 L (0.6-1.2) mg/dl Est Cr Clr Drug Dosing 90.0 ml/min eGFR 93.54 BUN/Creatinine Ratio 12.3 (10-20) Glucose 125 H (70-99(Fasting)) mg/dl Calcium 9.2 (8.6-10.3) mg/dl Phosphorus 2.7 (2.5-4.9) mg/dl Magnesium 1.7 (1.7-2.4) mg/dl Total Bilirubin 0.4 (0.2-1.0) mg/dl AST 83 H (13-39) U/L ALT 241 H (7-52) U/L Alkaline Phosphatase 103 (34-104) U/L Total Protein 5.8 L (6.0-8.3) gm/dl Albumin 3.5 (3.4-5.0) gm/dl Globulin 2.3 L (2.5-4.0) gm/dl Albumin/Globulin Ratio 1.5 (0.9-2) Medications Administered Current Inpatient Medications Acetaminophen (Acetaminophen 325 Mg Tab) 650 mg PO Q4H PRN PRN Reason: Moderate Pain (Scale 4, 5, 6) Stop: 08/17/24 16:59 Last Admin: 07/20/24 17:54 Dose: 650 mg Hydrocodone Bitart/Acetaminophen (Hydrocodone/Acetamophen 5/325mg Tab) 1 tab PO Q8H PRN PRN Reason: pain Stop: 08/02/24 13:44 Last Admin: 07/20/24 18:34 Dose: 1 tab Atorvastatin Calcium (Atorvastatin 20 Mg Tab) 20 mg PO PM [facility] Stop: 08/17/24 20:59 Last Admin: 07/20/24 21:10 Dose: Not Given Enoxaparin Sodium (Enoxaparin 100 Mg/1ml Syr) 100 mg SQ Q12H [facility] Stop: 08/17/24 17:14 Last Admin: 07/21/24 05:31 Dose: 100 mg Ceftriaxone Sodium (Rocephin) 1,000 mg in 50 mls @ 100 mls/hr IV Q24H [facility] Stop: 07/23/24 16:59 Last Infusion: 07/20/24 16:40 Dose: Infused Losartan Potassium (Losartan Potassium 50 Mg Tab) 100 mg PO DAILY [facility] Stop: 08/18/24 08:59 Last Admin: 07/21/24 07:55 Dose: 100 mg Metoprolol Succinate (Metoprolol Succ 50mg Ext Rel Tab) 50 mg PO DAILY [facility] Stop: 08/18/24 08:59 Last Admin: 07/21/24 07:55 Dose: 50 mg Morphine Sulfate (Morphine Sulfate 2 Mg/Ml Carp) 2 mg IV Q4H PRN PRN Reason: Severe Pain (Scale 7, 8, 9,10) Stop: 08/01/24 16:59 Ondansetron HCl (Ondansetron Inj 2 Mg/Ml 2 Ml Vial) 4 mg IV Q4H PRN PRN Reason: Nausea And Vomiting Stop: 08/17/24 16:59 Last Admin: 07/21/24 05:34 Dose: 4 mg Pantoprazole Sodium (Pantoprazole 40 Mg Tab) 40 mg PO QAM [facility] Stop: 08/18/24 08:59 Last Admin: 07/21/24 07:55 Dose: 40 mg Tizanidine HCl (Tizanidine Hcl 4 Mg Tablet) 4 mg PO DAILY PRN PRN Reason: muscle spasms Stop: 08/18/24 13:44 Verapamil HCl (Verapamil Hcl 180 Mg Tabcr) 360 mg PO DAILY [facility] Stop: 08/18/24 08:59 Last Admin: 07/21/24 07:55 Dose: 360 mg
--- NOTE | 2024-07-21 13:21 | Communication Note ---
Date of Service: July 21, 2024 Was contacted by hospitalist regarding this patient for further input. This patient is recovering from pancreatitis that she developed after recent EU S/FNA at a [facility] on 06/30/2024 to evaluated pancreatic cystic lesions. She had imaging studies here that showed a pancreatitis with small fluid collection in the pancreatic tail consistent with post-biopsy pancreatitis phlegmon. She was improving over the weekend. LFTs bumped ever so slightly on 07/20 to an AST of 82, ALT 243. On 07/21 AST 83 and ALT 241. While improving, she endorses nausea. Would continue to monitor LFTs. If LFT elevation worsens/persists, can consider repeating imaging (last CT on 07/18/24). Treat nausea supportively. CT abdomen/pelvis: IMPRESSION: 1. Right lower lobe segmental and subsegmental pulmonary emboli. 2. Findings suggestive of mild acute pancreatitis of the pancreatic tail with intermediate density 2.1 cm pancreatic tail lesion which is new from the prior exam abutting the adjacent greater curvature of the stomach. Differential considerations include a solid versus complex primary cystic pancreatic lesion, complex pseudocyst versus post-biopsy collection. Follow-up recommended. 3. Hypodense 1.9 cm lesion posterior to the pancreatic tail re-demonstrated which is similar in appearance to the study from 12/22/2022. 4. No drainable peripancreatic fluid collections or pancreatic ductal dilation. 5. Colonic diverticulosis without acute diverticulitis.
[2024-07-21] MEDS ORDERED: ONDANSETRON INJ 2 MG/ML 2 ML VIAL IV PRN (13:23)
[2024-07-21] MEDS: SODIUM CHLORIDE 0.9% 1,000 ML IV ONE (14:15)
[2024-07-21 17:23] LABS: Hep B Surface Ag with confirm Negative (Negative)
[2024-07-21 17:28] LABS: Hep C Ab Rflx HepCQuant RNA Negative (Negative)
[2024-07-21] MEDS: PROMETHAZINE 6.25 MG/50.25 ML BAG IV PRN (20:27)
[2024-07-22 06:08] LABS: Hematocrit (blood only) 39.8 % (37.0-47.0); Hemoglobin 13.7 g/dl (12.0-16.0); Mean Corpuscular Hemoglobin 32.5 pg (25.0-34.0); Mean Corpuscular Hgb Conc 34.4 g/dL (32.0-36.0); Mean Corpuscular Volume 94.5 fL (80.0-100.0); Mean Platelet Volume 9.6 fL (9.4-12.4); Platelet Count 178 K/uL (130-400); RDW Coefficient of Variation 12.3 % (11.5-14.5); RDW Standard Deviation 42.9 fL (36.4-46.3); Red Blood Count 4.21 M/uL (4.20-5.40); White Blood Count 3.05 K/ul (4.8-10.8)
[2024-07-22 06:31] LABS: Potassium 3.2 mmol/L (3.5-5.1)
[2024-07-22 06:32] LABS: Albumin Globulin Ratio 1.7 (0.9-2); Albumin Level 3.3 gm/dl (3.4-5.0); Bilirubin,Total 0.4 mg/dl (0.2-1.0); Creatinine Clr Calc Pharmacy 78.8 ml/min; Total Protein 5.3 gm/dl (6.0-8.3)
[2024-07-22 08:04] LABS: BUN Creatinine Ratio 12.1 (10-20); Magnesium 1.6 mg/dl (1.7-2.4); Phosphorus 2.8 mg/dl (2.5-4.9)
[2024-07-22] MEDS: POTASSIUM CHLORIDE / WTR 10 MEQ/100 ML PLCT IV SCH (08:43)
[2024-07-22] MEDS: MAGNESIUM SULFATE / D5W 1 GM/100 ML BAG IV ONE (08:44)
--- NOTE | 2024-07-22 16:38 | Hospitalist Progress Note ---
Date of Service July 22, 2024 Assessment & Plan (1) Acute pancreatitis: (2) Pulmonary emboli: (3) HTN (hypertension): (4) Dyslipidemia: (5) GERD (gastroesophageal reflux disease): Plan PE -Admitted to PCU with acute onset of new pulmonary emboli right lower lobe segmental and subsegmental -Lovenox 1 mg/kg started on admission, will continue -does not appear to have fluid collection of blood surrounding the pancreas s/p biopsy on 06/30/2024. -Will need to discuss DOAC therapy and CM to assist with dc planning with affordability. - Doppler BLE to r/o DVT - no DVT Pancreatitis - GI consulted-Appreciate recs - CT abdomen pelvis reviewed as above - Pain control, IVF, npo -> started clear liquids then developed nausea - Today says nausea has much improved and would like diet advanced. LFTs down from yesterday. If not improved tmrw, consider re-imaging as per GI note poss. UTI - UA concerning for UTI - ceftriaxone started on admission, will cont. for now - follow ucx DVT: lovenox 1mg/kg Q12H CODE: Full Dispo: From home, likely to remain in the hospital x 1-2 days Admission and Anticipated Discharge Date Admission Date: July 18, 2024 Subjective Pt seen in follow up of PE and pancreatitis s/p procedure w/ GI earlier in June Currently sitting up in chair in NAD Abd. pain much improved and nausea also improved - pt is asking about advancing her diet No shortness of breath No fever, chills Seen by GI LFTs down Review of Systems Review of Systems: All systems reviewed & are unremarkable except as noted in Subjective Physical Exam Physical Exam: General: awake, alert, no apparent distress, Obese white female Head: Normocephalic, atraumatic ENT: PERRL, EOMI, mucous membranes moist Chest: Clear to auscultation, on room air Cardiac: Regular rate and rhythm, no murmur Abdominal: NABS x 4 quadrants, soft, nondistended, + mild Epigastric tenderness with palpation - much improved Extremities: Normal inspection, moves extremities Psych: Normal mood and affect Neuro: AAO x 3, strength intact bilaterally and rated 5/5, no motor deficits, speech is clear Results & Data Results & Data Vital Signs (Past 12 Hours) Vital Signs Temp Pulse Pulse Resp BP Pulse Ox O2 Del Method 07/22/24 15:44 93 H 07/22/24 15:26 36.8 C 80 18 137/74 93 Room Air 07/22/24 11:50 36.7 C 84 18 143/84 H 93 Room Air 07/22/24 10:13 84 07/22/24 07:35 36.8 C 88 18 166/72 H 96 Room Air 07/22/24 04:42 36.8 C 92 H 16 171/51 H 94 Room Air Laboratory Results 07/22/24 07/21/24 Range/Units 05:32 15:29 WBC 3.05 L (4.8-10.8) K/ul RBC 4.21 (4.20-5.40) M/uL Hgb 13.7 (12.0-16.0) g/dl Hct 39.8 (37.0-47.0) % MCV 94.5 (80.0-100.0) fL MCH 32.5 (25.0-34.0) pg MCHC 34.4 (32.0-36.0) g/dL RDW Std Deviation 42.9 (36.4-46.3) fL RDW Coeff of Nancy 12.3 (11.5-14.5) % Plt Count 178 (130-400) K/uL MPV 9.6 (9.4-12.4) fL Sodium 140 (136-145) mmol/L Potassium 3.2 L (3.5-5.1) mmol/L Chloride 107 (98-107) mmol/L Carbon Dioxide 25 (21-32) mmol/L Anion Gap 8 (3-11) BUN 8 (6-23) mg/dl Creatinine 0.66 (0.6-1.2) mg/dl Est Cr Clr Drug Dosing 78.8 ml/min eGFR 90.29 BUN/Creatinine Ratio 12.1 (10-20) Glucose 104 H (70-99(Fasting)) mg/dl Calcium 9.0 (8.6-10.3) mg/dl Phosphorus 2.8 (2.5-4.9) mg/dl Magnesium 1.6 L (1.7-2.4) mg/dl Total Bilirubin 0.4 (0.2-1.0) mg/dl AST 40 H (13-39) U/L ALT 167 H (7-52) U/L Alkaline Phosphatase 97 (34-104) U/L Total Protein 5.3 L (6.0-8.3) gm/dl Albumin 3.3 L (3.4-5.0) gm/dl Globulin 2.0 L (2.5-4.0) gm/dl Albumin/Globulin Ratio 1.7 (0.9-2) Hep Bs Antigen Negative (Negative) Hepatitis C Antibody Negative (Negative) Medications Administered Current Inpatient Medications Acetaminophen (Acetaminophen 325 Mg Tab) 650 mg PO Q4H PRN PRN Reason: Moderate Pain (Scale 4, 5, 6) Stop: 08/17/24 16:59 Last Admin: 07/20/24 17:54 Dose: 650 mg Hydrocodone Bitart/Acetaminophen (Hydrocodone/Acetamophen 5/325mg Tab) 1 tab PO Q8H PRN PRN Reason: pain Stop: 08/02/24 13:44 Last Admin: 07/20/24 18:34 Dose: 1 tab Atorvastatin Calcium (Atorvastatin 20 Mg Tab) 20 mg PO PM [facility] Stop: 08/17/24 20:59 Last Admin: 07/21/24 20:25 Dose: 20 mg Enoxaparin Sodium (Enoxaparin 100 Mg/1ml Syr) 100 mg SQ Q12H [facility] Stop: 08/17/24 17:14 Last Admin: 07/22/24 04:54 Dose: 100 mg Ceftriaxone Sodium (Rocephin) 1,000 mg in 50 mls @ 100 mls/hr IV Q24H [facility] Stop: 07/23/24 16:59 Last Infusion: 07/21/24 17:09 Dose: Infused Promethazine HCl (Phenergan) 6.25 mg in 50.25 mls @ 201 mls/hr IV Q6H PRN PRN Reason: Nausea And Vomiting Stop: 08/20/24 13:22 Last Infusion: 07/21/24 20:48 Dose: Infused Losartan Potassium (Losartan Potassium 50 Mg Tab) 100 mg PO DAILY [facility] Stop: 08/18/24 08:59 Last Admin: 07/22/24 07:24 Dose: 100 mg Metoprolol Succinate (Metoprolol Succ 50mg Ext Rel Tab) 50 mg PO DAILY [facility] Stop: 08/18/24 08:59 Last Admin: 07/22/24 07:24 Dose: 50 mg Morphine Sulfate (Morphine Sulfate 2 Mg/Ml Carp) 2 mg IV Q4H PRN PRN Reason: Severe Pain (Scale 7, 8, 9,10) Stop: 08/01/24 16:59 Ondansetron HCl (Ondansetron Inj 2 Mg/Ml 2 Ml Vial) 2 mg IV Q4H PRN PRN Reason: Nausea And Vomiting Stop: 08/17/24 16:59 Pantoprazole Sodium (Pantoprazole 40 Mg Tab) [facility] [place]: 08/18/24 08:59 Last Admin: 07/22/24 07:24 Dose: 40 mg Tizanidine HCl (Tizanidine Hcl 4 Mg Tablet) 4 mg PO DAILY PRN PRN Reason: muscle spasms Stop: 08/18/24 13:44 Verapamil HCl (Verapamil Hcl 180 Mg Tabcr) 360 mg PO DAILY [facility] Stop: 08/18/24 08:59 Last Admin: 07/22/24 07:23 Dose: 360 mg
[2024-07-22] MEDS: hydrALAZINE HCL 20 MG/ML VIAL IV ONE (20:38)
[2024-07-23 06:12] LABS: Hematocrit (blood only) 40.2 % (37.0-47.0); Hemoglobin 13.6 g/dl (12.0-16.0); Mean Corpuscular Hemoglobin 31.6 pg (25.0-34.0); Mean Corpuscular Hgb Conc 33.8 g/dL (32.0-36.0); Mean Corpuscular Volume 93.3 fL (80.0-100.0); Mean Platelet Volume 9.4 fL (9.4-12.4); Platelet Count 168 K/uL (130-400); RDW Coefficient of Variation 12.2 % (11.5-14.5); RDW Standard Deviation 42.5 fL (36.4-46.3); Red Blood Count 4.31 M/uL (4.20-5.40); White Blood Count 3.05 K/ul (4.8-10.8)
[2024-07-23 06:31] LABS: Albumin Globulin Ratio 1.6 (0.9-2); Albumin Level 3.4 gm/dl (3.4-5.0); BUN Creatinine Ratio 11.1 (10-20); Bilirubin,Total 0.4 mg/dl (0.2-1.0); Calcium 9.2 mg/dl (8.6-10.3); Creatinine Clr Calc Pharmacy 81.1 ml/min; Globulin 2.1 gm/dl (2.5-4.0); Magnesium 1.8 mg/dl (1.7-2.4); Phosphorus 3.1 mg/dl (2.5-4.9); Potassium 3.4 mmol/L (3.5-5.1); Total Protein 5.5 gm/dl (6.0-8.3)
[2024-07-23] MEDS: POTASSIUM CHLORIDE CRTAB 20 MEQ TABCR PO STA (11:01)
--- NOTE | 2024-07-23 13:35 | Hospitalist Progress Note ---
Date of Service July 23, 2024 Assessment & Plan (1) Acute pancreatitis: (2) Pulmonary emboli: (3) HTN (hypertension): (4) Dyslipidemia: (5) GERD (gastroesophageal reflux disease): Plan This is a 79-year-old female with PMHx of acute pancreatitis, DM type II, CKD stage III, obesity, who presented to her family medicine practice this morning due to worsening abdominal pain over the past 2 weeks status post EGD with biopsy on 06/30/2024 for pancreatic cyst workup. Abdominal Pain Elevated Liver enzymes Pancreatitis pt presented with abd pain recent biopsy for pancreatic lesion workup CT abd/pelvis concerning for acute pancreatitis Treated with pain control, IV fluids, antiemetics and slow advancement of diet from NPO trial of a lidocaine patch for the flank pain GI consulted, appreciate recs Pulmonary Emboli CT abd/pelvis noting presence of pulmonary emboli CTA chest noting acute PE w/o heart strain Consider echo Doppler bilateral lower extremities with no DVT currently being treated with Lovenox Transition to po Eliquis Currently on RA Hypokalemia Hypomagnesemia replete as needed Possible UTI UA initially concerning for UTI Urine culture grew only lactobacillus, typical vaginal tony, likely contaminant Ceftriaxone started on admission, has since been discontinued. Diet: advance as tolerated DVT: lovenox 1mg/kg Q12H, transition to Eliquis CODE: Full Dispo: Home once medially stable Admission and Anticipated Discharge Date Admission Date: July 18, 2024 Subjective pt was seen sitting in chair at bedside notes still having the left sided flank pain Agreeable to advancing the diet Review of Systems Review of Systems: All systems reviewed & are unremarkable except as noted in Subjective Physical Exam Physical Exam: General: Alert, oriented. No acute distress Skin: No noted rashes or bruises Psych: Appropriate mood and affect HEENT: NC/AT CV: RRR Resp: Breath sounds clear bilaterally, no increased effort of breathing Abdomen: Soft, tender Extremities: No edema in lower extremities bilaterally. Results & Data Results & Data Vital Signs (Past 12 Hours) Vital Signs Temp Pulse Pulse Resp BP Pulse Ox O2 Del Method 07/23/24 11:17 36.6 C 86 18 127/67 95 Room Air 07/23/24 08:05 89 07/23/24 07:39 36.6 C 87 18 162/74 H 93 Room Air 07/23/24 03:56 36.7 C 95 H 18 161/83 H 96 Room Air Diagnostic Findings Abdomen/Pelvis CT 07/18/24 11:[address] WITH IV CONTRAST CT DOSE: 1447.39 mGy.cm HISTORY: Acute epigastric abdominal pain with reported pancreatitis abd pain, recent pacreas biopsy TECHNIQUE: Multiaxial CT images of the abdomen and pelvis were performed following the IV administration of 94 cc of Optiray, A dose lowering technique was utilized adhering to the principles of ALARA. COMPARISON STUDY: 12/22/2022, 10/28/2022, 03/23/2009, chest CT 10/28/2018 FINDINGS: Segmental and subsegmental right lower lobe pulmonary emboli incidentally noted. Small Bochdalek hernias. No pneumatosis or pneumoperitoneum. Unremarkable spleen, adrenal glands and liver. Cholecystectomy with intrahepatic and extrahepatic biliary ductal dilation which is likely postsurgical. The common bile duct measures 1.4 cm. Ovoid circumscribed centrally hypodense lesion posterior to the pancreatic tail on image 121 series 3 redemonstrated in retrospect this is unchanged dating back to the 12/22/2022 study and is new from 10/28/2018. There is mild interstitial and peripancreatic inflammatory stranding adjacent to the pancreatic tail. Intermediate density 2.1 x 1.7 x 1.5 cm lesion involves the superior aspect of the pancreatic tail on image 107 series 3 which is new from the prior studies. This abuts the adjacent greater curvature of the stomach. No pancreatic ductal dilation. No drainable fluid collections. Mild nonspecific bilateral perinephric stranding. Mild cortical thinning of the kidneys without hydronephrosis. Probable small cyst of the lateral interpolar left kidney. Unremarkable urinary bladder. Hysterectomy. The aorta and IVC are unremarkable. No lymphadenopathy. Small hiatal hernia. Colonic diverticulosis without acute diverticulitis. Sigmoid colon anastomotic suture. Prior ventral abdominal wall herniorrhaphy repair. No acute fracture. IMPRESSION: 1. Right lower lobe segmental and subsegmental pulmonary emboli. 2. Findings suggestive of mild acute pancreatitis of the pancreatic tail with intermediate density 2.1 cm pancreatic tail lesion which is new from the prior exam abutting the adjacent greater curvature of the stomach. Differential considerations include a solid versus complex primary cystic pancreatic lesion, complex pseudocyst versus post-biopsy collection. Follow-up recommended. 3. Hypodense 1.9 cm lesion posterior to the pancreatic tail redemonstrated which is similar in appearance to the study from 12/22/2022. 4. No drainable peripancreatic fluid collections or pancreatic ductal dilation. 5. Colonic diverticulosis without acute diverticulitis. ACT 112: Negative or not required by law. The above report was generated using voice recognition software. It may contain grammatical, syntax or spelling errors. Electronically signed by: Esequiel Gaston M.D. 07/18/2024 12:28 PM Chest CTA 07/18/24 13:27 CT angio chest PE protocol CT DOSE: 966.48 mGy.cm HISTORY: PE. TECHNIQUE: Multiple CTA images of the chest were obtained after the intravenous administration of 112 ml Optiray. Coronal and sagittal MIPS were obtained from the axial data set and were submitted for review. All measurements were obtained according to NASCET criteria. A dose lowering technique was utilized adhering to the principles of ALARA. COMPARISON STUDY: 10/28/2018 FINDINGS: There is no pulmonary consolidation or pleural effusion. No pneumothorax. No enlarged adenopathy. No pericardial effusion. No thoracic aortic dissection or aneurysm. There is small volume acute pulmonary embolism at a few subsegmental right upper and lower lobe pulmonary artery branches. RV LV ratio is less than 1. No acute osseous findings. IMPRESSION: Small volume acute pulmonary embolism with no evidence of right heart strain. ACT 112: Negative or not required by law. The above report was generated using voice recognition software. It may contain grammatical, syntax or spelling errors. Electronically signed by: Robson Frank M.D. 07/18/2024 2:15 PM Venous Doppler Study 07/18/24 14:06 BILATERAL LOWER EXTREMITY VENOUS DOPPLER HISTORY: Screening the patient with pulmonary emboli Eval for DVT, confirmed PE COMPARISON STUDY: CTA chest of same day FINDINGS: There is normal compressibility, flow, and augmentation within the bilateral lower extremity deep venous systems. IMPRESSION: No DVT within the right or left lower extremity. ACT 112: Negative or not required by law. Electronically signed by: Esequiel Gaston M.D. 07/18/2024 3:46 PM
[2024-07-23 14:46] LABS: Hepatitis A Antibody IgM NON-REACTIVE (NON-REACTIVE); Hepatitis B Core Antibody IgM NON-REACTIVE (NON-REACTIVE)
[2024-07-23] MEDS: LIDOCAINE 5% 1 PATCH TD SCH (17:42)
[2024-07-24 07:57] LABS: Basophils # (auto) 0.03 K/uL (0.00-0.20); Basophils % (auto) 0.9 %; Eosinophils # (auto) 0.27 K/uL (0.00-0.50); Hematocrit (blood only) 39.7 % (37.0-47.0); Hemoglobin 13.6 g/dl (12.0-16.0); Immature Granulocytes # (auto) 0.01 K/uL (0.01-0.20); Immature Granulocytes % (auto) 0.3 %; Lymphocytes # (auto) 1.14 K/uL (1.20-3.40); Lymphocytes % (auto) 33.6 %; Mean Corpuscular Hgb Conc 34.3 g/dL (32.0-36.0); Mean Corpuscular Volume 93.4 fL (80.0-100.0); Monocytes # (auto) 0.45 K/uL (0.11-0.59); Monocytes % (auto) 13.3 %; Neutrophils # (auto) 1.49 K/uL (1.40-6.50); Neutrophils % (auto) 43.9 %; Platelet Count 190 K/uL (130-400); RDW Coefficient of Variation 12.4 % (11.5-14.5); RDW Standard Deviation 42.3 fL (36.4-46.3); Red Blood Count 4.25 M/uL (4.20-5.40); White Blood Count 3.39 K/ul (4.8-10.8)
[2024-07-24 08:21] LABS: Albumin Globulin Ratio 1.7 (0.9-2); Albumin Level 3.5 gm/dl (3.4-5.0); Bilirubin,Total 0.5 mg/dl (0.2-1.0); Calcium 9.5 mg/dl (8.6-10.3); Creatinine Clr Calc Pharmacy 73.6 ml/min; Globulin 2.1 gm/dl (2.5-4.0); Magnesium 1.8 mg/dl (1.7-2.4); Phosphorus 3.3 mg/dl (2.5-4.9); Potassium 3.5 mmol/L (3.5-5.1); Total Protein 5.6 gm/dl (6.0-8.3)
--- NOTE | 2024-07-24 12:48 | Discharge Summary ---
Discharge Summary Date of Service July 24, 2024 Principal Dx & Hospital Course #1 = Principal Diagnosis (1) Acute pancreatitis: (2) Pulmonary emboli: (3) HTN (hypertension): (4) Dyslipidemia: (5) GERD (gastroesophageal reflux disease): Plan This is a 79-year-old female with PMHx of acute pancreatitis, DM type II, CKD stage III, obesity, who presented to her family medicine practice this morning due to worsening abdominal pain over the past 2 weeks status post EGD with biopsy on 06/30/2024 for pancreatic cyst workup. Abdominal Pain Elevated Liver enzymes Pancreatitis pt presented with abd pain recent biopsy with GI for pancreatic lesion workup CT abd/pelvis concerning for acute pancreatitis Treated with pain control, IV fluids, antiemetics and slow advancement of diet from NPO. patient was tolerating a low fiber, soft diet on discharge. trial of a lidocaine patch for the flank pain GI consulted, recommended/stated the following: "This patient is recovering from pancreatitis that she developed after recent EUS/FNA at a [facility] on 06/30/2024 to evaluated pancreatic cystic lesions. She had imaging studies here that showed a pancreatitis with small fluid collection in the pancreatic tail consistent with post-biopsy pancreatitis phlegmon. She was improving over the weekend. LFTs bumped ever so slightly on 07/20 to an AST of 82, ALT 243. On 07/21 AST 83 and ALT 241. While improving, she endorses nausea. Would continue to monitor LFTs. If LFT elevation worsens/persists, can consider repeating imaging (last CT on 07/18/24). Treat nausea supportively..." On the day of discharge patient was tolerating a low fiber, soft diet. Her AST and ALT had improved to normal levels. She was discharged with as needed Zofran and encouraged to follow-up with her PCP as well as her vibrator equipment tester. Pulmonary Emboli CT abd/pelvis noting presence of pulmonary emboli CTA chest noting acute PE w/o heart strain Echo noting EF of 65 to 70%, grade 1 diastolic dysfunction, moderate concentric left ventricular hypertrophy and no suggestion of pulmonary hypertension. Doppler bilateral lower extremities with no DVT Was treated with Lovenox Transitioned to po Eliquis On the day of discharge patient was on room air in no acute distress. She was discharged with an Eliquis starter kit. Close PCP follow-up after discharge. Hypokalemia Hypomagnesemia replete as needed Possible UTI UA initially concerning for UTI Urine culture grew only lactobacillus, typical vaginal tony, likely contaminant Ceftriaxone started on admission, has since been discontinued. Notes For Next Care Provider Medication Changes From Visit Maximilianis starter pack Zofran as needed Admission HPI Per Admitting Provider This is a 79-year-old female with PMHx of acute pancreatitis, DM type II, CKD stage III, obesity, who presented to her family medicine practice this morning due to worsening abdominal pain over the past 2 weeks status post EGD with biopsy on 06/30/2024 for pancreatic cyst workup. CT on 07/04/24 confirmed mild acute pancreatitis. She has had previous episodes of pancreatitis precipitated by a gallbladder attack several years ago. She admits to being less active than normal since having biopsy completed. She has been spending a large portion of her time in recliner/seated.She has been attempting to manage in the outpatient setting with hydrocodone/acetaminophen for pain however it is progressively worsening. Epigastric, radiating to back and the left side. Today she is also noticing having R sided pain which is worsened with deep breaths. Also admits to nausea, fatigue recently also notes fever and elevated heart rate. Infrequent bowel movements which she attributes to poor p.o. intake due to pain and nausea. Patient had trial of dose of morphine sulfate in the ER, worked for some time but now is worn off. She reports that it did not affect the right sided chest pain with inspiration and is asking for a different pain medication. Patient's is present at bedside and supports the history. CT abd/pelvis reviewed this morning and has new findings of RLL pulmonary emboli segmental and subsegmental. Also shows mild acute pancreatitis of pancreatic tail with 2.1 cm pancreatic tail lesion which was evaluated by radiology on imaging and is suggestive of possible biopsy fluid collection. No drainable peripancreatic fluid collections or pancreatic ductal dilation. Colonic diverticulosis without acute diverticulitis. WBC is stable at 7.32, afebrile, lipase is 15 on admission. UA appears to be possibly infected with WBC 6-10, 1+ esterase, 2+ bacteria. Admission Exam Per Admitting Provider General: awake, alert, no apparent distress, Obese white female Head: Normocephalic, atraumatic ENT: PERRL, EOMI, no pharyngeal exudate, mucous membranes moist Chest: Clear to auscultation, on room air,O2 sats 97% no adventitious breath sounds Cardiac: Regular rate and rhythm, no murmur, no JVD, normal peripheral pulses, good capillary refill Abdominal: NABS x 4 quadrants, soft, nondistended, + Epigastric tenderness with palpation, no rebound or guarding Extremities: Normal inspection, RLE possible slightly larger than the LLE, no peripheral edema or erythema, calfs nontender to palpation Psych: Normal mood and affect Neuro: AAO x 3, strength intact bilaterally and rated 5/5, no motor deficits, speech is clear, no peripheral sensory deficits Discharge Exam General: Alert, oriented. No acute distress Skin: No noted rashes or bruises Psych: Appropriate mood and affect HEENT: NC/AT CV: RRR Resp: Breath sounds clear bilaterally, no increased effort of breathing Abdomen: Soft, tender Extremities: No edema in lower extremities bilaterally. Updated Medication List Medication Instructions Recorded Confirmed Type atorvastatin 20 mg tablet 20 mg PO PM 01/12/23 07/18/24 History losartan 100 mg tablet 100 mg PO DAILY 01/12/23 07/18/24 History metoprolol succinate 50 mg 50 mg PO DAILY 01/12/23 07/18/24 History tablet,extended release 24 hr tizanidine 4 mg capsule 4 mg PO DAILY PRN muscle spasms 01/12/23 07/18/24 History verapamil 240 mg tablet,extended 360 mg PO DAILY 02/27/24 07/18/24 History release hydrocodone 5 mg-acetaminophen 325 1 tab PO Q8H 07/18/24 07/18/24 History mg tablet pantoprazole 40 mg tablet,delayed 40 mg PO QAM 07/18/24 07/18/24 History release apixaban 5 mg (74 tabs) tablets in 5 mg PO BID #74 ea 07/24/24 Rx a dose pack (Eliquis) ondansetron 4 mg disintegrating 4 mg PO Q8H PRN nausea and 07/24/24 Rx tablet vomiting #30 tabs Hospital Stay Data Consultations 07/18/24 12:51 Consult Gastroenterology Routine 07/18/24 12:57 ED Decision to Admit Stat Diagnostic Imagining Performed 07/18/24 11:00 CT abd pelvis IV con only Stat 07/18/24 13:27 CT angio chest PE protocol Stat 07/18/24 14:06 US venous doppler LE BI Stat Abdomen/Pelvis CT 07/18/24 11:[address] WITH IV CONTRAST CT DOSE: 1447.39 mGy.cm HISTORY: Acute epigastric abdominal pain with reported pancreatitis abd pain, recent pacreas biopsy TECHNIQUE: Multiaxial CT images of the abdomen and pelvis were performed followi ng the IV administration of 94 cc of Optiray, A dose lowering technique was utilized adhering to the principles of ALARA. COMPARISON STUDY: 12/22/2022, 10/28/2022, 03/23/2009, chest CT 10/28/2018 FINDINGS: Segmental and subsegmental right lower lobe pulmonary emboli incidentally noted. Small Bochdalek hernias. No pneumatosis or pneumoperitoneum. Unremarkable spleen, adrenal glands and liver. Cholecystectomy with intrahepatic and extrahepatic biliary ductal dilation which is likely postsurgical. The common bile duct measures 1.4 cm. Ovoid circumscribed centrally hypodense lesion posterior to the pancreatic tail on image 121 series 3 redemonstrated in retrospect this is unchanged dating back to the 12/22/2022 study and is new from 10/28/2018. There is mild interstitial and peripancreatic inflammatory stranding adjacent to the pancreatic tail. Intermediate density 2.1 x 1.7 x 1.5 cm lesion involves the superior aspect of the pancreatic tail on image 107 series 3 which is new from the prior studies. This abuts the adjacent greater curvature of the stomach. No pancreatic ductal dilation. No drainable fluid collections. Mild nonspecific bilateral perinephric stranding. Mild cortical thinning of the kidneys without hydronephrosis. Probable small cyst of the lateral interpolar left kidney. Unremarkable urinary bladder. Hysterectomy. The aorta and IVC are unremarkable. No lymphadenopathy. Small hiatal hernia. Colonic diverticulosis without acute diverticulitis. Sigmoid colon anastomotic suture. Prior ventral abdominal wall herniorrhaphy repair. No acute fracture. IMPRESSION: 1. Right lower lobe segmental and subsegmental pulmonary emboli. 2. Findings suggestive of mild acute pancreatitis of the pancreatic tail with intermediate density 2.1 cm pancreatic tail lesion which is new from the prior exam abutting the adjacent greater curvature of the stomach. Differential considerations include a solid versus complex primary cystic pancreatic lesion, complex pseudocyst versus post-biopsy collection. Follow-up recommended. 3. Hypodense 1.9 cm lesion posterior to the pancreatic tail redemonstrated which is similar in appearance to the study from 12/22/2022. 4. No drainable peripancreatic fluid collections or pancreatic ductal dilation. 5. Colonic diverticulosis without acute diverticulitis. ACT 112: Negative or not required by law. The above report was generated using voice recognition software. It may contain grammatical, syntax or spelling errors. Electronically signed by: Esequiel Gaston M.D. 07/18/2024 12:28 PM Chest CTA 07/18/24 13:27 CT angio chest PE protocol CT DOSE: 966.48 mGy.cm HISTORY: PE. TECHNIQUE: Multiple CTA images of the chest were obtained after the intravenous administration of 112 ml Optiray. Coronal and sagittal MIPS were obtained from the axial data set and were submitted for review. All measurements were obtained according to NASCET criteria. A dose lowering technique was utilized adhering to the principles of ALARA. COMPARISON STUDY: 10/28/2018 FINDINGS: There is no pulmonary consolidation or pleural effusion. No pneumothorax. No enlarged adenopathy. No pericardial effusion. No thoracic aortic dissection or aneurysm. There is small volume acute pulmonary embolism at a few subsegmental right upper and lower lobe pulmonary artery branches. RV LV ratio is less than 1. No acute osseous findings. IMPRESSION: Small volume acute pulmonary embolism with no evidence of right heart strain. ACT 112: Negative or not required by law. The above report was generated using voice recognition software. It may contain grammatical, syntax or spelling errors. Electronically signed by: Robson Frank M.D. 07/18/2024 2:15 PM Venous Doppler Study 07/18/24 14:06 BILATERAL LOWER EXTREMITY VENOUS DOPPLER HISTORY: Screening the patient with pulmonary emboli Eval for DVT, confirmed PE COMPARISON STUDY: CTA chest of same day FINDINGS: There is normal compressibility, flow, and augmentation within the bilateral lower extremity deep venous systems. IMPRESSION: No DVT within the right or left lower extremity. ACT 112: Negative or not required by law. Electronically signed by: Esequiel Gaston M.D. 07/18/2024 3:46 PM Discharge Instructions Given to Patient (Per Discharging Provider) Myranda, You were admitted and treated for acute mild pancreatitis. You were also noted to have blood clots in your lungs. We started you on a blood thinner medication. Please continue with the Eliquis prescribed at home. We will give you a short supply to go home with but you will need to flower buncher or picker your Eliquis medication from the pharmacy tomorrow once they have it available. We prescribed you as needed Zofran to help with your nausea. Please keep close follow up with your primary care provider and vibrator equipment tester after discharge. Please keep close follow up with your specialists as well. Please do not hesitate to come back to the emergency room if your symptoms worsen or return. It was a pleasure taking care of you while you were here. Total Time Total Time Spent Total Time Spent (In Minutes): 65
[2024-07-24] MEDS ORDERED: APIXABAN 5 MG TABLET PO SCH (13:00)
[2024-07-24] MEDS: APIXABAN 5 MG TABLET PO SCH (13:40)
[2024-07-31] MEDS ORDERED: APIXABAN 5 MG TABLET PO SCH (09:00)
== END 2024-07-24 16:31 | disposition home or self-care (01) | DRG 438 ==
LOC: ED 09:47 → SUATTDRO 13:16 → 4W 13:16

== ENCOUNTER 2025-02-17 01:26 | Observation (INO) ==
[2025-02-17 02:09] LABS: Hematocrit (blood only) 43.5 % (37.0-47.0); Hemoglobin 15.2 g/dl (12.0-16.0); Immature Granulocytes # (auto) 0.01 K/uL (0.01-0.20); Immature Granulocytes % (auto) 0.2 %; Mean Corpuscular Hemoglobin 32.0 pg (25.0-34.0); Mean Corpuscular Volume 91.6 fL (80.0-100.0); Platelet Count 194 K/uL (130-400); RDW Standard Deviation 41.2 fL (36.4-46.3); Red Blood Count 4.75 M/uL (4.20-5.40); White Blood Count 5.85 K/ul (4.8-10.8)
[2025-02-17] MEDS: ONDANSETRON INJ 2 MG/ML 2 ML VIAL IV STA ×2 (02:10→08:15)
--- NOTE | 2025-02-17 02:53 | Emergency Department Note ---
Impression & Plan Acute hyponatremia, Weakness, Vomiting, Dehydration Admit to the [facility] ED Provider Note NAME: EARNESTINE CARTER AGE: 80 SEX: Female INFORMANT: Patient ED PROVIDER(S): Perla Rodriguez DO CHIEF COMPLAINT: chest discomfort; nausea/vomiting; weakness PLAN: Disposition: Admit to the [facility] MEDICAL DECISION MAKING: This is a 80-year-old female patient who was just discharged from the hospital 2 days ago after episodes of bradycardia And hyperglycemia. Patient's medications were changed. She did well over the past 48 hours but then this evening began to develop chest discomfort, dizziness, weakness, nausea and vomiting. Patient also describes belching and hiccups. She thought she was getting sick and vomiting after each dose of metformin. The patient's prescription was increased upon discharge. laboratory studies revealed no leukocytosis or anemia. Sodium level was down to 129. BUN was 25 and BUN/creatinine ratio was 24. Glucose was at 139. Troponin was negative. Patient was bolused with IV normal saline and given a dose of IV Zofran for nausea which gave her significant relief of her symptoms. Was negative. EKG was unremarkable. Chest discomfort has resolved at this time. 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 Today's presentation presents with vomiting and nausea as well as belching. She denies any significant abdominal pain. Patient went for CT scan of the abdomen/pelvis to rule out a recurrent bezoar or any other intra-abdominal pathology. This was negative. Discussed the case with the [facility] and they will Have daylight staff evaluate for further inpatient care. Care/management discussed with: dietary manager and [facility] Triage Nursing notes: reviewed and agree with them. Vital Signs: reviewed and remarkable for hypertension Additional History obtained from: the patient's is at the bedside Chronic Medical/Social Conditions affecting care: diabetes and cardiac disease Prior/ Outside/ External records reviewed: I did review the most recent inpatient records Differential Diagnosis: recurrent bezoar; cardiac ischemia, cardiac dysrhythmia, hyper glycemia Diagnostics, independently interpreted by me: ECG: sinus tachycardia at a rate of [address] segment elevation or signs of ischemia. There is no ectopy. Cardiac Monitoring: sinus tachycardia at a rate of 105 Imaging studies: x-ray: No acute pulmonary infiltrates or consolidation as my independent interpretation. CT scan of the abdomen/pelvis: No evidence of bezoar and was essentially negative. HPI: 80 year old Female arrives for evaluation of Chest discomfort, nausea/vomiting and weakness. patient who was just discharged from the hospital 2 days ago after episodes of bradycardia And hyperglycemia. Patient's medications were changed. She did well over the past 48 hours but then this evening began to develop chest discomfort, dizziness, weakness, nausea and vomiting. Patient also describes belching and hiccups. She thought she was getting sick and vomiting after each dose of metformin. The patient's prescription was increased upon discharge. PAST MEDICAL HISTORY: See Below, PAST SURGICAL HISTORY: See Below, SOCIAL HISTORY: Patient lives with her , denies any alcohol use HOME MEDICATIONS: see list ALLERGIES: See list VITALS: See Below PHYSICAL EXAMINATION: HEENT: Head - normocephalic and atraumatic Pupils are equal, round, and reactive to light. Extraocular eye muscles are intact, and sclera are anicteric. Nose - moist nasal mucosa without discharge. Mouth - moist buccal mucosa. Oropharynx is nonerythematous and there is no tonsillar exudate or edema noted. Neck: Supple; no Cervical Lymphadenopathy or JVD Heart: Regular rate and rhythm. There is a normal S1 and S2 with no murmurs, clicks, or gallops appreciated. Lungs: Clear to auscultation bilaterally with no wheezes, rales, or rhonchi. Abdomen: Soft, mildly tender in the epigastrium, nondistended, with good bowel sounds. There are no palpable pulsatile masses or hepatosplenomegaly. There is no guarding, rigidity, or rebound noted. Extremities: No evidence of cyanosis, clubbing, or edema. There are easily palpable peripheral pulses. Skin: warm and dry with good turgor and no rashes. Emergency Department treatment: ekg monitor tech, IV normal saline bolus, IV Zofran Emergency department course: patient was evaluated in room A-12. Previous inpatient records from last week were reviewed. IV lock was initiated and labs are drawn as above. The patient was given a bolus of IV normal saline solution along with a dose of IV Zofran. On repeat assessment, the patient was feeling much better with regards to her nausea but still felt quite weak. The patient will be evaluated for admission. The patient has concerns that she can no longer tolerate the increased dose of metformin But does not want to develop hyperglycemia again. The evidence of dehydration may be secondary to the patient's repeat episodes of vomiting. Patient will be evaluated by the [facility] Hospitalist. Past Med/Surg History Problem List (Updated 02/17/25 @ 06:41 by Perla Rodriguez DO) Dehydration (Acute) Vomiting (Acute) Weakness (Acute) Acute hyponatremia (Acute) Uncontrolled hypertension Type 2 diabetes mellitus Hypertensive heart disease Diastolic heart failure Accelerated junctional rhythm Acute hyperglycemia (Acute) ZAC (acute kidney injury) (Acute) Acute electrocardiogram changes (Acute) Palpitations (Acute) Near syncope (Acute) Junctional rhythm Hyperglycemia Pre-syncope Hyponatremia ZAC (acute kidney injury) Greater trochanteric bursitis Acute pancreatitis (Acute) Pulmonary emboli Acute pancreatitis Cervical radiculopathy Cervicalgia Cervical postlaminectomy syndrome Cervical myofascial pain syndrome Encounter for pre-operative examination Osteoporosis (Chronic) Asthma, cough variant (Chronic) GERD (gastroesophageal reflux disease) (Chronic) Dysphagia (Chronic) HTN (hypertension) (Chronic) Dyslipidemia (Chronic) Migraine (Chronic) ACS (acute coronary syndrome) Medical History (Updated 02/17/25 @ 06:41 by Perla Rodriguez DO) Nausea and vomiting after administration of anesthetic agent Skin cancer of breast left Pancreatitis GERD (gastroesophageal reflux disease) Migraine Gastric bezoar Hyperlipidemia Hypertension Asthma "stress induced" Surgical History Hx of Moh's micrographic surgery for skin cancer left breast skin cancer History of bilateral salpingo-oophorectomy (BSO) History of partial hysterectomy History of dilatation and curettage History of esophagogastroduodenoscopy (EGD) History of colonoscopy History of exploratory laparotomy x2 for lysis of adhesions History of Nathan fundoplication History of umbilical hernia repair History of colostomy reversal 12/2008 @ [facility] History of colectomy 10/2008--sigmoid colectomy and colostomy d/t perforation @ [facility] History of appendectomy History of cholecystectomy History of tonsillectomy and adenoidectomy History of endoscopic sinus surgery S/P cervical spinal fusion C2-5; normal ROM History of cardiac cath 2016, no stent follows with Dr. Hart Family History Aunt Breast cancer Cancer Uterine cancer Mother Parkinson disease Father Stroke Social History Smoking Status: Never smoker Second Hand Exposure: Yes (both parents smoked); Do You Dip or Chew Tobacco: No; Hx Alcohol Use: Yes Alcohol type: wine and hard liquor Hx Substance Use: No Preferred Language: Chinese Communication Ability: Effective Budget Specialist Required: No Beliefs That Will Affect Care: None marital status: Current Living Situation: Spouse current occupational status: retired Feels Safe at Home: Yes Assistive Devices: None Allergies Allergies Allergy/AdvReac Type Severity Reaction Status Date / Time moxifloxacin [From Avelox] Allergy Severe Unknown Verified 12/26/24 10:44 barium sulfate AdvReac Severe RUPTURE OF Verified 12/26/24 10:44 BOWEL codeine AdvReac Unknown EFFECTS Verified 12/26/24 10:44 LAST ABOUT 1 WEEK LYNSEY Inhibitors AdvReac Cough Verified 12/26/24 10:44 ciprofloxacin [From Cipro] AdvReac tendon Verified 12/26/24 10:44 pain and weakness Home Meds Home Medications Medication Instructions Recorded Confirmed atorvastatin 20 mg tablet 20 mg PO PM 01/12/23 02/11/25 tizanidine 4 mg capsule 4 mg PO DAILY PRN muscle spasms 01/12/23 02/11/25 pantoprazole 40 mg tablet,delayed 40 mg PO QAM 07/18/24 02/11/25 release Previous Rx's Medication Instructions Recorded blood sugar diagnostic (Algae International GroupTouch #100 ea 02/12/25 Ultra Test strips) blood-glucose meter (OneTouch #1 ea 02/12/25 Ultra2 Meter) lancets 33 gauge (OneTouch Delica #100 ea 02/12/25 Plus Lancet) metformin 500 mg tablet 500 mg PO BID Diabetes #20 tabs 02/14/25 valsartan 320 1 tab PO DAILY High blood pressure 02/14/25 mg-hydrochlorothiazide 12.5 mg #14 tabs tablet (Diovan HCT) verapamil 240 mg tablet,extended 240 mg PO QAM High blood pressure 02/14/25 release #14 tabs Results & Data (ED) Vital Signs Vital Signs - 24 hr 02/17/25 01:29 02/17/25 01:38 02/17/25 01:40 Temperature 36.5 C Temperature Source Temporal Artery Scan Pulse Rate 105 H 104 H Pulse Rate [Apical] Pulse Rate from SpO2 Sensor Respiratory Rate 22 Respiratory Effort / Characteristics Respiratory Depth Blood Pressure 190/88 H 162/92 H Blood Pressure [Right Arm] Blood Pressure Mean 122 123 Blood Pressure Mean [Right Arm] Pulse Oximetry 98 Oxygen Delivery Method Room Air Oxygen Flow Rate Sepsis Recent Fever Within 48 Hours No Sepsis New/Unexplained Change in Mental Status No Sepsis Action Taken by Nursing Physician Notified 02/17/25 01:42 02/17/25 01:42 02/17/25 01:44 Temperature Temperature Source Pulse Rate 104 H Pulse Rate [Apical] 100 H Pulse Rate from SpO2 Sensor 103 H Respiratory Rate 18 12 Respiratory Effort / Characteristics Non-Labored Respiratory Depth Normal Blood Pressure Blood Pressure [Right Arm] 162/92 H Blood Pressure Mean Blood Pressure Mean [Right Arm] 115 Pulse Oximetry 98 97 Oxygen Delivery Method Room Air Oxygen Flow Rate Sepsis Recent Fever Within 48 Hours Sepsis New/Unexplained Change in Mental Status Sepsis Action Taken by Nursing 02/17/25 01:56 02/17/25 01:57 02/17/25 02:00 Temperature Temperature Source Pulse Rate 96 H Pulse Rate [Apical] Pulse Rate from SpO2 Sensor 96 H Respiratory Rate 21 Respiratory Effort / Characteristics Respiratory Depth Blood Pressure 195/97 H Blood Pressure [Right Arm] Blood Pressure Mean 141 Blood Pressure Mean [Right Arm] Pulse Oximetry 95 Oxygen Delivery Method Room Air Oxygen Flow Rate Sepsis Recent Fever Within 48 Hours Sepsis New/Unexplained Change in Mental Status Sepsis Action Taken by Nursing 02/17/25 02:12 02/17/25 02:30 02/17/25 02:36 Temperature Temperature Source Pulse Rate 95 H 88 Pulse Rate [Apical] Pulse Rate from SpO2 Sensor 95 H 90 Respiratory Rate 14 16 Respiratory Effort / Characteristics Respiratory Depth Blood Pressure 194/93 H Blood Pressure [Right Arm] Blood Pressure Mean 125 Blood Pressure Mean [Right Arm] Pulse Oximetry 93 97 Oxygen Delivery Method Oxygen Flow Rate Sepsis Recent Fever Within 48 Hours Sepsis New/Unexplained Change in Mental Status Sepsis Action Taken by Nursing 02/17/25 02:48 02/17/25 02:57 02/17/25 03:00 Temperature Temperature Source Pulse Rate 89 88 Pulse Rate [Apical] Pulse Rate from SpO2 Sensor 89 88 Respiratory Rate 16 18 Respiratory Effort / Characteristics Respiratory Depth Blood Pressure 187/91 H Blood Pressure [Right Arm] Blood Pressure Mean 134 Blood Pressure Mean [Right Arm] Pulse Oximetry 94 93 Oxygen Delivery Method Nasal Cannula Oxygen Flow Rate 3 Sepsis Recent Fever Within 48 Hours Sepsis New/Unexplained Change in Mental Status Sepsis Action Taken by Nursing 02/17/25 03:00 02/17/25 03:09 02/17/25 03:24 Temperature Temperature Source Pulse Rate 88 92 H Pulse Rate [Apical] Pulse Rate from SpO2 Sensor 88 92 H Respiratory Rate 18 13 Respiratory Effort / Characteristics Respiratory Depth Blood Pressure 197/84 H Blood Pressure [Right Arm] Blood Pressure Mean 134 Blood Pressure Mean [Right Arm] Pulse Oximetry 93 96 Oxygen Delivery Method Oxygen Flow Rate Sepsis Recent Fever Within 48 Hours Sepsis New/Unexplained Change in Mental Status Sepsis Action Taken by Nursing 02/17/25 03:24 02/17/25 03:27 02/17/25 03:30 Temperature Temperature Source Pulse Rate Pulse Rate [Apical] Pulse Rate from SpO2 Sensor Respiratory Rate Respiratory Effort / Characteristics Non-Labored Respiratory Depth Normal Blood Pressure 197/84 H 177/82 H Blood Pressure [Right Arm] Blood Pressure Mean 134 114 Blood Pressure Mean [Right Arm] Pulse Oximetry Oxygen Delivery Method Oxygen Flow Rate Sepsis Recent Fever Within 48 Hours Sepsis New/Unexplained Change in Mental Status Sepsis Action Taken by Nursing 02/17/25 03:32 02/17/25 03:36 02/17/25 04:03 Temperature Temperature Source Pulse Rate 89 Pulse Rate [Apical] Pulse Rate from SpO2 Sensor 85 88 Respiratory Rate 18 Respiratory Effort / Characteristics Respiratory Depth Blood Pressure 177/82 H Blood Pressure [Right Arm] Blood Pressure Mean 113 Blood Pressure Mean [Right Arm] Pulse Oximetry 99 97 Oxygen Delivery Method Oxygen Flow Rate Sepsis Recent Fever Within 48 Hours Sepsis New/Unexplained Change in Mental Status Sepsis Action Taken by Nursing 02/17/25 04:12 02/17/25 04:42 02/17/25 04:51 Temperature Temperature Source Pulse Rate 83 89 89 Pulse Rate [Apical] Pulse Rate from SpO2 Sensor 83 89 88 Respiratory Rate 16 16 17 Respiratory Effort / Characteristics Respiratory Depth Blood Pressure Blood Pressure [Right Arm] Blood Pressure Mean Blood Pressure Mean [Right Arm] Pulse Oximetry 97 98 99 Oxygen Delivery Method Oxygen Flow Rate Sepsis Recent Fever Within 48 Hours Sepsis New/Unexplained Change in Mental Status Sepsis Action Taken by Nursing 02/17/25 05:00 02/17/25 05:00 02/17/25 05:00 Temperature Temperature Source Pulse Rate 85 Pulse Rate [Apical] Pulse Rate from SpO2 Sensor 85 Respiratory Rate 13 Respiratory Effort / Characteristics Non-Labored Respiratory Depth Normal Blood Pressure 186/90 H Blood Pressure [Right Arm] Blood Pressure Mean 123 Blood Pressure Mean [Right Arm] Pulse Oximetry 97 Oxygen Delivery Method Oxygen Flow Rate Sepsis Recent Fever Within 48 Hours Sepsis New/Unexplained Change in Mental Status Sepsis Action Taken by Nursing 02/17/25 05:18 02/17/25 05:21 02/17/25 05:26 Temperature Temperature Source Pulse Rate 83 84 84 Pulse Rate [Apical] Pulse Rate from SpO2 Sensor 85 84 Respiratory Rate 17 16 Respiratory Effort / Characteristics Respiratory Depth Blood Pressure Blood Pressure [Right Arm] Blood Pressure Mean Blood Pressure Mean [Right Arm] Pulse Oximetry 95 96 Oxygen Delivery Method Oxygen Flow Rate Sepsis Recent Fever Within 48 Hours Sepsis New/Unexplained Change in Mental Status Sepsis Action Taken by Nursing 02/17/25 05:27 02/17/25 05:30 02/17/25 05:30 Temperature Temperature Source Pulse Rate 86 Pulse Rate [Apical] Pulse Rate from SpO2 Sensor 85 Respiratory Rate 17 Respiratory Effort / Characteristics Respiratory Depth Blood Pressure 178/96 H 178/96 H Blood Pressure [Right Arm] Blood Pressure Mean 134 134 Blood Pressure Mean [Right Arm] Pulse Oximetry 97 Oxygen Delivery Method Oxygen Flow Rate Sepsis Recent Fever Within 48 Hours Sepsis New/Unexplained Change in Mental Status Sepsis Action Taken by Nursing 02/17/25 05:33 02/17/25 05:42 02/17/25 05:48 Temperature Temperature Source Pulse Rate 87 96 H 88 Pulse Rate [Apical] Pulse Rate from SpO2 Sensor 86 96 H 88 Respiratory Rate 18 19 17 Respiratory Effort / Characteristics Respiratory Depth Blood Pressure Blood Pressure [Right Arm] Blood Pressure Mean Blood Pressure Mean [Right Arm] Pulse Oximetry 97 97 94 Oxygen Delivery Method Oxygen Flow Rate Sepsis Recent Fever Within 48 Hours Sepsis New/Unexplained Change in Mental Status Sepsis Action Taken by Nursing 02/17/25 06:05 Temperature Temperature Source Pulse Rate Pulse Rate [Apical] Pulse Rate from SpO2 Sensor Respiratory Rate Respiratory Effort / Characteristics Respiratory Depth Blood Pressure 172/83 H Blood Pressure [Right Arm] Blood Pressure Mean 128 Blood Pressure Mean [Right Arm] Pulse Oximetry Oxygen Delivery Method Oxygen Flow Rate Sepsis Recent Fever Within 48 Hours Sepsis New/Unexplained Change in Mental Status Sepsis Action Taken by Nursing Laboratory Data 02/17/25 01:56 02/17/25 01:56 Lab Results 02/17/25 02/17/25 Range/Units 01:37 01:56 WBC 5.85 (4.8-10.8) K/ul RBC 4.75 (4.20-5.40) M/uL Hgb 15.2 (12.0-16.0) g/dl Hct 43.5 (37.0-47.0) % MCV 91.6 (80.0-100.0) fL MCH 32.0 (25.0-34.0) pg MCHC 34.9 (32.0-36.0) g/dL RDW Std Deviation 41.2 (36.4-46.3) fL RDW Coeff of Nancy 12.4 (11.5-14.5) % Plt Count 194 (130-400) K/uL MPV 10.1 (9.4-12.4) fL Immature Gran % (Auto) 0.2 % Neut % (Auto) 48.1 % Lymph % (Auto) 39.1 % Woodward % (Auto) 9.1 % Eos % (Auto) 3.2 % Baso % (Auto) 0.3 % Neut # (Auto) 2.81 (1.40-6.50) K/uL Lymph # (Auto) 2.29 (1.20-3.40) K/uL Woodward # (Auto) 0.53 (0.11-0.59) K/uL Eos # (Auto) 0.19 (0.00-0.50) K/uL Baso # (Auto) 0.02 (0.00-0.20) K/uL Immature Gran # (Auto) 0.01 (0.01-0.20) K/uL Sodium 129 L (136-145) mmol/L Potassium 4.1 TNP (3.5-5.1) mmol/L Chloride 94 L (98-107) mmol/L Carbon Dioxide 23 (21-32) mmol/L Anion Gap 12 H (3-11) BUN 25 H (6-23) mg/dl Creatinine 1.04 (0.6-1.2) mg/dl Est Cr Clr Drug Dosing Not Reportable eGFR 55.01 BUN/Creatinine Ratio 24.0 H (10-20) Glucose 139 H (70-99(Fasting)) mg/dl Calcium 10.9 H (8.6-10.3) mg/dl Total Bilirubin 0.8 (0.2-1.0) mg/dl AST 27 TNP (13-39) U/L ALT 40 (7-52) U/L Alkaline Phosphatase 63 (34-104) U/L Troponin I High Sens 11.6 (0-14) pg/ml Total Protein 7.0 (6.0-8.3) gm/dl Albumin 4.2 (3.4-5.0) gm/dl Globulin 2.8 (2.5-4.0) gm/dl Albumin/Globulin Ratio 1.5 (0.9-2) Lipase 24 (11-82) U/L Administered Medications Discontinued Medications Sodium Chloride (Nss) 500 mls @ 999 mls/hr IV .Q31M ONE Stop: 02/17/25 04:13 Last Infusion: 02/17/25 05:10 Dose: Infused Documented By: Admin: 02/17/25 04:04 Dose: 999 mls/hr Documented By: ZEKE Ioversol (Optiray 320 125ml) 125 ml IV ONCE ONE Stop: 02/17/25 03:24 Last Admin: 02/17/25 03:23 Dose: 118 ml Documented By: ARPIT Ondansetron HCl (Ondansetron Inj 2 Mg/Ml 2 Ml Vial) 4 mg IV NOW STA Stop: 02/17/25 01:58 Last Admin: 02/17/25 02:10 Dose: 4 mg Documented By: ARIELLE Imaging Data Radiologist's Impression: Abdomen/Pelvis CTA 02/17/25 01:56 EXAM: CT angio abdomen pelvis w con CLINICAL HISTORY: eval for epigastric discomfort; r/o bezor TECHNIQUE: CTA of the abdomen and pelvis was performed with IV contrast. Coronal and sagittal reconstructive images were also obtained. One of these 3D techniques was utilized: Maximum Intensity Pixel (MIP), 3D Reconstructed Images, Volume Rendered Images, Surface Shaded Rendering. Axial non-contrast sections of the abdomen and pelvis were also obtained. One of the following dose reduction techniques was utilized for this exam. Automated exposure control, adjustment of the mA and/or kV according to patient size, and use of iterative reconstruction. COMPARISON: Compared to the prior CT abdomen dated 07/18/2024 FINDINGS: Aorta: The abdominal aorta is normal in caliber. No evidence of aneurysm, dissection, or significant atherosclerotic changes. A few small mural calcifications. Aortic bifurcation is unremarkable. Renal Arteries: Renal arteries are normal in size and opacification. No evidence of stenosis or occlusion. Symmetric perfusion of both kidneys. Mesenteric Arteries: Superior mesenteric artery (SMA) and inferior mesenteric artery ([place]) are normal in caliber and opacification. No evidence of stenosis or occlusion. 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 Otherwise, the Celiac artery is normal in caliber and opacification. No evidence of significant stenosis or occlusion. Iliac Arteries: Common, internal, and external iliac arteries are normal in caliber and opacification. No evidence of stenosis, aneurysm, or occlusion. Venous Structures: Inferior vena cava (IVC) and major venous structures are normal in caliber and opacification. No evidence of thrombus or obstruction. Liver: Normal size and morphology. Homogeneous enhancement post-contrast. No focal hepatic lesions. Gallbladder and Biliary System: Surgical removal of the gall bladder.. No evident biliary dilatation. Pancreas: A small cyst, 18 x 13 mm, is seen just posterior to the tail of the pancreas. Otherwise, Normal size and contour. Homogeneous enhancement post-contrast. No masses or cystic lesions. Spleen: Normal size and appearance. Homogeneous enhancement post-contrast. Adrenal Glands: Normal size and morphology bilaterally. No adrenal masses. Kidneys and Ureters: Normal size, shape, and position of both kidneys. Homogeneous enhancement post-contrast. No renal stones, masses, or hydronephrosis. Ureters are unremarkable. Bladder: Normal in size and wall thickness. No intraluminal masses. Normal enhancement post-contrast. Bowel: Normal appearance of the visualized bowel loops. No evidence of obstruction, wall thickening, or abnormal dilatation. Lymph Nodes: No pathologically enlarged lymph nodes in the abdomen or pelvis. Peritoneum: No free fluid or free air in the abdomen. Bones: No lytic or sclerotic lesions. Normal alignment and bone density. Soft Tissues: Normal appearance of the visualized soft tissues. Sliding hiatus hernia. IMPRESSION: 1. 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 Otherwise, normal CT angiography of the abdomen and pelvis. 3. A small cyst 18 x 13 mm is seen just posterior to the tail of the pancreas. 4. Sliding hiatus hernia. 5. Compared to the prior CT dated 07/18/2024, no changes Electronically signed by Servando Cuevas 02-17-2025 04:37 AM Chest X-Ray 02/17/25 01:56 EXAM: XR chest 1V portable CLINICAL HISTORY: Chest pain, nonspecific TECHNIQUE: An X-ray image of the chest is obtained in AP projection. COMPARISON: prior 02/11/2025 FINDINGS: Pulmonary Parenchyma: Slight suboptimal inspiratory effort resulting in mild hilar congestion No evidence of consolidation, collapse, or focal opacities. No pulmonary nodules are identified. No evidence of pleural effusion or pleural thickening. Heart and Mediastinum: Heart size and shape are normal. No mediastinal widening or masses. No hilar or mediastinal lymphadenopathy. Bony Thorax: Bony thorax appears intact without fractures or deformities. Status post cervical spine fixation Soft Tissues: Soft tissues overlying the chest wall are unremarkable. IMPRESSION: 1. Slight suboptimal inspiratory effort resulting in mild hilar congestion 2. No pleural effusion seen 3. Clinical correlation advised, No significant interval changes Electronically signed by Servando Cuevas 02-17-2025 03:07 AM Discharge Plan Visit Data Chief Complaint: Cardiac Assessment Stated Complaint: NAUSEA, VOMIT, TACHY, CHEST PAIN, DIZZY ED Provider: Perla Rodriguez Discharge Problem: Acute hyponatremia, Weakness, Vomiting, Dehydration Condition: Serious Forms Stand Alone Forms: My [facility] Prescriptions Prescriptions: No Action atorvastatin 20 mg tablet 20 mg PO PM tizanidine 4 mg capsule 4 mg PO DAILY PRN (Reason: muscle spasms) pantoprazole 40 mg tablet,delayed release (DR/EC) 40 mg PO QAM (DME) blood-glucose meter [OneTouch Ultra2 Meter] [facility] [place] See Rx Instructions .Route Qty: 1 0RF Rx Instructions: As directed (DME) OneTouch Ultra Test Strip See Rx Instructions .Route Qty: 100 0RF Rx Instructions: 1x/day (DME) lancets [OneTouch Delica Plus Lancet] 33 gauge [facility] [place] See Rx Instructions .Route Qty: 100 0RF Rx Instructions: 1x/ day verapamil 240 mg Tablet Extended Release 240 mg PO QAM Qty: 14 0RF Rx Instructions: Take 1 tablet by mouth daily valsartan-hydrochlorothiazide [Diovan HCT] 320-12.5 mg tablet 1 tab PO DAILY Qty: 14 0RF Rx Instructions: Take 1 tablet by mouth daily metformin 500 mg tablet 500 mg PO BID Qty: 20 0RF Rx Instructions: Take 1 tablet by mouth twice daily Referrals Referrals: Carl Field MD [Primary Care Provider] -
[2025-02-17 03:04] LABS: Alanine Aminotransferase 40 U/L (7-52); Albumin Globulin Ratio 1.5 (0.9-2); Albumin Level 4.2 gm/dl (3.4-5.0); Alkaline Phosphatase 63 U/L (34-104); Anion Gap 12 (3-11); Bilirubin,Total 0.8 mg/dl (0.2-1.0); Blood Urea Nitrogen 25 mg/dl (6-23); Calcium 10.9 mg/dl (8.6-10.3); Carbon Dioxide 23 mmol/L (21-32); Chloride 94 mmol/L (98-107); Globulin 2.8 gm/dl (2.5-4.0); Glucose 139 mg/dl (70-99(Fasting)); Lipase 24 U/L (11-82); Sodium 129 mmol/L (136-145); Total Protein 7.0 gm/dl (6.0-8.3)
--- NOTE | 2025-02-17 03:08 | XRay Report ---
EXAM: XR chest 1V portable CLINICAL HISTORY: Chest pain, nonspecific TECHNIQUE: An X-ray image of the chest is obtained in AP projection. COMPARISON: prior 02/11/2025 FINDINGS: Pulmonary Parenchyma: Slight suboptimal inspiratory effort resulting in mild hilar congestion No evidence of consolidation, collapse, or focal opacities. No pulmonary nodules are identified. No evidence of pleural effusion or pleural thickening. Heart and Mediastinum: Heart size and shape are normal. No mediastinal widening or masses. No hilar or mediastinal lymphadenopathy. Bony Thorax: Bony thorax appears intact without fractures or deformities. Status post cervical spine fixation Soft Tissues: Soft tissues overlying the chest wall are unremarkable. IMPRESSION: 1. Slight suboptimal inspiratory effort resulting in mild hilar congestion 2. No pleural effusion seen 3. Clinical correlation advised, No significant interval changes Electronically signed by Srevando Cuevas 02-17-2025 03:07 AM
[2025-02-17 03:13] LABS: Potassium 4.1 mmol/L (3.5-5.1)
[2025-02-17] MEDS: OPTIRAY 320 125ml IV ONE (03:23)
[2025-02-17] MEDS: SODIUM CHLORIDE 0.9% 500 ML IV ONE (04:04)
--- NOTE | 2025-02-17 04:37 | CT Scan Report ---
EXAM: CT angio abdomen pelvis w con CLINICAL HISTORY: eval for epigastric discomfort; r/o bezor TECHNIQUE: CTA of the abdomen and pelvis was performed with IV contrast. Coronal and sagittal reconstructive images were also obtained. One of these 3D techniques was utilized: Maximum Intensity Pixel (MIP), 3D Reconstructed Images, Volume Rendered Images, Surface Shaded Rendering. Axial non-contrast sections of the abdomen and pelvis were also obtained. One of the following dose reduction techniques was utilized for this exam. Automated exposure control, adjustment of the mA and/or kV according to patient size, and use of iterative reconstruction. COMPARISON: Compared to the prior CT abdomen dated 07/18/2024 FINDINGS: Aorta: The abdominal aorta is normal in caliber. No evidence of aneurysm, dissection, or significant atherosclerotic changes. A few small mural calcifications. Aortic bifurcation is unremarkable. Renal Arteries: Renal arteries are normal in size and opacification. No evidence of stenosis or occlusion. Symmetric perfusion of both kidneys. Mesenteric Arteries: Superior mesenteric artery (SMA) and inferior mesenteric artery ([place]) are normal in caliber and opacification. No evidence of stenosis or occlusion. 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 Otherwise, the Celiac artery is normal in caliber and opacification. No evidence of significant stenosis or occlusion. Iliac Arteries: Common, internal, and external iliac arteries are normal in caliber and opacification. No evidence of stenosis, aneurysm, or occlusion. Venous Structures: Inferior vena cava (IVC) and major venous structures are normal in caliber and opacification. No evidence of thrombus or obstruction. Liver: Normal size and morphology. Homogeneous enhancement post-contrast. No focal hepatic lesions. Gallbladder and Biliary System: Surgical removal of the gall bladder.. No evident biliary dilatation. Pancreas: A small cyst, 18 x 13 mm, is seen just posterior to the tail of the pancreas. Otherwise, Normal size and contour. Homogeneous enhancement post-contrast. No masses or cystic lesions. Spleen: Normal size and appearance. Homogeneous enhancement post-contrast. Adrenal Glands: Normal size and morphology bilaterally. No adrenal masses. Kidneys and Ureters: Normal size, shape, and position of both kidneys. Homogeneous enhancement post-contrast. No renal stones, masses, or hydronephrosis. Ureters are unremarkable. Bladder: Normal in size and wall thickness. No intraluminal masses. Normal enhancement post-contrast. Bowel: Normal appearance of the visualized bowel loops. No evidence of obstruction, wall thickening, or abnormal dilatation. Lymph Nodes: No pathologically enlarged lymph nodes in the abdomen or pelvis. Peritoneum: No free fluid or free air in the abdomen. Bones: No lytic or sclerotic lesions. Normal alignment and bone density. Soft Tissues: Normal appearance of the visualized soft tissues. Sliding hiatus hernia. IMPRESSION: 1. 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 Otherwise, normal CT angiography of the abdomen and pelvis. 3. A small cyst 18 x 13 mm is seen just posterior to the tail of the pancreas. 4. Sliding hiatus hernia. 5. Compared to the prior CT dated 07/18/2024, no changes Electronically signed by Servando Cuevas 02-17-2025 04:37 AM
--- NOTE | 2025-02-17 07:23 | History & Physical Report ---
Date of Service February 17, 2025 Assessment & Plan (1) Nausea & vomiting: (2) Acute hyponatremia: (3) HTN (hypertension): (4) Type 2 diabetes mellitus: Plan 72-year-old female discharged from the facility on February 14, 2025. Presents with nausea vomiting and chest discomfort. This seemed to occur after taking metformin. She had her metformin dose increased her last hospital stay. Additionally she had her antihypertensive medications adjusted. On presentation she is hyponatremic slightly elevated BUN and remainder of her labs are fairly unremarkable with the exception of mild elevated calcium which is unusual for her. She also has a normal troponin and negative EKG. #Nausea vomiting. Question medication side effect. Patient was given intravenous fluids and antiemetics. Will discontinue the hydrochlorothiazide portion of the losartan and continue losartan alone as well as verapamil. I expect her elevated calcium is from dehydration we will follow this with PRP. #Hyponatremia. Repeat PRP to see if this is a trend up so may consider getting osmolalities. #Diabetes. At this time metformin will be held. Insulin sliding scale be initiated. #Hypertension. Continue verapamil to 40 and losartan 100, for cardiac risk factors given she had some chest pain repeat troponin will be undertaken. Patient with mild ptosis of her left eye MRI scan was performed no any intercranial abnormality. Enoxaparin for DVT prevention Patient is a full code History of Present Illness Primary Care Provider: Carl Field MD 80-year-old female patient who was just discharged from the hospital 02/14/25 after episodes of bradycardia And hyperglycemia. Patient's medications were changed by stopping metoprolol, reducing verapamil and adding losartan/HCTZ. Additionally she had metformin increased from 500 daily to 500 bid. She did well over the past 48 hours but then this evening began to develop chest discomfort, dizziness, weakness, nausea and vomiting. Patient also describes belching and hiccups. She thought she was getting sick and vomiting after each dose of metformin. laboratory studies revealed no leukocytosis or anemia. Sodium level was down to 129. BUN was 25 and BUN/creatinine ratio was 24. Glucose was at 139. Troponin was negative. ECG was without acute changes. Patient was hydrated and medicated for nausea with improvement. 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 Today's presentation she denies any significant abdominal pain. Patient went for CT scan of the abdomen/pelvis to rule out a recurrent bezoar or any other intra-abdominal pathology. This was negative. Allergies Allergy/AdvReac Type Severity Reaction Status Date / Time moxifloxacin [From Avelox] Allergy Severe Unknown Verified 12/26/24 10:44 barium sulfate AdvReac Severe RUPTURE OF Verified 12/26/24 10:44 BOWEL codeine AdvReac Unknown EFFECTS Verified 12/26/24 10:44 LAST ABOUT 1 WEEK LYNSEY Inhibitors AdvReac Cough Verified 12/26/24 10:44 ciprofloxacin [From Cipro] AdvReac tendon Verified 12/26/24 10:44 pain and weakness Home Medications Medication Instructions Recorded Confirmed Type atorvastatin 20 mg tablet 20 mg PO PM 01/12/23 02/17/25 History tizanidine 4 mg capsule 4 mg PO DAILY PRN muscle spasms 01/12/23 02/17/25 History pantoprazole 40 mg tablet,delayed 40 mg PO QAM 07/18/24 02/17/25 History release blood sugar diagnostic (OneTouch #100 ea 02/12/25 Rx Ultra Test strips) blood-glucose meter (SnapLayoutTouch #1 ea 02/12/25 Rx Ultra2 Meter) lancets 33 gauge (OneTouch Delica #100 ea 02/12/25 Rx Plus Lancet) metformin 500 mg tablet 500 mg PO BID Diabetes #20 tabs 02/14/25 02/17/25 Rx valsartan 320 1 tab PO DAILY High blood pressure 02/14/25 02/17/25 Rx mg-hydrochlorothiazide 12.5 mg #14 tabs tablet (Diovan HCT) verapamil 240 mg tablet,extended 240 mg PO QAM High blood pressure 02/14/25 02/17/25 Rx release #14 tabs Past Med/Surg History Problem List (Updated 02/17/25 @ 07:19 by Richmond Tran MD) Nausea & vomiting Dehydration (Acute) Vomiting (Acute) Weakness (Acute) Acute hyponatremia (Acute) Uncontrolled hypertension Type 2 diabetes mellitus Hypertensive heart disease Diastolic heart failure Accelerated junctional rhythm Acute hyperglycemia (Acute) ZAC (acute kidney injury) (Acute) Acute electrocardiogram changes (Acute) Palpitations (Acute) Near syncope (Acute) Junctional rhythm Hyperglycemia Pre-syncope Hyponatremia ZAC (acute kidney injury) Greater trochanteric bursitis Acute pancreatitis (Acute) Pulmonary emboli Acute pancreatitis Cervical radiculopathy Cervicalgia Cervical postlaminectomy syndrome Cervical myofascial pain syndrome Encounter for pre-operative examination Osteoporosis (Chronic) Asthma, cough variant (Chronic) GERD (gastroesophageal reflux disease) (Chronic) Dysphagia (Chronic) HTN (hypertension) (Chronic) Dyslipidemia (Chronic) Migraine (Chronic) ACS (acute coronary syndrome) Medical History (Updated 02/17/25 @ 07:19 by Richmond Tran MD) Nausea and vomiting after administration of anesthetic agent Skin cancer of breast left Pancreatitis GERD (gastroesophageal reflux disease) Migraine Gastric bezoar Hyperlipidemia Hypertension Asthma "stress induced" Surgical History Hx of Moh's micrographic surgery for skin cancer left breast skin cancer History of bilateral salpingo-oophorectomy (BSO) History of partial hysterectomy History of dilatation and curettage History of esophagogastroduodenoscopy (EGD) History of colonoscopy History of exploratory laparotomy x2 for lysis of adhesions History of Nathan fundoplication History of umbilical hernia repair History of colostomy reversal 12/2008 @ [facility] History of colectomy 10/2008--sigmoid colectomy and colostomy d/t perforation @ [facility] History of appendectomy History of cholecystectomy History of tonsillectomy and adenoidectomy History of endoscopic sinus surgery S/P cervical spinal fusion C2-5; normal ROM History of cardiac cath 2015, no stent follows with Dr. Hart Family History Aunt Breast cancer Cancer Uterine cancer Mother Parkinson disease Father Stroke Social History Smoking Status: Never smoker Second Hand Exposure: Yes (both parents smoked); Do You Dip or Chew Tobacco: No; Hx Alcohol Use: Yes Alcohol type: wine and hard liquor Hx Substance Use: No Preferred Language: Bahamian Communication Ability: Effective It Support Engineer Required: No Beliefs That Will Affect Care: None marital status: Current Living Situation: Spouse current occupational status: retired Feels Safe at Home: Yes Assistive Devices: Glasses Physical Exam Physical Exam: The patient appeared well nourished and normally developed. Vital signs as documented. Head exam is normocephalic atraumatic patient has some mild ptosis of her left eye which she says is not been mentioned before. Neck is without JVD, thyromegaly, or carotid bruits. Lungs are clear to auscultation, no focal loss of breath sounds Cardiac exam, Rhythm is regular.. No murmurs, rubs or gallops. Abdominal exam reveals normal bowel sounds, soft non tender, no masses Extremities are nonedematous and both pedal pulses are present Neurologic exam is alert and oriented, no focal loss of strength or sensation exception of some mild left eye ptosis Skin is without bruises or rashes Psychologically is without concerns for anxiety or depression.. Results & Data Results & Data Vital Signs (Past 12 Hours) Vital Signs Temp Pulse Pulse Resp BP BP Pulse Ox 02/17/25 06:12 84 18 95 02/17/25 06:05 172/83 H 02/17/25 06:05 172/83 H 02/17/25 05:48 88 17 94 02/17/25 05:42 96 H 19 97 02/17/25 05:33 87 18 97 02/17/25 05:30 178/96 H 02/17/25 05:30 178/96 H 02/17/25 05:27 86 17 97 02/17/25 05:26 84 02/17/25 05:21 84 16 96 02/17/25 05:18 83 17 95 02/17/25 05:00 85 13 97 02/17/25 05:00 186/90 H 02/17/25 04:51 89 17 99 02/17/25 04:42 89 16 98 02/17/25 04:12 83 16 97 02/17/25 04:03 89 18 97 02/17/25 03:36 99 02/17/25 03:32 177/82 H 02/17/25 03:30 177/82 H 02/17/25 03:24 197/84 H 02/17/25 03:24 197/84 H 02/17/25 03:09 92 H 13 96 02/17/25 03:00 88 18 93 02/17/25 03:00 187/91 H 02/17/25 02:57 88 18 93 02/17/25 02:48 89 16 94 02/17/25 02:36 88 16 97 02/17/25 02:30 194/93 H 02/17/25 02:12 95 H 14 93 02/17/25 02:00 195/97 H 02/17/25 01:57 96 H 21 95 02/17/25 01:56 02/17/25 01:44 02/17/25 01:42 104 H 12 97 02/17/25 01:42 100 H 18 162/92 H 98 02/17/25 01:40 162/92 H 02/17/25 01:38 104 H 02/17/25 01:29 97.7 F 105 H 22 190/88 H 98 O2 Del Method O2 Flow Rate 02/17/25 06:12 02/17/25 06:05 02/17/25 06:05 02/17/25 05:48 02/17/25 05:42 02/17/25 05:33 02/17/25 05:30 02/17/25 05:30 02/17/25 05:27 02/17/25 05:26 02/17/25 05:21 02/17/25 05:18 02/17/25 05:00 02/17/25 05:00 02/17/25 04:51 02/17/25 04:42 02/17/25 04:12 02/17/25 04:03 02/17/25 03:36 02/17/25 03:32 02/17/25 03:30 02/17/25 03:24 02/17/25 03:24 02/17/25 03:09 02/17/25 03:00 02/17/25 03:00 02/17/25 02:57 02/17/25 02:48 Nasal Cannula 3 02/17/25 02:36 02/17/25 02:30 02/17/25 02:12 02/17/25 02:00 02/17/25 01:57 02/17/25 01:56 Room Air 02/17/25 01:44 Room Air 02/17/25 01:42 02/17/25 01:42 02/17/25 01:40 02/17/25 01:38 02/17/25 01:29 Room Air Laboratory Results Reviewed CBC reviewed chemistry reviewed troponin. Reviewed CT angiography. Reviewed EKG without acute current of injury Code Status & VTE Plan VTE Prophylaxis Plan VTE Prophylaxis will be ordered: Yes PG Care Time/CCT Total # of Minutes Spent Total Time Spent with Patient: Total time spent is greater than 50% in coordination of care (as documented) at patient's floor/unit and/or counseling patient: Coding Level of Care Code 09307 INT INP/OBS CARE MIN Diagnoses Nausea & vomiting R11.2 Acute hyponatremia E87.1 HTN (hypertension) I10 Type 2 diabetes mellitus E11.9
[2025-02-17 07:51] LABS: Anion Gap 6 (3-11); Blood Urea Nitrogen 19 mg/dl (6-23); Calcium 10.0 mg/dl (8.6-10.3); Carbon Dioxide 26 mmol/L (21-32); Chloride 98 mmol/L (98-107); Glucose 114 mg/dl (70-99(Fasting)); Potassium 4.1 mmol/L (3.5-5.1); Sodium 130 mmol/L (136-145)
[2025-02-17] MEDS: LORazepam 0.5 MG TAB PO STA (09:54)
--- NOTE | 2025-02-17 10:37 | Magnetic Resonance Report ---
MRI OF THE BRAIN WITHOUT IV CONTRAST CLINICAL HISTORY: Right-sided ptosis. Headaches. COMPARISON STUDY: CT of the brain dated 02/11/2025 TECHNIQUE: MRI of the brain was performed utilizing various T1 and T2-weighted sequences in the axial , sagittal, and coronal planes. IV contrast was not administered for this examination. FINDINGS: Brain parenchyma: There is age-related involutional change noting moderate subcortical and periventri cular microangiopathic disease. There is no hemorrhage or mass effect. There is no restricted diffusi on typical for acute ischemia. Nash-white matter differentiation is preserved. No extra-axial fluid c ollection is seen. The cerebellar tonsils are normal in configuration. Ventricles, sulci, and cisterns: Prominent secondary to involutional change. Pituitary and sella: Unremarkable. Intracranial vasculature: Normal flow voids are maintained at the skull base. Orbits: The bony orbits are grossly intact. Orbital contents are normal in appearance. Sinuses and mastoids: There is evidence of previous paranasal sinus surgery. There is trace mucosal t hickening within the maxillary and ethmoid sinuses. Mastoid air cells are clear. Calvarium: Unremarkable. Cervical cord: Partially visualized cervical spinal cord is normal in morphology and signal intensity . IMPRESSION: No acute intracranial abnormality ACT 112: Negative or not required by law. Electronically signed by: Marco Gonsales M.D. 02/17/2025 10:36 AM
--- NOTE | 2025-02-17 10:48 | Electrocardiogram Report ---
Test Reason : Blood Pressure : */* mmHG Vent. Rate : 103 BPM Atrial Rate : 103 BPM P-R Int : 140 ms QRS Dur : 72 ms QT Int : 364 ms P-R-T Axes : 55 -9 30 degrees QTcB Int : 476 ms Sinus tachycardia Possible Left atrial enlargement Low voltage QRS Borderline ECG When compared with ECG of 11-Feb-2025 13:42, Sinus rhythm has replaced Junctional rhythm Vent. rate has increased by 35 bpm Incomplete right bundle branch block is no longer Present Confirmed by Kyle Vasquez ([id number]) on 02/17/2025 10:47:51 AM Referred By: REFERRED SELF Confirmed By: Kyle Vasquez
[2025-02-17] MEDS ORDERED: GLUCAGON FOR INJ 1 MG VIAL SQ PRN (10:50)
[2025-02-17] MEDS ORDERED: ONDANSETRON INJ 2 MG/ML 2 ML VIAL IV PRN (10:50)
[2025-02-17] MEDS ORDERED: ACETAMINOPHEN 325 MG TAB PO PRN (10:50)
[2025-02-17] MEDS ORDERED: DEXTROSE 50% 50 ML SYRINGE IV PRN (10:50)
[2025-02-17] MEDS ORDERED: CARBOHYDRATES FOR HYPOGLYCEMIA PO PRN (10:50)
[2025-02-17] MEDS ORDERED: GLUCOSE 10 TAB/TUBE PO PRN (10:50)
[2025-02-17] MEDS ORDERED: GLUCOSE 40% GEL 15 GM TUBE PO PRN (10:50)
[2025-02-17] MEDS: INSULIN ASPART PER UNIT CHARGE SC SCH (12:01)
[2025-02-17] MEDS: VERAPAMIL HCL 240 MG TABCR PO SCH (12:45)
[2025-02-17] MEDS: VALSARTAN 80 MG TAB PO SCH (12:46)
[2025-02-17] MEDS: ENOXAPARIN INJ 40 MG/0.4 ML SYR SQ SCH (12:47)
[2025-02-17] MEDS: Patient's HEIGHT &/or WEIGHT Needed SCH (12:47)
[2025-02-18 08:36] VITALS: TEMP 97.7
[2025-02-18 08:58] LABS: Hematocrit (blood only) 40.8 % (37.0-47.0); Hemoglobin 13.8 g/dl (12.0-16.0); Mean Corpuscular Hemoglobin 31.4 pg (25.0-34.0); Mean Corpuscular Volume 92.9 fL (80.0-100.0); Platelet Count 166 K/uL (130-400); RDW Standard Deviation 43.2 fL (36.4-46.3); Red Blood Count 4.39 M/uL (4.20-5.40); White Blood Count 4.07 K/ul (4.8-10.8)
[2025-02-18 09:21] LABS: Anion Gap 7.0 (3-11); Blood Urea Nitrogen 22.0 mg/dl (6-23); Calcium 9.6 mg/dl (8.6-10.3); Carbon Dioxide 26.0 mmol/L (21-32); Chloride 96.0 mmol/L (98-107); Creatinine Clr Calc Pharmacy 51.6 ml/min; Glucose 194.0 mg/dl (70-99(Fasting)); Magnesium 1.7 mg/dl (1.7-2.4); Potassium 3.8 mmol/L (3.5-5.1); Sodium 129.0 mmol/L (136-145)
[2025-02-18 11:40] VITALS: BP 132/70; RESP 20; O2SAT 98
--- NOTE | 2025-02-18 14:45 | Discharge Summary ---
Discharge Summary Date of Service February 18, 2025 Principal Dx & Hospital Course #1 = Principal Diagnosis (1) Nausea & vomiting: Resolved. Possible viral etiology. Doubt if her symptoms had anything to do with recent increase in metformin dosage (2) Acute hyponatremia: Mild. Hydrochlorothiazide has been discontinued from her medication regimen (3) HTN (hypertension): Continue valsartan and verapamil. Stable (4) Type 2 diabetes mellitus: She will resume her previous diabetic management regimen. ADA diet. Plan Home todayFebruary 18 Admission HPI Per Admitting Provider 80-year-old female patient who was just discharged from the hospital 02/14/25 after episodes of bradycardia And hyperglycemia. Patient's medications were changed by stopping metoprolol, reducing verapamil and adding losartan/HCTZ. Additionally she had metformin increased from 500 daily to 500 bid. She did well over the past 48 hours but then this evening began to develop chest discomfort, dizziness, weakness, nausea and vomiting. Patient also describes belching and hiccups. She thought she was getting sick and vomiting after each dose of metformin. laboratory studies revealed no leukocytosis or anemia. Sodium level was down to 129. BUN was 25 and BUN/creatinine ratio was 24. Glucose was at 139. Troponin was negative. ECG was without acute changes. Patient was hydrated and medicated for nausea with improvement. 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 Today's presentation she denies any significant abdominal pain. Patient went for CT scan of the abdomen/pelvis to rule out a recurrent bezoar or any other intra-abdominal pathology. This was negative. Discharge Plan Discharge Items Patient Disposition: Home - Self-Care Reason For Visit: INTRAC N/V Discharge Diagnosis: Nausea and vomiting of possible viral etiology, mild hyponatremia Condition on Discharge: Good Activity: Resume your previous activity Non-emergency contact: Primary Care Provider Call non-emergency contact if: your symptoms worsen Follow-up/Referrals: Carl Field MD [Primary Care Provider] - Diet: Carb Consistent or DM2 Addtl Attending Provider Instructions: Resume all medications at previous dosages. Hydrochlorothiazide has been removed from valsartan and HCTZ. A new prescription for valsartan alone has been sent to your pharmacy. Follow-up with primary care provider soon as possible Pending Studies at Discharge: No Stand-Alone Forms: [facility]), Smoking Cessation Medications and DC Order Prescriptions: New valsartan 320 mg tablet 320 mg PO DAILY Qty: 30 0RF Continued atorvastatin 20 mg tablet 20 mg PO PM tizanidine 4 mg capsule 4 mg PO DAILY PRN (Reason: muscle spasms) pantoprazole 40 mg tablet,delayed release (DR/EC) 40 mg PO QAM (DME) blood-glucose meter [OneTouch Ultra2 Meter] [facility] See Rx Instructions .Route Qty: 1 0RF Rx Instructions: As directed (DME) OneTouch Ultra Test Strip See Rx Instructions .Route Qty: 100 0RF Rx Instructions: 1x/day (DME) lancets [OneTouch Delica Plus Lancet] [facility] See Rx Instructions .Route Qty: 100 0RF Rx Instructions: 1x/ day verapamil 240 mg Tablet Extended Release 240 mg PO QAM Qty: 14 0RF Rx Instructions: Take 1 tablet by mouth daily metformin 500 mg tablet 500 mg PO BID Qty: 20 0RF Rx Instructions: Take 1 tablet by mouth twice daily Discontinued valsartan-hydrochlorothiazide [Diovan HCT] 320-12.5 mg tablet 1 tab PO DAILY Qty: 14 0RF Rx Instructions: Take 1 tablet by mouth daily Discharge Orders: Discharge Order (Routine); Ordered 02/18/25 Ordered By: Mehdi Callaway Admission Data Admit Date/Time: 02/17/25 07:12 Attending Provider: Mehdi Callaway Admit Provider: Richmond Tran Primary Care Provider: Carl Field Other Providers: Hawa Garza Hospital Stay Data Consultations 02/17/25 04:55 ED Decision to Admit Stat Diagnostic Imagining Performed 02/17/25 01:56 CT angio abdomen pelvis w con Stat 02/17/25 09:36 MRI Brain [MR brain wo con] Stat Pending Results Patient Have Any Pending Studies at Discharge: No Discharge Instructions Given to Patient (Per Discharging Provider) Resume all medications at previous dosages. Hydrochlorothiazide has been removed from valsartan and HCTZ. A new prescription for valsartan alone has been sent to your pharmacy. Follow-up with primary care provider soon as possible Total Time Total Time Spent Total Time Spent (In Minutes): 45-minute Coding Level of Care Code 23531 INP/OBS DISCH >30 MIN Diagnoses Nausea & vomiting R11.2 Acute hyponatremia E87.1 HTN (hypertension) I10 Type 2 diabetes mellitus E11.9
[2025-02-18 14:49] VITALS: PULSE 81
== END 2025-02-18 15:12 | disposition home or self-care (01) | DRG 392 ==
LOC: SUATTDRO → ED 01:26 → SUATTDRO 07:12 → 2S 07:12 → INTOOBSV 07:12 → 2S 09:49